=== PATIENT | male | born 1945 | race Caucasian/White ===

== ENCOUNTER 2024-04-11 13:00 | Inpatient (IN) | payer MEDICARE, SELFPAY ==
[2024-04-09 16:42] VITALS: BMI 22.7
[2024-04-09 17:10] VITALS: BP 121/56
--- NOTE | 2024-04-09 17:11 | ED.GENMED ---
ED Provider Triage
<Johnathan Last PA-C - Last Filed: 04/09/24 17:12>
-
Patient seen by provider in Triage?: Seen in Triage
Attestation: A medical screening examination has been initiated by a qualified medical provider. Based on the assessment performed at this time, it has been determined that an emergent medical condition may exist and the patient has been informed
that further medical evaluation and possible additional diagnostic testing may be needed.
HPI: 78-year-old male presents with daughter who he lives with with complaints of weakness and was told that he had low hemoglobin last week. He has been having intermittent red blood in his stools. He is not anticoagulated. They also notes
cough. He cannot take more than 10 steps without being short of breath. He was told last week his hemoglobin was 7.5. No prior history of anemia.
Vital signs are stable through triage. Initiated workup with labs type and screen COVID flu chest x-ray
GENERAL: Alert , in no apparent distress
EYE: No visual abnormalities.
NECK: Trachea midline
ENT: No visible abnormalities.
LUNGS: No acute respiratory distress
NEUROLOGICAL: Alert and oriented
SKIN: Skin intact. No visible changes.
MUSCULOSKELETAL: Moving extremities normally
PSYCH: Normal and appropriate interaction.
This is a medical evaluation conducted in person to initiate diagnostic evaluation and provide initial therapeutics. Please see further documentation by the treating clinician.
History of Present Illness
<Johnathan Lats PA-C - Last Filed: 04/09/24 17:12>
General
Chief Complaint: Abnormal Lab Value
Time Seen by Provider: 04/10/24 00:56
<Nick Maddox DO - Last Filed: 04/10/24 01:49>
History of Present Illness
History of Present Illness:
TIME OF INITIAL ENCOUNTER: 1 AM
HPI: The patient was brought here by family as he has been failing to thrive and increasingly appears anemic. He was found to be anemic last week as an outpatient. His doctor placed him on iron. Despite this, his symptoms continue. There was
some at least questionable concerns for bloody stools. He arrived with somewhat liquid brown stool in his diaper.
EXAM:
GENERAL: Is somewhat ill-appearing and pale
HEENT: Moist oral mucosa
CARDIOVASCULAR: Regular rate and rhythm
PULMONARY: No respiratory distress, breathing is nonlabored, equal and clear breath sounds
ABDOMEN: Soft and nontender with no peritoneal signs, mildly heme positive brown stool
NEUROLOGIC: Appears equally weak in all extremities, oriented to month and place, strength is equal in all extremities
EXTREMITIES: Moves all extremities equally, no tenderness, no edema
PYSCHIATRIC: Fair but somewhat unreliable historian with limited insight and judgment
NUMBER AND COMPLEXITY OF PROBLEMS ADDRESSED AT THE ENCOUNTER
� Chronic conditions affecting care: Diabetes
� Acute Exacerbation and/or Progression of Chronic Illness: This is an acute problem
� Differential Diagnosis includes: Symptomatic anemia, GI bleed, iron deficiency anemia, electrolyte abnormality
AMOUNT AND/OR COMPLEXITY OF DATA TO BE REVIEWED AND ANALYZED
� I performed an independent evaluation of and my interpretation is:
EKG:
CT:
X-rays:
Laboratory Studies: White blood cell count 5.9, hemoglobin 7.7, sodium 128, glucose 170
Other:
� Review of other/old records: No old records available for review in [facility]
� Clinical information was obtained by an independent historian: I spoke to family at bedside
� Prescriptions/Medications Considered but not given:
� Further testing considered but not performed:
RISK OF COMPLICATIONS AND/OR MORBIDITY OR MORTALITY OF PATIENT MANAGEMENT
� Social determinants of health affecting care: Lives at home with daughter and granddaughter
� Discussion with other providers: Hospitalist for admission
� Escalation of care including admission/observation vs risk of discharge considered: The patient reportedly had a hemoglobin of 10 last September and is now into the sevens. PMD tried iron supplementation however patient has been
doing poorly at home. There has been some concerns for him following. Family states that they cannot take care of him like this.
ANY OTHER UPDATES:
1:30 AM: Daughter signed consent for blood transfusion. The patient does have at least borderline positive stool for blood and his hemoglobin has dropped�will give 2 units of blood.
Phy Exam
<Nick Maddox DO - Last Filed: 04/10/24 01:49>
Physical Exam
Physical Exam:
See HPI
Course
<Johnathan Last PA-C - Last Filed: 04/09/24 17:12>
Orders/Labs/Results
Orders:
Orders
04/09/24 17:10
CR Chest - 2 Views Urgent
Comment:
Reason For Exam: sob
04/09/24 17:23
Type+Screen Urgent
COVID-19 Antigen Urgent
Source: Nasal Swab
Complete Blood Count/With Diff Urgent
Comprehensive Metabolic Panel Urgent
Iron Urgent
Comment: ADD ON
Total Iron Binding Urgent
Influenza A+B Rapid Molecular Urgent
SHEBA Source: Nasal Swab
Specimen Description:
04/09/24 17:54
ABO2 Urgent
BBK Wristband Number:
Associate notified that ABO2 has been ordered: [id number]
Date: 04/09/24
Time: 17:55
Can Filling Room Sweeper ID: [id number]
04/10/24 00:57
* Blood Bank Products Urgent
Blood Bank Products: *Packed RBC Leuko(PRBC's)
Quantity: 2
Transfuse Today: Yes
Reason: Anemia
04/10/24 01:08
Add On- LAB Urgent
Tests Added?: iron, tibc, ferritin
04/10/24 02:00
Flush (0.9% Sodium Chloride) [Flush (Nss)] See Dose Instructions IV PER PROTOCOL
04/10/24 17:23
Ferritin Urgent
Abnormal Lab Results
04/09/24
17:23
RBC 2.95 L 10^6/uL
(4.70-6.10)
Hgb 7.7 L g/dL
(13.0-18.0)
Hct 24.4 L %
(39.0-52.0)
MCH 26.1 L pg
(27.0-31.0)
MCHC 31.6 L g/dL
(33.0-37.0)
RDW 16.2 H %
(11.5-14.5)
Absolute Lymphs (auto) 1.0 L 10^3/uL
(1.2-3.4)
Absolute Monos (auto) 0.8 H 10^3/uL
(0.1-0.6)
Lymphocytes % 16.1 L %
(20.5-51.1)
Monocytes % 13.2 H %
(1.7-9.3)
Sodium 128 L mmol/L
(135-145)
Carbon Dioxide 21 L mmol/L
(22-30)
BUN 32 H mg/dl
(9-20)
Glucose 170 H mg/dl
(70-99)
Iron 43 L ug/dl
(49-181)
% Saturation 11 L %
(20-50)
Total Protein 5.3 L g/dl
(6.3-8.2)
Albumin 3.1 L g/dl
(3.5-5.0)
04/09/24 17:23
04/09/24 17:23
Vital Signs
Initial and Last Documented VS:
Initial Vital Signs
Temp Pulse Resp BP Pulse Ox
36.7 C 84 16 121/56 98
04/09/24 17:10 04/09/24 17:10 04/09/24 17:10 04/09/24 17:10 04/09/24 17:10
Last Documented Vital Signs
Temp Pulse Resp BP Pulse Ox
36.4 C 79 20 138/60 100
04/09/24 20:08 04/10/24 01:15 04/10/24 01:15 04/10/24 01:07 04/10/24 01:15
<Nick Maddox, DO - Last Filed: 04/10/24 01:49>
Orders/Labs/Results
Orders:
Orders
04/09/24 17:10
CR Chest - 2 Views Urgent
Comment:
Reason For Exam: sob
04/09/24 17:23
Type+Screen Urgent
COVID-19 Antigen Urgent
Source: Nasal Swab
Complete Blood Count/With Diff Urgent
Comprehensive Metabolic Panel Urgent
Iron Urgent
Comment: ADD ON
Total Iron Binding Urgent
Influenza A+B Rapid Molecular Urgent
SHEBA Source: Nasal Swab
Specimen Description:
04/09/24 17:54
ABO2 Urgent
BBK Wristband Number:
Associate notified that ABO2 has been ordered: [id number]
Date: 04/09/24
Time: 17:55
Can Filling Room Sweeper ID: [id number]
04/10/24 00:57
* Blood Bank Products Urgent
Blood Bank Products: *Packed RBC Leuko(PRBC's)
Quantity: 2
Transfuse Today: Yes
Reason: Anemia
04/10/24 01:08
Add On- LAB Urgent
Tests Added?: iron, tibc, ferritin
04/10/24 02:00
Flush (0.9% Sodium Chloride) [Flush (Nss)] See Dose Instructions IV PER PROTOCOL
04/10/24 17:23
Ferritin Urgent
Abnormal Lab Results
04/09/24
17:23
RBC 2.95 L 10^6/uL
(4.70-6.10)
Hgb 7.7 L g/dL
(13.0-18.0)
Hct 24.4 L %
(39.0-52.0)
MCH 26.1 L pg
(27.0-31.0)
MCHC 31.6 L g/dL
(33.0-37.0)
RDW 16.2 H %
(11.5-14.5)
Absolute Lymphs (auto) 1.0 L 10^3/uL
(1.2-3.4)
Absolute Monos (auto) 0.8 H 10^3/uL
(0.1-0.6)
Lymphocytes % 16.1 L %
(20.5-51.1)
Monocytes % 13.2 H %
(1.7-9.3)
Sodium 128 L mmol/L
(135-145)
Carbon Dioxide 21 L mmol/L
(22-30)
BUN 32 H mg/dl
(9-20)
Glucose 170 H mg/dl
(70-99)
Iron 43 L ug/dl
(49-181)
% Saturation 11 L %
(20-50)
Total Protein 5.3 L g/dl
(6.3-8.2)
Albumin 3.1 L g/dl
(3.5-5.0)
04/09/24 17:23
04/09/24 17:23
Vital Signs
Initial and Last Documented VS:
Initial Vital Signs
Temp Pulse Resp BP Pulse Ox
36.7 C 84 16 121/56 98
04/09/24 17:10 04/09/24 17:10 04/09/24 17:10 04/09/24 17:10 04/09/24 17:10
Last Documented Vital Signs
Temp Pulse Resp BP Pulse Ox
36.4 C 79 20 138/60 100
04/09/24 20:08 04/10/24 01:15 04/10/24 01:15 04/10/24 01:07 04/10/24 01:15
<Nick Maddox DO - Last Filed: 04/10/24 01:49>
*Critical Care Note
Total Time (30-74mins, 75-104mins- exclusive of procedures): Not Applicable
ED Attending Note
<Johnathan Last PA-C - Last Filed: 04/09/24 17:12>
-
Portions of this chart may have been created with voice recognition software.� Occasional wrong word or��sound alike� substitutions may have occurred due to the inherent limitations of voice recognition software.
Discharge Plan
Departure
Patient Disposition: Admit
Date of Disposition: 04/10/24
Time of Disposition: 01:11
Presentation/result/management discussed w/ accepting MD/DO: Hospitalist
Discharge Problem:
Anemia
Interventions
Interventions:
*Risk Screen - Suicide Last Done: 04/10/24 01:25
*General Assessment Last Done: 04/10/24 01:26
*Neglect/Abuse Screening Last Done: 04/10/24 01:25
Discharge Date and Time
Print Language: WELSH
[2024-04-09 17:42] LABS: % Basophils 0.2 % (0-2); % Eosinophils 0.3 % (0-6); % Immature Granulocytes 0.3 % (0-0.5); % Lymphocytes 16.1 % (20.5-51.1); % Monocytes 13.2 % (1.7-9.3); % Neutrophils 69.9 % (42.2-75.2); Absolute Monocytes 0.8 10^3/uL (0.1-0.6); Absolute Neutrophils 4.1 10^3/uL (1.4-6.5); Hematocrit 24.4 % (39.0-52.0); Hemoglobin 7.7 g/dL (13.0-18.0); Mean Corp Hgb Conc. 31.6 g/dL (33.0-37.0); Mean Corpuscular Hgb 26.1 pg (27.0-31.0); Mean Corpuscular Volume 82.7 fL (80.0-94.0); Nucleated Red Blood Cells % 0 % (-); Platelet Count 371 10^3/uL (130-400); Red Blood Cell Count 2.95 10^6/uL (4.70-6.10); Red Cell Dist. Width 16.2 % (11.5-14.5); White Blood Cell Count 5.9 10^3/uL (4.8-10.8)
[2024-04-09 17:59] LABS: ALT (SGPT) 33 U/L (0-50); AST (SGOT) 34 U/L (17-59); Albumin 3.1 g/dl (3.5-5.0); Alkaline Phosphatase 101 U/L (38-126); Blood Urea Nitrogen 32 mg/dl (9-20); Calcium 8.8 mg/dl (8.4-10.2); Carbon Dioxide 21 mmol/L (22-30); Chloride 100 mmol/L (98-107); Glucose 170 mg/dl (70-99); Potassium 4.1 mmol/L (3.5-5.1); Sodium 128 mmol/L (135-145); Total Bilirubin 0.5 mg/dl (0.2-1.3); Total Protein 5.3 g/dl (6.3-8.2); eGFR > 60.00
[2024-04-09 18:10] LABS: COVID-19 Antigen Negative (Negative)
[2024-04-09 20:08] VITALS: BP 113/50
[2024-04-09 23:54] VITALS: BP 125/54
[2024-04-10] VITALS (22 sets, daily range): BP systolic 97–144; BP diastolic 39–77; PULSE 77–84; BMI 24.6
[2024-04-10 01:31] LABS: Iron 43 ug/dl (49-181)
[2024-04-10 01:40] LABS: Percent Saturation 11 % (20-50); Total Iron Binding Capacity 383 ug/dl (261-462)
[2024-04-10 02:07] LABS: Ferritin 8.5 ng/ml (17.9-464.0)
--- NOTE | 2024-04-10 03:48 | HPS.HSE ---
Family Physician
-
Family Physician: Vamshi Floyd
Chief Complaint
-
Low hemoglobin
History of Present Illness
This is a 78-year-old with past medical history known for diabetes presenting to the emergency department with hemoglobin of 7.5 on outpatient labs.
Prior to interview patient seemed to have dementia. When I saw the patient was able to give me some history. He reports that he has been having fatigue for several weeks now. Reported that he has had gas bowel problems for which he takes Gas-X.
He has mild constipation which improves after passing gas and then he has a regular bowel movement. Denies seeing taylor blood in the stool. Denies black stools. Patient denies history of abdominal pain or reflux symptoms. He denies history of
peptic ulcer disease. He denies NSAID use.
Patient has never had a colonoscopy. He reported that family tells him his had weight loss but he does not feel that way. He did endorse some reduced appetite in the past was states his appetite is now improved. He denies any night sweats.
He denies any cough wheezing fevers or chills.
In the emergency department he was hemodynamically stable with a blood pressure of 120/50 pulse of 67 satting 100% on room air. His x-ray did showed a small right pleural effusion. His hemoglobin was 7.7 down from 10 about 1 year ago according to
family. He had brown stools with some heme positive. Sodium was 128 the rest of the electrolytes were stable. BUN was 30 with a creatinine of 1.0. He had low ferritin, low iron levels and low iron saturation.
Medical History
Past Medical History
Past Medical History: Reports NIDDM
Past Surgical History: Reports Appendectomy
Social History
Tobacco: Non-smoker
Alcohol: None
Drug: None
Personal:
Living: With Family
Employment: Retired
Family History
Family History: Not pertinent
Allergies / Home Medications
Allergies reflects when Allergies were last updated in [employer].
Home Medications with original date entered in [employer]
Allergy/Medication List:
Allergies
Allergy/AdvReac Type Severity Reaction Status Date / Time
No Known Allergies Allergy Verified 04/09/24 17:14
Home Medications
donepezil 04/10/24
metformin 1,000 mg tablet 1,000 mg PO DAILY 04/10/24
Review of Systems
-
Constitutional: Reports Fatigue
EENT: Reports No Symptoms
Respiratory: Reports No Symptoms
Cardiac: Reports No Symptoms
Abdomen/GI: Reports No Symptoms
: Reports No Symptoms
Musculoskeletal: Reports No Symptoms
Skin: Reports No Symptoms
Neurological: Reports No Symptoms
Endocrine: Reports No Symptoms
Hematologic/Lymphatic: Reports No Symptoms
Psych: Reports No Symptoms
Physical Exam
Vital Signs
Vital Signs
Temp Pulse Resp BP Pulse Ox
98.4 F 79 21 118/55 100
04/10/24 03:10 04/10/24 03:30 04/10/24 03:30 04/10/24 03:10 04/10/24 03:30
Physical Exam
General: Well Developed, No Apparent Distress, Comfortable and Conversant
HEENT: NormoCephalic, Anicteric and Moist mucous membranes
Respiratory: Clear
Cardiac: S1/S2 and Regular Rhythm
Breast: Deferred by me
GI: Soft, Non Tender, Non Distended and Normal Bowel Sounds
Rectal: Hem Positive
Genito-urinary: Deferred by me
Musculoskeletal: No Clubbing, No Cyanosis, Edema, Left Lower Extremity (1+) and Edema, Right Lower Extremity (1+)
Neuro: AO x 3 and Nonfocal/grossly intact
Hematologic/Lymphatic: No Lymphadenopathy
Psych: Calm
Laboratory Results
-
04/09/24 17:23
04/09/24 17:23
Laboratory Results
Total Bilirubin 0.5 mg/dl (0.2-1.3) 04/09/24 17:23
AST 34 U/L (17-59) 04/09/24 17:23
ALT 33 U/L (0-50) 04/09/24 17:23
Alkaline Phosphatase 101 U/L (38-126) 04/09/24 17:23
Data Reviewed
-
Diagnostic Radiology: Image Personally Visualized and interpreted and Report Reviewed by me
Lab Data: Labs Reviewed by me
Old Records: Reviewed
Impression/Plan
-
IMPRESSION:
78-year-old with history of [id number] diabetes, dementia who presents to the emergency department with symptomatic anemia and hemoglobin of 7.7. Heme positive stool. Currently had a hemoglobin of 10 about 1 year ago. No prior
colonoscopy. No history of peptic ulcer or GERD. No melena or hematochezia. Low iron, saturation and ferritin. His sodium was 128. On exam he does have 1+ bilateral lower extremity edema. No known history of CHF.
PLAN:
1. Symptomatic anemia - Suspect iron deficiency anemia over the last year.
- admit to med/surg for now
- transfusing 1 unit of iron
- iron 325 supplementation daily
- given ERIS, likely GI losses, not interested in inpatient colonoscopy
- trend h/h, if stable can be d/c'd on iron with outpatient follow up
-no thinners
2. Edema - no known chf, bp stable
- ecg
- check bnp, if abnormal check echo
- check tsh
3. DM II
- insulin sliding scale for now
- metformin bid
4. Hyponatremia - Looks euvolemic but may be dry
- getting blood
- check orthostatics
- check urine Na and osms
- fluids versus restriction pending results and repeat Na
DVT PPX - SCDs for now
Code status - full code
--- NOTE | 2024-04-10 05:35 | EDRN ---
Spoke w/ admitting team regarding ordered AM labs/second unit of blood ordered. Per Tavia Dawn and Dr. Cannon, pt. does not need second blood transfusion at this time. RN to obtain ordered morning labs 2 hours after blood transfusion
completion, which is at 06:33.
[2024-04-10 06:49] LABS: Hematocrit 26.4 % (39.0-52.0); Hemoglobin 8.4 g/dL (13.0-18.0); Mean Corp Hgb Conc. 31.8 g/dL (33.0-37.0); Mean Corpuscular Hgb 27.3 pg (27.0-31.0); Mean Corpuscular Volume 85.7 fL (80.0-94.0); Mean Platelet Volume 8.9 fL (7.4-10.4); Platelet Count 321 10^3/uL (130-400); Red Blood Cell Count 3.08 10^6/uL (4.70-6.10); Red Cell Dist. Width 16.5 % (11.5-14.5); White Blood Cell Count 6.6 10^3/uL (4.8-10.8)
[2024-04-10 07:02] LABS: Osmolality Urine 944 mOsm/kg (300-900)
[2024-04-10 07:06] LABS: Urine Sodium 134 mmol/L (30-90)
[2024-04-10 07:11] LABS: NT-proBNP 2080 pg/ml
[2024-04-10 07:15] LABS: Blood Urea Nitrogen 31 mg/dl (9-20); Calcium 8.2 mg/dl (8.4-10.2); Carbon Dioxide 21 mmol/L (22-30); Chloride 103 mmol/L (98-107); Estimated Creatinine Clearance 73 ml/min; Glucose 167 mg/dl (70-99); Magnesium 2.1 mg/dl (1.6-2.3); Potassium 4.2 mmol/L (3.5-5.1); Sodium 132 mmol/L (135-145); eGFR > 60.00
--- NOTE | 2024-04-10 09:13 | CON.GI ---
Addendum entered and electronically signed by Narciso Richardson MD 04/10/24 15:55:
Patient seen and examined, agree with nurse practitioner note. Patient is an 78-year-old male with past medical history as noted presents with rectal bleeding and leakage. He said the symptoms for the past several months, noted to be anemic with
iron deficient parameters. He has had significant weight loss around this time also. He has never had a colonoscopy, though otherwise has been medically doing well up until this time. Rectal exam by nurse practitioner showed palpable mass in the
rectum. Exam otherwise is benign, trace lower extremity edema. I had extensive discussion with the patient and his family, discussing that this highly suspicious for malignancy. He is unsure if he would want to pursue any treatment, and is
agreeable though was not sure and is agreeable for flexible sigmoidoscopy tomorrow which we will plan. Further recommendations pending flexible sigmoidoscopy results.
Addendum entered and electronically signed by NENO Roblero 04/10/24 14:40:
I updated daughter and son about mass with patient consent. They will review with patient for work up for consider comfort with no texting vs colonoscopy or flex to eval mass and CT next. Family contact to be added to chart per nursing staff.
Original Note:
Consultation
-
Date/Time Consultation Requested: 04/10/24629
Date/Time Consultation Performed: 04/10/24 0915
Requesting Provider: Kassandra vidales MD
Performing Provider: NENO Zheng, Hebert Richardson MD
Reason for Consultation: anemia
Medical History
Chief Complaint / HPI
Chief Complaint: change on bowel habits, shortness of breath
History of Present Illness:
Pt is an 78yo with hx NIDDM with onset of shortness of breath, weakness and several months of change on bowel habit with noted rectal bleeding and leakage. He also admits to recent onset LE edema. He was recently noted with low hbg and presents to
ER for evaluation. On admission he is noted with hbg 7.7 with normal MCV iron deficiency with Na 132, BUN 31, Albumin 3.1. ER rectal with mild heme + stool.
He currently states about 6 months ago need for use of attend for rectal leakage. Symptoms have progressed over time with some weight loss and decreased appetite. He also admits to seeing occasional blood. He denies odynophagia, dysphagia,
GERD, nausea, vomiting, abdominal pain, constipation, or black stools. + NSAID use several times per week. Denies hx EGD or colonoscopy in past.
Past Medical History
Past Medical History: NIDDM
Social History
Tobacco: Former Smoker
Alcohol: Former (heavy use many years ago)
Drug: None
Living: With Family
Employment: Retired
Family History
Family History: Other (denies family hx colon CA or polyps)
Allergies / Home Medications
Allergy/AdvReac Type Severity Reaction Status Date / Time
No Known Allergies Allergy Verified 04/09/24 17:14
�Medication �Instructions �Recorded
donepezil 10 mg tablet 10 mg PO HS 04/10/24
glipizide 2.5 mg tablet, extended 2.5 mg PO DAILY 04/10/24
release 24 hr
metformin 1,000 mg tablet 1,000 mg PO BID 04/10/24
simvastatin 40 mg tablet 40 mg PO QPM 04/10/24
Review of Systems
-
History Source: Patient and Family (pt declined for provider to call )
Constitutional: Reports Weight Loss
EENT: Reports No Symptoms
Respiratory: Reports No Symptoms
Abdomen/GI: Reports Diarrhea (with fecal leakage ) and Bloody Stools
: Reports No Symptoms
Musculoskeletal: Reports No Symptoms
Neurological: Reports Weakness
Endocrine: Reports No Symptoms
Hematologic/Lymphatic: Reports Bleeding
Vital Signs
Temp Pulse Resp BP Pulse Ox
98.4 F 68 18 114/55 98
04/10/24 04:33 04/10/24 07:00 04/10/24 07:00 04/10/24 07:00 04/10/24 07:00
Physical Exam
Exam
General: Other (pale appearing )
HEENT: Normocephalic and Anicteric
Respiratory: Clear
Cardiac: Regular Rhythm
GI: Soft and Distended (minimal )
Rectal: Other (palpable rectal mass at tip of finger with noted incontinence of stool and blood assist with nurse Wilbert -- pt agreeable to exam )
Musculoskeletal: No Clubbing and No Cyanosis
Skin: Warm and Dry
Neuro: Awake, Alert, AO x 3 and Other (occasional forgetfulness to questions)
Psych: Calm
Results
WBC 6.6 10^3/uL (4.8-10.8) 04/10/24 06:41
Hgb 8.4 g/dL (13.0-18.0) L 04/10/24 06:41
Hct 26.4 % (39.0-52.0) L 04/10/24 06:41
MCV 85.7 fL (80.0-94.0) 04/10/24 06:41
Plt Count 321 10^3/uL (130-400) 04/10/24 06:41
Absolute Neuts (auto) 4.1 10^3/uL (1.4-6.5) 04/09/24 17:23
Sodium 132 mmol/L (135-145) L 04/10/24 06:42
Potassium 4.2 mmol/L (3.5-5.1) 04/10/24 06:42
Chloride 103 mmol/L (98-107) 04/10/24 06:42
Carbon Dioxide 21 mmol/L (22-30) L 04/10/24 06:42
BUN 31 mg/dl (9-20) H 04/10/24 06:42
Creatinine 0.8 mg/dL (0.7-1.3) 04/10/24 06:42
Calcium 8.2 mg/dl (8.4-10.2) L 04/10/24 06:42
Total Bilirubin 0.5 mg/dl (0.2-1.3) 04/09/24 17:23
AST 34 U/L (17-59) 04/09/24 17:23
ALT 33 U/L (0-50) 04/09/24 17:23
Alkaline Phosphatase 101 U/L (38-126) 04/09/24 17:23
Diagnostic Image Results:
Prior GI Procedures:
EGD: pt denies
Colonoscopy: pt denies
Assessment / Plan
-
Pt is an 78yo with hx NIDDM with onset of shortness of breath, weakness and several months of change on bowel habit with noted rectal bleeding and leakage. He also admits to recent onset LE edema. He was recently noted with low hbg and presents to
ER for evaluation. On admission he is noted with hbg 7.7 with normal MCV iron deficiency with Na 132, BUN 31, Albumin 3.1. ER rectal with mild heme + stool. He currently states about 6 months ago need for use of attend for rectal leakage.
Symptoms have progressed over time with some weight loss and decreased appetite. He also admits to seeing occasional blood. + NSAID use several times per week. Denies hx EGD or colonoscopy in past. / noted papable rectal mass.
-new iron deficiency anemia
-change in bowel habits with fecal leakage
-retal mass on exam 04/10
-weakness with failure to thrive/decreased appetite
-LE edema
-occasional NSAID use
other med problems:
-NIDDM
PLAN:
etiology of symptoms of change in bowel pattern and new Iron deficiency anemia concern for occult GI process with palpable rectal mass on exam, less likely but in differential - PUD with NSAID use, ectasia vs other
agree with transfusion
will need to consider EGD/colon
pt states prefers OP testing
if pt declining IP testing consider CT prior to discharge
I discuss with patient he will continue to have bowel leakage until completes work up for palpable mass
trend hbg
change in IV iron
add PPI daily
pt remain on regular diet
I offered to call family and pt declines
I reviewed with nursing to contact GI when family arrives to further discuss as pt declining for me to call
-
-
Thank you for consultation and allowing me to participate in the patient's care. Please call the [facility] GI physician during the after hours with any questions or concerns.
[2024-04-10 09:47] LABS: Glucose - Point of Care 176 mg/dl (70-99)
--- NOTE | 2024-04-10 10:08 | W.PN.HOSP.TC ---
Addendum entered and electronically signed by Ranjit Ulloa MD 04/10/24 16:14:
Seen and examined by me independently in collaboration with the medical record librarian.
Lab data and imaging data reviewed.
Addendum as below :
Patient presents with severe symptomatic anemia with iron deficiency. He also has rectal incontinence and found to have rectal tumor by digital exam by GI. Never had a colonoscopy. All concerning for colon malignancy. Patient currently declining
endoscopic eval. Will continue to follow see if he changes his mind. Status posttransfusion. Follow H&H.
Patient with bilateral lower extremity but denies any heart disease. No JVD. Denies any shortness of breath. Bibasilar crackles heard. Check an echocardiogram. Currently not hypoxic.
Discussed GI
Total time spent on today's encounter was 52 minutes which included time spent in counseling the patient/family regarding diagnosis and treatment plan as listed above, goals of care, and symptom management. Case was discussed with nursing staff,
specialists, and care coordinators/case management. All labs and imaging personally reviewed by me. Remainder the time spent in detailed review of previous records, lab data, imaging, and other medical provider documentation.
Original Note:
Today's Communication/Plan
-
C/w Iron replacement. Pending echo. Fluid restriction. Monitor H&H
Assessment / Plan
Assessment / Plan
78 year old man
#Melena
#unintentional Weight loss
#New onset Anemia
- Rectal mass palpable on physical exam.
- GI rec IP EGD/colonoscopy, but patient declined; would prefer OP. Recommending CT scan abdomen w/ IV/Oral prior to discharge if he refuses EGD/Colonscopy.
Apparently patient declining discussion with family regarding mass and preferring out patient workup.
#Anemia, likely Iron Deficiency
- Hgb 7.7 on admission, s/p 1U PRBC with improvement to 8.4.
- Iron studies show low iron, low saturation, low ferritin
- PO & IV iron replacement
- Recheck H&H
#BL/LE Edema,
- possibly secondary to CHF vs. fluid overload from transfusion (though less likely given extent of edema & chronicity of other symptoms)
- elevated ProBNP, R pleural effusion, complains of chronic cough with occasional clear/yellow sputum
- will give 1 dose IV Lasix 20mg. Check ECHO.
#Small Left Pleural Effusion - saturations >88%. No shortness of breath.
#Hyponatremia, possible SIADH
- 128 on admission with high urine sodium and high urine osmolality. Improved to 132 this morning w/o fluids.
- Given concern for rectal mass, malignant cause of SIADH is a serious consideration
- Fluid restriction 40oz
#NIDDM - hold glipizide c/w metformin. LDISS
#Hypercholesterolemia - c/w simvastatin
#Dementia - c/w donepezil
Diet: 2000 Calorie Diabetic, 40oz fluid restriction
DVT PPx: SCDs
Code Status: Full Code
Anticipated Discharge: 24 - 48 hours
Subjective/Interval History
-
Feeling well this morning. No shortness of breath, dizziness, weakness. He is feeling stronger than when he came in. he denies any taylor bloody bowel movements.
Objective Data
-
Labs:
Laboratory Results
04/10/24 04/10/24
06:41 06:42
WBC 6.6
Hgb 8.4 L
Hct 26.4 L
Plt Count 321
Sodium 132 L
Potassium 4.2
Chloride 103
Carbon Dioxide 21 L
BUN 31 H
Creatinine 0.8
Glucose 167 H
Calcium 8.2 L
Vital Signs:
Vital Signs
Temp Pulse Resp BP Pulse Ox
98.4 F 74 24 106/50 100
04/10/24 04:33 04/10/24 10:00 04/10/24 10:00 04/10/24 10:00 04/10/24 10:00
I&O
04/09/24 04/10/24 04/11/24
06:59 06:59 06:59
Intake Total 250 / 250
Balance 250 / 250
Review of Systems
-
Unable to obtain full review of systems at this time due to: Dementia
History Source: Patient
Constitutional: Reports No Symptoms
EENT: Reports No Symptoms Reported
Respiratory: Reports No Symptoms
Cardiac: Reports No Symptoms
Abdomen/GI: Reports No Symptoms
Genitourinary: Reports No Symptoms
Musculoskeletal: Reports No Symptoms
Skin: Reports No Symptoms
Neuro: Reports No Symptoms
Physical Exam
-
General: Well Developed, Well Nourished, No Apparent Distress and Comfortable
HEENT: Normocephalic, Atraumatic, Moist Mucous Membranes, Anicteric, PERRLA, Nose Appears Normal and Ears Appear Normal
Respiratory: Clear to Auscultation; Negative Wheezes, Rales or Rhonchi
Cardiac: Regular Rhythm and S1/S2; Negative Murmur
GI: Soft, Nontender, Nondistended and Normal Bowel Sounds
Musculoskeletal: No Clubbing, No Cyanosis, Edema, Right Lower Extrem and Edema, Left Lower Extrem
Skin: Warm and Dry
Neuro: AO x 3
[2024-04-10] MEDS: PROTONIX IV 40 MG IV (10:29)
[2024-04-10] MEDS: GLUCOPHAGE 1000 MG PO ×2 (10:30→18:03)
[2024-04-10] MEDS: NSS (PRESERVATIVE FREE) 10 ML IV (10:30)
[2024-04-10] MEDS: NOVOLOG FLEXPEN-LOW RESISTANCE SC ×2 (11:05→15:06)
[2024-04-10] MEDS: LASIX 20 MG IV (11:46)
[2024-04-10 14:30] LABS: Glucose - Point of Care 213 mg/dl (70-99)
[2024-04-10] MEDS: FERRLECIT 110 MG IV (15:06)
[2024-04-10] MEDS: FLUSH (NSS) 1 FLUSH IV (15:07)
--- NOTE | 2024-04-10 15:07 | PTCARENOTE ---
Received pt from ER via stretcher, accompanied by ER staff. Pt AAO x3, forgetful. ALBRECHT slowly; unable to stand. Pt transferred to bed with assist x3. VSS. Pt has (+) sacral/bilat LE edema. On room air- pulseox 98%, no SOB noted. Abd large,
soft, to start 2000 neda diet with 1200 ml flreswtriction. Voided in urinal upon arrival to unit. Resting in bed at present, no c/o;family at bedside. Will continue to monitor.
[2024-04-10 17:58] LABS: Glucose - Point of Care 195 mg/dl (70-99)
[2024-04-10] MEDS: NOVOLOG FLEXPEN-LOW RESISTANCE 1 UNITS SC (18:03)
[2024-04-10] MEDS: MELATONIN 5 MG PO (19:51)
[2024-04-10 21:19] LABS: Glucose - Point of Care 206 mg/dl (70-99)
[2024-04-11] VITALS (8 sets, daily range): BP systolic 15–145; BP diastolic 52–70
[2024-04-11 05:57] LABS: Glucose - Point of Care 157 mg/dl (70-99)
[2024-04-11 07:34] LABS: Hematocrit 24.7 % (39.0-52.0); Hemoglobin 8.1 g/dL (13.0-18.0); Mean Corp Hgb Conc. 32.8 g/dL (33.0-37.0); Mean Corpuscular Hgb 27.3 pg (27.0-31.0); Mean Corpuscular Volume 83.2 fL (80.0-94.0); Mean Platelet Volume 9.4 fL (7.4-10.4); Platelet Count 316 10^3/uL (130-400); Red Blood Cell Count 2.97 10^6/uL (4.70-6.10); Red Cell Dist. Width 16.9 % (11.5-14.5); White Blood Cell Count 5.9 10^3/uL (4.8-10.8)
[2024-04-11 08:00] LABS: Blood Urea Nitrogen 33 mg/dl (9-20); Calcium 8.3 mg/dl (8.4-10.2); Carbon Dioxide 20 mmol/L (22-30); Chloride 103 mmol/L (98-107); Estimated Creatinine Clearance 53 ml/min; Glucose 137 mg/dl (70-99); Potassium 3.8 mmol/L (3.5-5.1); Sodium 132 mmol/L (135-145); eGFR > 60.00
--- NOTE | 2024-04-11 08:49 | W.PN.HOSP.TC ---
Addendum entered and electronically signed by Ranjit Ulloa MD 04/11/24 15:55:
Seen and examined by me independently in collaboration with the medical assistant internal medicine.
Lab data and imaging data reviewed.
Addendum as below :
Sigmoidoscopy shows obstructing rectal mass. The scope could not be passed beyond it. Consult colorectal surgery. Await CT abdomen pelvis and chest report.
Improved H&H with transfusion. Follow CBC.
Also clinical concern for subacute CHF decompensation with increasing lower extremity edema possibly combination of LV dysfunction and severe anemia. Consult cardiology for newfound LV dysfunction. Start on IV Lasix and follow weights and BMP.
Discussed with son at bedside.
Total time spent on today's encounter was 52 minutes which included time spent in counseling the patient/family regarding diagnosis and treatment plan as listed above, goals of care, and symptom management. Case was discussed with nursing staff,
specialists, and care coordinators/case management. All labs and imaging personally reviewed by me. Remainder the time spent in detailed review of previous records, lab data, imaging, and other medical provider documentation.
Pxiticsuhiyl-denidhwqvodd-iakhpri secondary to CHF not SIADH. FR and diuretics .
Original Note:
Today's Communication/Plan
-
Pending flex sig today. C/ow Lasix/ Monitor H&H.
Assessment / Plan
Assessment / Plan
78 year old man
#Melena
#unintentional Weight loss
#New onset Anemia
- Rectal mass palpable on physical exam.
- GI rec IP EGD/colonoscopy, but patient declined; would prefer OP. Recommending CT scan abdomen w/ IV/Oral prior to discharge if he refuses EGD/Colonscopy.
Agreed to flex sig. Will go today after prep
#Anemia, likely multifactorial (Acute Blood Loss/Iron Deficiency)
- Hgb 7.7 on admission, s/p 1U PRBC with improvement to 8.4.
- Iron studies show low iron, low saturation, low ferritin
- PO & IV iron replacement
- Hgb 8.1 today from 8.4.
- Going for flex sig today
#Acute Exacerbation of HFmrEF
- elevated ProBNP, R pleural effusion, complains of chronic cough with occasional clear/yellow sputum
- C/w Lasix 20mg IV.
- Echo EF 40-45%
#Small Left Pleural Effusion - saturations >88%. No shortness of breath.
#Hyponatremia, possible SIADH
- 128 on admission with high urine sodium and high urine osmolality. Improved to 132 this morning w/o fluids.
- Given concern for rectal mass, malignant cause of SIADH is a serious consideration
- Fluid restriction 40oz
#NIDDM - hold glipizide, c/w metformin. LDISS
#Hypercholesterolemia - c/w simvastatin
#Dementia - c/w donepezil
Diet: 2000 Calorie Diabetic, 40oz fluid restriction
DVT PPx: SCDs
Code Status: Full Code
Anticipated Discharge: 24 - 48 hours
Subjective/Interval History
-
Still having rectal bleeding. No abdominal pain, nausea, vomiting, fever, chills, shortness of breath or chest pain.
Objective Data
-
Labs:
Laboratory Results
04/11/24
07:02
WBC 5.9
Hgb 8.1 L
Hct 24.7 L
Plt Count 316
Sodium 132 L
Potassium 3.8
Chloride 103
Carbon Dioxide 20 L
BUN 33 H
Creatinine 1.0
Glucose 137 H
Calcium 8.3 L
Vital Signs:
Vital Signs
Temp Pulse Resp BP Pulse Ox
98.8 F 72 18 112/49 99
04/10/24 23:14 04/10/24 23:14 04/10/24 23:14 04/10/24 23:14 04/10/24 23:14
I&O
02/06/2904/11/24 04/12/24
06:59 06:59 06:59
Intake Total 250 / 250 1070 / 1070
Output Total 1325 / 1325
Balance 250 / 250 -255 / -255
Review of Systems
-
History Source: Patient
All other systems: Reviewed and negative
Constitutional: Reports No Symptoms
EENT: Reports No Symptoms Reported
Respiratory: Reports No Symptoms
Cardiac: Reports No Symptoms
Abdomen/GI: Reports Bloody Stools; Denies Abdominal Pain, Nausea, Vomiting, Diarrhea or Hematemesis
Breast: Reports N/A
Genitourinary: Reports No Symptoms
Musculoskeletal: Reports No Symptoms
Skin: Reports No Symptoms
Neuro: Reports No Symptoms
Physical Exam
-
General: Well Developed, Well Nourished, No Apparent Distress and Comfortable
HEENT: Normocephalic, Atraumatic, Moist Mucous Membranes, Anicteric, Winifred Conjunctivae, PERRLA, Nose Appears Normal and Ears Appear Normal
Respiratory: Clear to Auscultation; Negative Wheezes, Rales or Rhonchi
Cardiac: Regular Rhythm, S1/S2 and Murmur
Breast: N/A
GI: Soft, Nontender, Nondistended and Normal Bowel Sounds
Musculoskeletal: No Clubbing, No Cyanosis, Edema, Right Lower Extrem and Edema, Left Lower Extrem
Skin: Warm and Dry
Neuro: AO x 3
[2024-04-11 09:06] LABS: Glucose - Point of Care 154 mg/dl (70-99)
[2024-04-11] MEDS: GLUCOPHAGE 1000 MG PO ×2 (09:06→17:17)
[2024-04-11] MEDS: PROTONIX IV 40 MG IV (09:06)
[2024-04-11] MEDS: NOVOLOG FLEXPEN-LOW RESISTANCE 1 UNITS SC (09:06)
[2024-04-11] MEDS: NSS (PRESERVATIVE FREE) 10 ML IV (09:06)
[2024-04-11 12:21] LABS: Glucose - Point of Care 112 mg/dl (70-99)
[2024-04-11] MEDS: NOVOLOG FLEXPEN-LOW RESISTANCE SC ×2 (12:50→16:58)
[2024-04-11] MEDS: OMNIPAQUE 50 ML PO (13:21)
[2024-04-11] MEDS: FERRLECIT 110 MG IV (13:35)
--- NOTE | 2024-04-11 14:27 | PTCARENOTE ---
pt back from GI lab s/p Flex sigmoid. pt is AAO*3, Vss. pt oriented to the room. call bergman within the reach.
--- NOTE | 2024-04-11 15:37 | CM ---
Pt seen bedside w/ son, Peter. Initial assessment completed. Admitted for low hgb.
Pt reports that he lives w/ family in a 2STH- 2 steps to enter. Pt reports he uses cane primarily to ambulate and has grab bars in the bathroom for support. Pt stated his daughter assists w/ personal care, dressing and meals.
Pt denies SNF/VN/PT hx.
Address, point of contact and insurance verified. Pt is showing up as self-pay, however, pt confirmed he has Medicare
Pt requested to have his son, Peter, added to contact list. appellate law clerk to update
PCP: Dr. Floyd
Pharmacy: [facility]
No skilled PT needed
Pt LOC changed to IP today
Plan: Home; no needs likely
[2024-04-11 16:51] LABS: Glucose - Point of Care 106 mg/dl (70-99)
[2024-04-11] MEDS: LIPITOR 20 MG PO (17:17)
[2024-04-11 21:31] LABS: Glucose - Point of Care 184 mg/dl (70-99)
[2024-04-11] MEDS: ARICEPT 10 MG PO (22:19)
[2024-04-11] MEDS: MELATONIN 10 MG PO (22:19)
[2024-04-12] MEDS: ROBITUSSIN 100 MG PO (01:13)
[2024-04-12 06:00] VITALS: BMI 22.8
--- NOTE | 2024-04-12 06:13 | W.PN.GI.CBS2 ---
Today's Communication / Plan
-
Please see assessment and plan for details.
Assessment / Plan
-
1. Rectal mass: Consistent with adenocarcinoma, though final pathology is pending. I reviewed CT scan with him, no signs of distant metastasis. Will await final pathology, though will defer conversations about possible treatment to oncology and
surgery.
We will sign off for now, please call back with any further questions.
Subjective
Subjective
Date of Service: April 12, 2024
Patient feeling okay, tolerated diet without difficulty. No abdominal pain, fever or chills. CT scan noted, rectal mass noted though no obvious metastasis.
Objective
Data Reviewed
Laboratory Data:
Laboratory Results
Magnesium 2.1 mg/dl (1.6-2.3) 04/10/24 06:42
Total Bilirubin 0.5 mg/dl (0.2-1.3) 04/09/24 17:23
AST 34 U/L (17-59) 04/09/24 17:23
ALT 33 U/L (0-50) 04/09/24 17:23
Alkaline Phosphatase 101 U/L (38-126) 04/09/24 17:23
Vital Signs and I&O:
Vital Signs
Temp Pulse Resp BP Pulse Ox
98.7 F 81 18 145/68 98
04/11/24 23:40 04/11/24 23:40 04/11/24 23:40 04/11/24 23:40 04/11/24 23:40
I&O
04/10/24 04/11/24 04/12/24
06:59 06:59 06:59
Intake Total 250 / 250 1070 / 1070 240 / 240
Output Total 1325 / 1325 250 / 250
Balance 250 / 250 -255 / -255 -10 / -10
Physical Exam
Physical Exam
General: NAD
Abdomen: normal bowel sounds, soft, no tenderness, no masses or bruits, no ascites
[2024-04-12 07:24] LABS: Hematocrit 25.9 % (39.0-52.0); Hemoglobin 8.4 g/dL (13.0-18.0); Mean Corp Hgb Conc. 32.4 g/dL (33.0-37.0); Mean Corpuscular Hgb 27.4 pg (27.0-31.0); Mean Corpuscular Volume 84.4 fL (80.0-94.0); Mean Platelet Volume 9.1 fL (7.4-10.4); Platelet Count 320 10^3/uL (130-400); Red Blood Cell Count 3.07 10^6/uL (4.70-6.10); Red Cell Dist. Width 17.5 % (11.5-14.5)
[2024-04-12 07:40] LABS: Glucose - Point of Care 192 mg/dl (70-99)
[2024-04-12 07:45] VITALS: BP 123/58
[2024-04-12 07:50] LABS: Blood Urea Nitrogen 36 mg/dl (9-20); Calcium 8.7 mg/dl (8.4-10.2); Carbon Dioxide 24 mmol/L (22-30); Chloride 103 mmol/L (98-107); Estimated Creatinine Clearance 59 ml/min; Glucose 159 mg/dl (70-99); Potassium 4.2 mmol/L (3.5-5.1); Sodium 129 mmol/L (135-145); eGFR > 60.00
[2024-04-12] MEDS: PROTONIX IV 40 MG IV (09:06)
[2024-04-12] MEDS: NOVOLOG FLEXPEN-LOW RESISTANCE 1 UNITS SC (09:06)
[2024-04-12] MEDS: NSS (PRESERVATIVE FREE) 10 ML IV (09:07)
--- NOTE | 2024-04-12 09:41 | CON.CRS ---
Consultation
-
Date/Time Consultation Requested: 04/11/2024,
Date/Time Consultation Performed: 04/12/2024, 08:00
Requesting Provider: Sai Larson MD
Performing Provider: Johnathan Figueroa MD
Reason for Consultation: rectal cancer
Medical History
-
Chief Complaint: weakness/bloody stools
History of Present Illness:
78-year-old male presents to [facility] on 04/10/2024 complaining of weakness and bloody stools. He has not been able to take more than 10 steps without being short of breath in the recent past. He had blood work as an outpatient that showed a
hemoglobin of 7.5 which was new for him. The patient denies any bloating or cramping and has been eating okay at home. He has though lost about 15 pounds in the past 3 months. The bleeding is intermittent throughout the past few months. He has
no issues with urination. His bowel movements have been normal and regular for him. He had an appendectomy at 4 years old but otherwise has had no other bowel surgeries in the past. He denies a family history of rectal or colon cancer. He has
never had a colonoscopy.
Gastroenterology was consulted and the patient and a palpable mass was noted on rectal exam. He underwent a flexible sigmoidoscopy by Dr. Richardson yesterday which showed a fungating partially obstructing large mass in the distal rectum. The mass
was circumferential unable to be passed with an endoscope. There was active oozing present. He then subsequently underwent a CT of the chest abdomen and pelvis for metastatic workup. The 5 cm soft tissue density mass in the rectum was again seen.
There was no definitive evidence of metastatic disease otherwise. On admission his hemoglobin was 7.7 and is 8.4 today. His vitals have remained normal. He was transfused 1 unit the day of admission. Given the above findings, we have been
consulted for further surgical opinion.
Past Medical History
Past Medical History: NIDDM
Past Surgical History: Appendectomy
Social History
Tobacco: Former Smoker
Alcohol: Former
Drug: None
Living: With Family
Family History
Family History: Reviewed & Not Pertinent
Allergies / Home Medications
Allergy/AdvReac Type Severity Reaction Status Date / Time
No Known Allergies Allergy Verified 04/10/24 14:37
�Medication �Instructions �Recorded �Confirmed �Type
donepezil 10 mg tablet 10 mg PO HS Neurological Condition 04/10/24 04/10/24 History
glipizide 2.5 mg tablet, extended 2.5 mg PO DAILY Diabetes 04/10/24 04/10/24 History
release 24 hr
metformin 1,000 mg tablet 1,000 mg PO BID Diabetes 04/10/24 04/10/24 History
simvastatin 40 mg tablet 40 mg PO QPM High Cholesterol 04/10/24 04/10/24 History
Review of Systems
-
History Source: Patient
Constitutional: Weight Loss, Fatigue and Other (weakness)
Abdomen/GI: Bloody Stools
A 10 point review of systems was completed, and was negative except as per HPI.
Physical Exam
Vital Signs
Temp 97.9 F 04/12/24 07:45
Pulse 76 04/12/24 07:45
Resp Rate 20 04/12/24 07:45
Blood pressure 123/58 04/12/24 07:45
SaO2 96 04/12/24 07:45
04/11/24 04/12/24 04/13/24
06:59 06:59 06:59
Actual Weight 69.003 kg
Body Mass Index (BMI) 24.6
Lab Results / Allergies
04/12/24 06:55
04/12/24 06:55
WBC 7.0 10^3/uL (4.8-10.8) 04/12/24 06:55
Hgb 8.4 g/dL (13.0-18.0) L 04/12/24 06:55
Hct 25.9 % (39.0-52.0) L 04/12/24 06:55
Plt Count 320 10^3/uL (130-400) 04/12/24 06:55
Abs Immat Gran (auto) 0.0 10^3/uL (0-0.05) 04/09/24 17:23
Neutrophils % 69.9 % (42.2-75.2) 04/09/24 17:23
Allergy/AdvReac Type Severity Reaction Status Date / Time
No Known Allergies Allergy Verified 04/10/24 14:37
Physical Exam
General: No Apparent Distress and Comfortable
GI: Soft, Non Tender and Non Distended
Rectal: Other (5-6cm into rectum a circumferential mass was noted with anterior portion more prominent, blood on fingertip)
Skin: Warm and Dry
Neuro: AO x 3
Hematologic/Lymphatic: No Lymphadenopathy
Psych: Calm
Data Reviewed
-
CT Scan: Image Personally Visualized and interpreted, Report Reviewed by me and Discussed with Patient
Medical Tests (Nuc Med, Echo etc): Report Reviewed by me and Discussed with Patient
Labs: Labs Reviewed by me, Discussed with Physician and Discussed with Patient
Old Records: Reviewed
Assessment / Plan
-
Assessment: 78-year-old male presented to the ER with intermittent bleeding, weakness, and weight loss, found with anemia status post 1 unit packed red blood cells and rectal mass on sigmoidoscopy
Plan:
-Discussed studies at length with the patient. Given he is able to eat and continue to pass stool, there is no need for urgent colostomy diversion. However we did discuss should things change and he obstruct, he would require surgery.
-MRI pelvis with rectal cancer protocol ordered given partial obstruction
-Stool softener MiraLAX daily
-CEA ordered
-Raissa Ulrich, our rectal cancer nurse navigator, has been notified of his case
-Will need eventual chemo and radiation. The patient is interested in pursuing full treatment at this time.
-Will update his son, Severino Perez
--- NOTE | 2024-04-12 09:52 | W.PN.HOSP.TC ---
Addendum entered and electronically signed by Ranjit Ulloa MD 04/12/24 12:33:
Seen and examined by me independently in collaboration with the medical service technician.
Lab data and imaging data reviewed.
Addendum as below :
Denies any abdominal pain. Tolerating diet.
Denies any shortness of breath or chest pain.
Chest clear.
Abdomen benign. Bilateral lower extremity edema as before noted.
CT of the abdomen and pelvis noted.
Partially obstructing rectal tumor with no obvious metastatic disease on the CT images. Colorectal surgery consulted who is requesting an MRI of the pelvis. Patient seems to be agreeable for surgery.
Echo showed EF in the mid range and he is clinically seems to have heart failure clinically. Continue with Lasix.Await cardiology input.
Hyponatremia in setting of hypervolemia-cw FR and Lasix and follow.Check TSH/Cortisol.
DW Cards DIRECTOR SEMICONDUCTOR
Total time spent on today's encounter was 52 minutes which included time spent in counseling the patient/family regarding diagnosis and treatment plan as listed above, goals of care, and symptom management. Case was discussed with nursing staff,
specialists, and care coordinators/case management. All labs and imaging personally reviewed by me. Remainder the time spent in detailed review of previous records, lab data, imaging, and other medical provider documentation.
Original Note:
Today's Communication/Plan
-
Colorectal/Cardiology to see. Additional imaging ordered per Colorectal. C/w IV iron.
Assessment / Plan
Assessment / Plan
78 year old man
#Melena
#unintentional Weight loss
#New onset Anemia
#Rectal Mass, likely adenocarcinoma.
- Rectal mass palpable on physical exam.
- GI rec IP EGD/colonoscopy, but patient declined; would prefer OP. Recommending CT scan abdomen w/ IV/Oral prior to discharge if he refuses EGD/Colonscopy.
- Flex sig demonstrating near complete occlusion due to rectal mass, had difficulty passing scope. Biopsies taken, pending.
High suspicion for adenocarcinoma. Follow up CT demonstrating mass with no clear evidence of local mets.
MRI pelvis w/ & w/o ordered
Colorectal surgery consulted. Cardiology consulted.
#Pulmonary Ground Glass Nodule
- Incidental finding on CT scan measuring 4mm.
#Anemia, likely multifactorial (Acute Blood Loss/Iron Deficiency)
- Hgb 7.7 on admission, s/p 1U PRBC with improvement to 8.4.
- Iron studies show low iron, low saturation, low ferritin
- PO & IV iron replacement
- Hgb 8.4 today.
- C/w IV Iron
#Acute Exacerbation of HFmrEF
- elevated ProBNP, R pleural effusion, complains of chronic cough with occasional clear/yellow sputum
- C/w Lasix 20mg IV.
- Echo EF 40-45%
#Small Left Pleural Effusion - saturations >88%. No shortness of breath.
#Hyponatremia, possible SIADH
- 128 on admission with high urine sodium and high urine osmolality. Improved to 132 this morning w/o fluids.
- Given concern for rectal mass, malignant cause of SIADH is a serious consideration
- Fluid restriction 40oz
#NIDDM - hold glipizide, c/w metformin. LDISS
#Hypercholesterolemia - c/w simvastatin
#Dementia - c/w donepezil
Diet: 2000 Calorie Diabetic, 40oz fluid restriction
DVT PPx: SCDs
Code Status: Full Code
Anticipated Discharge: > 48 hours
Subjective/Interval History
-
He had a few bloody bowel movements last night. Feeling slightly weak today. No new fevers, chills, shortness of breath, palpitations, chest pain. No abdominal pain.
Objective Data
-
Labs:
Laboratory Results
04/12/24
06:55
WBC 7.0
Hgb 8.4 L
Hct 25.9 L
Plt Count 320
Sodium 129 L
Potassium 4.2
Chloride 103
Carbon Dioxide 24
BUN 36 H
Creatinine 0.9
Glucose 159 H
Calcium 8.7
Vital Signs:
Vital Signs
Temp Pulse Resp BP Pulse Ox
97.9 F 76 20 123/58 96
04/12/24 07:45 04/12/24 07:45 04/12/24 07:45 04/12/24 07:45 04/12/24 07:45
I&O
04/11/24 04/12/24 04/13/24
06:59 06:59 06:59
Intake Total 1070 / 1070 240 / 240
Output Total 1325 / 1325 725 / 725
Balance -255 / -255 -485 / -485
Review of Systems
-
History Source: Patient
Constitutional: Denies Fever or Chills
Respiratory: Denies Cough or Trouble Breathing
Cardiac: Denies Chest Pain, Diaphoresis, Palpitations or Syncope
Abdomen/GI: Reports Bloody Stools; Denies Abdominal Pain, Nausea, Vomiting, Diarrhea or Constipated
Breast: Reports N/A
Genitourinary: Denies Dysuria or Flank Pain
Musculoskeletal: Denies Joint Pain, Joint Swelling or Muscle Pain
Skin: Denies Itching or Rash
Neuro: Denies Dizzy or Headache
Physical Exam
-
General: Well Developed, Well Nourished, No Apparent Distress and Comfortable
HEENT: Normocephalic, Atraumatic, Moist Mucous Membranes, Anicteric, Pavo Conjunctivae, PERRLA, Nose Appears Normal and Ears Appear Normal
Respiratory: Clear to Auscultation; Negative Wheezes, Rales or Rhonchi
Cardiac: Regular Rhythm and S1/S2; Negative Murmur or Rub
GI: Soft, Nontender, Nondistended and Normal Bowel Sounds
Rectal: Deferred by Provider
Musculoskeletal: No Clubbing, No Cyanosis and No Edema
Skin: Warm, Dry and IV Access / Catheter Site
Neuro: AO x 3
[2024-04-12] MEDS: MIRALAX 17 GRAMS PO (09:54)
[2024-04-12 10:56] LABS: CEA 2.31 ng/ml
--- NOTE | 2024-04-12 11:10 | CON.CAR ---
Addendum entered and electronically signed by Narciso Almanzar MD 04/12/24 14:15:
I saw and examined the patient.
The PHONE ENGINEER or PA's note was reviewed and I agree with the note.
Comment: General: Well developed, well nourished in NAD.
Neck: Supple, no JVD, HJR, carotids +2 B/L, no bruits bilaterally.
Heart: Non displaced PMI, RRR, no murmurs, No S3, S4, no rubs.
Lungs: Scattered rhonchi at the bases
Abdomen: Normal bowel sounds, soft, non-tender, non-distended.
Extremities: No clubbing, cyanosis or edema bilaterally.
Neuro: Grossly nonfocal, awake, alert and oriented x3.
Vamshi has a history of hypercholesterolemia and diabetes. He came to the ER for 1 month of lower GI bleeding and found to have a colon mass in the distal rectum. Also evidence of CHF based on elevated proBNP and pleural effusions noted on CAT
scan. Echocardiogram with ejection fraction of 40-45%. Will treat with IV Lasix. Will add Toprol. Consider adding EASTON inhibitor at some point. Also consider Farxiga versus Jardiance.
Original Note:
Consultation
Consultation Request
Date/Time Consultation Requested: 04/12/24
Date/Time Consultation Performed: 04/12/24
Requesting Provider: Dr. Ulloa
Performing Provider: Dr. Almanzar
Reason for Consultation: Acute HF, reduced EF on echo, preoperative cardiovascular risk stratificati
Medical History
-
History of Present Illness:
Patient came to [facility] on Tuesday after 1 month of lower GI bleeding because he had outpatient blood work that showed he was anemic, patient was admitted and cardiology is now consulted for acute heart failure and preoperative cardiovascular risk
stratification. Patient was not interested in participating with his [facility], so I called his daughter. Patient lives between his daughter's home and his son's home. Patient follows with a PCP and was seeing him for melanotic stools and occasional
brighter red blood in his stools that had been going on for about a month. He had blood work done as an outpatient that showed anemia and he was referred to the ER. In ER on Tuesday his initial Hgb was 7.7. Patient was given 1 unit PRBCs and
Hgb stable at 8.4 today. Patient was also seen in consultation by GI and had a flexible sigmoidoscopy performed on 04/11/2024 that showed a fungating partially obstructing large mass in the distal rectum that was circumferential and unable to be
passed with an endoscope, there was oozing present. Pathology is pending but this is suspected to be an adenocarcinoma and so colorectal surgery service was consulted. Patient is awaiting an MRI to better evaluate the area, but surgery is being
considered. Patient has been relatively inactive for the last month at least with SOB and ROSA, but he never has chest pain. He is able to climb up and down the stairs in his home at least once a day without chest pain. There is no previous stress
testing. Patient has a history of DM 2, but overall control unknown. There is no known history of HTN. He has a history of hyperlipidemia and is chronically on simvastatin 40 mg daily as an outpatient. Patient has no known previous diagnosis of
CHF, but proBNP was elevated at 2079 and appears he is in acute HF. Echo showed reduced EF of 40% which again is a new diagnosis for him.
PMH:
DM 2
Hyperlipidemia
Past Medical History
Past Medical History: Other (in HPI)
Past Surgical History: Appendectomy (as a child)
Social History
Tobacco: Former Smoker
Alcohol: Former
Drug: None
Living: With Family (lives with family and alternates between son's and daughter's home)
Family History
Family History: Other (no known FH of CAD)
Allergies / Home Medications
Allergy/AdvReac Type Severity Reaction Status Date / Time
No Known Allergies Allergy Verified 04/10/24 14:37
�Medication �Instructions �Recorded �Confirmed �Type
donepezil 10 mg tablet 10 mg PO HS Neurological Condition 04/10/24 04/10/24 History
glipizide 2.5 mg tablet, extended 2.5 mg PO DAILY Diabetes 04/10/24 04/10/24 History
release 24 hr
metformin 1,000 mg tablet 1,000 mg PO BID Diabetes 04/10/24 04/10/24 History
simvastatin 40 mg tablet 40 mg PO QPM High Cholesterol 04/10/24 04/10/24 History
Review of Systems
-
History Source: Patient and Family (son and daughter by phone)
All other systems: Negative unless noted
Physical Exam
Vital Signs
Temp Pulse Resp BP Pulse Ox
97.9 F 76 20 123/58 96
04/12/24 07:45 04/12/24 07:45 04/12/24 07:45 04/12/24 07:45 04/12/24 09:00
GEN: NAD. AAOx3, but does not want to participate in HPI, seems bothered
HEENT: EOMI, MMM
LUNGS: RA. CTA B/L, no wheezes or rales
CV: SR on tele. Reg, S1/S2, 1/6 syst LSB
ABD: soft, BS+, NT, ND
EXT: +1 B/L LE edema. No clubbing, cyanosis, or lesions B/L
NEURO: Gross non-focal
SKIN: No rash
Lab Results
04/12/24 06:55
04/12/24 06:55
Nrp-N-Wulornzuhbs Pept 2080 pg/ml 04/10/24 06:41
Impression / Plan
-
PCP: Dr. Vamshi Floyd
Cardiology: None
Impression:
Admitted with blood loss anemia and melanotic stools 04/09/24
Rectal mass suspicious for adenocarcinoma by flexible sigmoidoscopy 04/11/24
Acute HFrEF
B/L pleural effusions
Mild to mod MR
DM 2
Hyperlipidemia
Echo 04/10/2024: EF 40 to 45%, enlarged RV size with normal RV systolic function, mild to moderate MR, moderate TR with PAP 51 mmHg, normal pericardium without effusion
Plan:
-Patient came to [facility] on Tuesday after 1 month of lower GI bleeding because he had outpatient blood work that showed he was anemic, patient was admitted and cardiology is now consulted for acute heart failure and preoperative cardiovascular risk
stratification. Patient was not interested in participating with his [facility], so I called his daughter. Patient lives between his daughter's home and his son's home. Patient follows with a PCP and was seeing him for melanotic stools and occasional
brighter red blood in his stools that had been going on for about a month. He had blood work done as an outpatient that showed anemia and he was referred to the ER. In ER on Tuesday his initial Hgb was 7.7. Patient was given 1 unit PRBCs and
Hgb stable at 8.4 today. Patient was also seen in consultation by GI and had a flexible sigmoidoscopy performed on 04/11/2024 that showed a fungating partially obstructing large mass in the distal rectum that was circumferential and unable to be
passed with an endoscope, there was oozing present. Pathology is pending but this is suspected to be an adenocarcinoma and so colorectal surgery service was consulted. Patient is awaiting an MRI to better evaluate the area, but surgery is being
considered. Patient has been relatively inactive for the last month at least with SOB and ROSA, but he never has chest pain. He is able to climb up and down the stairs in his home at least once a day without chest pain. There is no previous stress
testing. Patient has a history of DM 2, but overall control unknown. There is no known history of HTN. He has a history of hyperlipidemia and is chronically on simvastatin 40 mg daily as an outpatient. Patient has no known previous diagnosis of
CHF, but proBNP was elevated at 2079 and appears he is in acute HF. Echo showed reduced EF of 40% which again is a new diagnosis for him.
-ECG reviewed by me looks like SR with PACs. No acute ST changes.
-Will add patient to telemetry given acute HF
-Recommend Lasix 40 mg IV daily. Patient was not taking a diuretic prior to admission.
-No obvious WMA on echo and chronicity of CM is unknown. No chest pain. No obvious ischemic changes on ECG.
-Will add Toprol-XL 25 mg daily starting now
-Pending BP and Cre responses to diuresis can consider adding low-dose EASTON/ARB
-Will wait to add SGLT2 with possible upcoming colorectal surgery.
-Circumferential, fungating mass on flex sig that is concerning for adenocarcinoma. MRI pending for today. Surgery being considered.
-Hgb as low as 7.7 on admission, improved and stable at 8.4 following 1 unit PRBC this admission.
-He can walk up and down a flight of stairs without chest pain, but has ROSA. No unstable symptoms, likely high, but not prohibitive risk for surgery.
-Changed diet to 2 gram sodium restriction and 64 oz fluid restriction
-Called and talked to patient's son and daughter for 18 min today. Updated them as best as I could on all aspects of admission and asked questions to help with HPI.
[2024-04-12 12:58] LABS: Glucose - Point of Care 248 mg/dl (70-99)
[2024-04-12] MEDS: NOVOLOG FLEXPEN-LOW RESISTANCE 2 UNITS SC ×2 (13:01→18:34)
[2024-04-12] MEDS: ROBITUSSIN DM 5 ML PO (13:37)
[2024-04-12] MEDS: LASIX 40 MG IV (14:27)
[2024-04-12] MEDS: TOPROL XL 25 MG PO (14:28)
[2024-04-12] MEDS: FERRLECIT 110 MG IV (14:28)
[2024-04-12 15:30] VITALS: BP 128/55
[2024-04-12 17:04] LABS: Glucose - Point of Care 213 mg/dl (70-99)
[2024-04-12] MEDS: LIPITOR 20 MG PO (18:36)
[2024-04-12] MEDS: ARICEPT 10 MG PO (21:10)
[2024-04-12] MEDS: MELATONIN 10 MG PO (21:10)
[2024-04-12 21:13] LABS: Glucose - Point of Care 250 mg/dl (70-99)
[2024-04-12 23:29] VITALS: BP 141/61
[2024-04-13] VITALS (7 sets, daily range): BP systolic 111–158; BP diastolic 54–87; PULSE 61–82; BMI 22.8
--- NOTE | 2024-04-13 05:24 | PTCARENOTE ---
PT to and from MRI. Pt with 3 episodes of inc of gelatinous bloody stools. Tari care provided, barrier ointment applied. Sacral foam applied to sacrum. Vital signs stable WIll continue to monitor.
[2024-04-13] MEDS: TYLENOL 650 MG PO (06:25)
[2024-04-13 07:00] LABS: Hematocrit 24.8 % (39.0-52.0); Hemoglobin 8.1 g/dL (13.0-18.0); Mean Corp Hgb Conc. 32.7 g/dL (33.0-37.0); Mean Corpuscular Hgb 26.9 pg (27.0-31.0); Mean Corpuscular Volume 82.4 fL (80.0-94.0); Mean Platelet Volume 9.2 fL (7.4-10.4); Platelet Count 302 10^3/uL (130-400); Red Blood Cell Count 3.01 10^6/uL (4.70-6.10); Red Cell Dist. Width 17.9 % (11.5-14.5); White Blood Cell Count 6.1 10^3/uL (4.8-10.8)
[2024-04-13 07:22] LABS: Glucose - Point of Care 305 mg/dl (70-99)
[2024-04-13 07:36] LABS: Blood Urea Nitrogen 27 mg/dl (9-20); Calcium 8.2 mg/dl (8.4-10.2); Carbon Dioxide 27 mmol/L (22-30); Chloride 97 mmol/L (98-107); Estimated Creatinine Clearance 59 ml/min; Glucose 259 mg/dl (70-99); Potassium 3.9 mmol/L (3.5-5.1); Sodium 127 mmol/L (135-145); eGFR > 60.00
[2024-04-13] MEDS: NOVOLOG FLEXPEN-LOW RESISTANCE 4 UNITS SC (08:02)
[2024-04-13 08:05] LABS: Cortisol, Random 14.2 ug/dl
[2024-04-13] MEDS: LASIX 40 MG IV (08:10)
[2024-04-13] MEDS: NSS (PRESERVATIVE FREE) 10 ML IV (08:10)
[2024-04-13] MEDS: MIRALAX PO (08:10)
[2024-04-13] MEDS: FLUSH (NSS) 2 FLUSH IV (08:10)
[2024-04-13] MEDS: PROTONIX IV 40 MG IV (08:11)
[2024-04-13] MEDS: TOPROL XL 25 MG PO (08:11)
--- NOTE | 2024-04-13 08:44 | W.PN.HOSP.TC ---
Addendum entered and electronically signed by Ranjit Ulloa MD 04/13/24 15:19:
Seen and examined by me independently in collaboration with the medical anthropology director.
Lab data and imaging data reviewed.
Addendum as below :
Patient tolerating diet currently.
Improving weight and lower extremity edema. Remains on room air. Denies shortness of breath.
MRI of the pelvis done and pending.
Colorectal surgery following
Consulted medical oncology.
Continue with IV diuresis per cardiology.
Original Note:
Today's Communication/Plan
-
C/w Lasix, oncology/colorectal following. nephro consult for hyponatremia. Set up for out patient management of colorectal cancer and probable neoadjuvant therapy
Assessment / Plan
Assessment / Plan
78 year old man
#Melena/Unintentional Weight loss/Anemia
#Rectal Mass, likely adenocarcinoma
- Rectal mass palpable on physical exam.
- GI rec IP EGD/colonoscopy, but patient declined; would prefer OP. Recommending CT scan abdomen w/ IV/Oral prior to discharge if he refuses EGD/Colonscopy.
- Flex sig demonstrating near complete occlusion due to rectal mass, had difficulty passing scope. Biopsies taken, pending.
High suspicion for adenocarcinoma. Follow up CT demonstrating mass with no clear evidence of local mets.
MRI pelvis w/ & w/o ordered
Colorectal surgery consulted. Cardiology consulted for surgical clearance if warranted.
Oncology consulted - rec neoadjuvant chemoradiation to downstage prior to surgery, will organize as outpatient.
#Pulmonary Ground Glass Nodule
- Incidental finding on CT scan measuring 4mm. Subcentimeter nodule OK; follow up as OP.
#Anemia, likely multifactorial (Acute Blood Loss/Iron Deficiency)
- Hgb 7.7 on admission, s/p 1U PRBC with improvement to 8.4.
- Iron studies show low iron, low saturation, low ferritin
- s/p PO & IV iron replacement
- Hgb stable today, transfuse if <7
#Acute Exacerbation of HFmrEF
- elevated ProBNP, R pleural effusion, complains of chronic cough with occasional clear/yellow sputum
- C/w Lasix 20mg IV.
- Echo EF 40-45%
#Small Left Pleural Effusion - saturations >88%. No shortness of breath.
#Hyponatremia, hypervolemic possibly secondary to SIADH vs. Cardiorenal
- 128 on admission with high urine sodium and high urine osmolality. Improved to 132 this morning w/o fluids.
- Given concern for rectal mass, malignant cause of SIADH is a serious consideration
- Fluid restriction 40oz
- Consult nephro for possible Samsca given persistent hyponatremia in the setting of probable cardio-renal pathology/ hypervolemic hyponatremia.
#NIDDM - hold glipizide, c/w metformin. LDISS.
CM to ellis out Jardiance for possible GDMT as outpatient.
#Hypercholesterolemia - c/w simvastatin
#Dementia - c/w donepezil
Diet: 2000 Calorie Diabetic, 40oz fluid restriction
DVT PPx: SCDs
Code Status: Full Code
Anticipated Discharge: > 48 hours
Subjective/Interval History
-
Still feeling weak this morning. Has had bowel movements which are bloody, but painless.
No new fevers, chills, abdominal pain, aches, chest pain, palpitations.
Objective Data
-
Labs:
Laboratory Results
04/13/24
06:43
WBC 6.1
Hgb 8.1 L
Hct 24.8 L
Plt Count 302
Sodium 127 L
Potassium 3.9
Chloride 97 L
Carbon Dioxide 27
BUN 27 H
Creatinine 0.9
Glucose 259 H
Calcium 8.2 L
Vital Signs:
Vital Signs
Temp Pulse Resp BP Pulse Ox
97.7 F 66 18 124/56 98
04/13/24 07:00 04/13/24 07:00 04/13/24 07:00 04/13/24 07:00 04/13/24 07:00
I&O
04/12/24 04/13/24 04/14/24
06:59 06:59 06:59
Intake Total 240 / 240 110 / 110
Output Total 725 / 725 500 / 500
Balance -485 / -485 -390 / -390
Review of Systems
-
History Source: Patient
Constitutional: Denies Fever, Night Sweats or Chills
EENT: Denies Sore Throat
Respiratory: Denies Cough, Hemoptysis, Trouble Breathing, Wheezing or Pleurisy
Cardiac: Denies Chest Pain, Diaphoresis, Palpitations or Syncope
Abdomen/GI: Reports Bloody Stools; Denies Abdominal Pain, Nausea, Vomiting or Diarrhea
Genitourinary: Denies Dysuria or Frequency
Musculoskeletal: Denies Joint Pain, Joint Swelling or Muscle Pain
Neuro: Denies Dizzy or Headache
Physical Exam
-
General: Well Developed, Well Nourished, No Apparent Distress and Comfortable
HEENT: Normocephalic, Atraumatic, Moist Mucous Membranes, [place] Conjunctivae and PERRLA
Respiratory: Clear to Auscultation; Negative Wheezes, Rales or Rhonchi
Cardiac: Regular Rhythm and S1/S2; Negative Murmur
GI: Soft, Nontender, Nondistended and Normal Bowel Sounds
Musculoskeletal: No Clubbing, No Cyanosis, Edema, Right Lower Extrem and Edema, Left Lower Extrem
Skin: Warm, Dry and IV Access / Catheter Site
Neuro: AO x 3
--- NOTE | 2024-04-13 10:00 | W.CON.NEPH ---
Consultation
-
Date/Time Consultation Requested: 04/13/2024 9:45 AM
Date/Time Consultation Performed: 04/13/2024 10:00 AM
Requesting Provider: Dr. Ulloa
Performing Provider: Dr. Mcdermott
Reason for Consultation: Hyponatremia
Medical History
-
Chief Complaint: Hyponatremia
History of Present Illness:
The patient is an 78-year-old male with a past medical history of dementia maintained on benazepril. He has a history of diabetes for which she is maintained on glipizide and metformin. He is maintained on statin therapy for dyslipidemia.The
patient came to [facility] on Tuesday after 1 month of lower GI bleeding because he had outpatient blood work that showed he was anemic, patient was admitted Patient follows with a PCP and was seeing him for melanotic stools and occasional brighter red
blood in his stools that had been going on for about a month. He had blood work done as an outpatient that showed anemia and he was referred to the ER. In [facility] ER on Tuesday his initial Hgb was 7.7. Patient was given 1 unit PRBCs . Patient was
also seen in consultation by GI and had a flexible sigmoidoscopy performed on 04/11/2024 that showed a fungating partially obstructing large mass in the distal rectum that was circumferential and unable to be passed with an endoscope, there was oozing
present. Pathology is pending but this is suspected to be an adenocarcinoma and so colorectal surgery service was consulted. Patient is awaiting an MRI to better evaluate the area, but surgery is being considered. Patient has been relatively
inactive for the last month at least with SOB and RSOA, but he never has chest pain. He is able to climb up and down the stairs in his home at least once a day without chest pain. Patient has no known previous diagnosis of CHF, but proBNP was
elevated at 2079 and appears he is in acute HF. Echo showed reduced EF of 40% which again is a new diagnosis for him. Further workup for possible GI bleeding included a CAT scan which revealed a 5 cm soft tissue density mass in the rectum. The
patient was placed on 40 mg of IV Lasix for discomfort and stated congestive heart failure. Nephrology was consulted for persistent hyponatremia with serum sodium of 127.
Past Medical History
Diabetes
Dyslipidemia
Dementia
Social History
Tobacco: Former Smoker
Alcohol: Former
Family History
Family History: Not Pertinent
Allergies / Home Medications
Allergy/AdvReac Type Severity Reaction Status Date / Time
No Known Allergies Allergy Verified 04/10/24 14:37
�Medication �Instructions �Recorded �Confirmed �Type
donepezil 10 mg tablet 10 mg PO HS Neurological Condition 04/10/24 04/10/24 History
glipizide 2.5 mg tablet, extended 2.5 mg PO DAILY Diabetes 04/10/24 04/10/24 History
release 24 hr
metformin 1,000 mg tablet 1,000 mg PO BID Diabetes 04/10/24 04/10/24 History
simvastatin 40 mg tablet 40 mg PO QPM High Cholesterol 04/10/24 04/10/24 History
Review of Systems
-
History Source: Patient
All other systems: Negative unless noted
Constitutional: Fatigue
Respiratory: Trouble Breathing
Physical Exam
Vital Signs
Vital Signs
Temp Pulse Resp BP Pulse Ox
97.7 F 66 18 124/56 98
04/13/24 07:00 04/13/24 07:00 04/13/24 07:00 04/13/24 07:00 04/13/24 07:00
Lab Results
04/13/24 06:43
04/13/24 06:43
WBC 6.1 10^3/uL (4.8-10.8) 04/13/24 06:43
RBC 3.01 10^6/uL (4.70-6.10) L 04/13/24 06:43
Hgb 8.1 g/dL (13.0-18.0) L 04/13/24 06:43
Hct 24.8 % (39.0-52.0) L 04/13/24 06:43
Plt Count 302 10^3/uL (130-400) 04/13/24 06:43
Sodium 127 mmol/L (135-145) L 04/13/24 06:43
Potassium 3.9 mmol/L (3.5-5.1) 04/13/24 06:43
Chloride 97 mmol/L (98-107) L 04/13/24 06:43
Carbon Dioxide 27 mmol/L (22-30) 04/13/24 06:43
BUN 27 mg/dl (9-20) H 04/13/24 06:43
Creatinine 0.9 mg/dL (0.7-1.3) 04/13/24 06:43
eGFR > 60.00 04/13/24 06:43
Glucose 259 mg/dl (70-99) H 04/13/24 06:43
Calcium 8.2 mg/dl (8.4-10.2) L 04/13/24 06:43
Rsw-B-Cfrtxatbeuw Pept 2080 pg/ml 04/10/24 06:41
Albumin 3.1 g/dl (3.5-5.0) L 04/09/24 17:23
Physical Exam
General: AOx2, Nontoxic , NAD
HEENT: PERRL, EOMI, Anicteric, Conjunctivae pale, Ear/Nose Intact, Hearing Normal, Oropharynx Clear/Moist, Dentition Intact, Facial Symmetry, Neck Supple, Neck: Trachea Midline, No JVD and No Thyromegaly, no Bruits
Respiratory: Coarse bilaterally with decreased breath sounds towards the bases with normal lung excursion
Cardiac: S1/S2 and Regular Rate/Rhythm
Breast: Deferred by me
Abdomen: Soft, Nontender, Nondistended, Normal Bowel Sounds and No Hepatosplenomegaly
Rectal: Deferred by Provider
Genito-urinary: No Costovertebral Tenderness
Extremities: No Clubbing, No Cyanosis and No Edema
Skin: No Rash or open lesions
Neuro: Nonfocal/Grossly Intact, CN II-XII (Intact) and Strength (Musculoskeletal exam 5 out of 5 both upper and lower extremities)
Hematologic/Lymphatic: No Cervical Lymphadenopathy, No Submandibular Lymphadenopathy and No Supraclavicular Lymphadenopathy
Psych: Mood/afflect pleasant
Vascular: plus 2 pedal and radial pulses
Data Reviewed
-
Radiology: Image Personally Visualized and interpreted (Chest x-ray on admission personally reviewed: Interstitial edema bilateral)
CT Scan: Report Reviewed by me (Abdomen and pelvis: No hydronephrosis noted 5 cm soft tissue density mass in the rectum)
Medical Tests (Nuc Med, Echo etc): Other (EKG report reveals sinus rhythm with PACs at 77bpm)
Labs: Labs Reviewed by me (BMP CBC)
Assessment/Plan
-
Impression:
Hyponatremia: (hypervolemic)
Rectal mass new diagnosis/GI bleed
Anemia
New diagnosis of congestive heart failure with exacerbation
Diabetes
Hyperlipidemia
Dementia
Plan:
Hyponatremia:
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
-Check urine osmolality, adjust fluid restriction down from 64 to 48 ounces
-Maintain 40 mg IV Lasix
-Accurate I's and O's and daily weights
-If fluid restriction and IV Lasix for now I will consider low dose Samsca however this will not aid long-term in the management of his hyponatremia so I would like to try what we can use as an outpatient first
[2024-04-13 11:16] LABS: Osmolality Urine 417 mOsm/kg (300-900)
--- NOTE | 2024-04-13 11:24 | W.PN.CRS1 ---
Today's Communication / Plan
-
Await MRI read
hematology oncology cs
Radiation oncology cs
Repeat H&H at noon
Assessment/Plan
-
Assessment: 78-year-old male presented to the ER with intermittent bleeding, weakness, and weight loss, found with anemia status post 1 unit packed red blood cells and rectal mass on sigmoidoscopy
Plan:
-Discussed studies at length with the patient. Given he is able to eat and continue to pass stool, there is no need for urgent colostomy diversion. However we did discuss should things change and he obstruct, he would require surgery.
-MRI pelvis with rectal cancer protocol performed yesterday - read pending
-Stool softener MiraLAX daily
-CEA = 2.31
-Raissa Ulrich, our rectal cancer nurse navigator, has been notified of his case
-Will need eventual chemo and radiation. The patient is interested in pursuing full treatment at this time. Will consult med onc and rad onc.
-Dr. Figueroa had an extensive discussion with his son and daughter yesterday regarding his care
-Pathology from colonoscopy pending
-Given drop in hemoglobin from 8.4 to 8.1, will repeat an H&H at noon
Subjective Data
Subjective Data
Date of Service: April 13, 2024
Patient has had 4 burgundy stools overnight. He denies nausea. He denies vomiting. He is not in any pain. He has been tolerating a diet.
Objective Data
-
Vital Signs
Temp Pulse Resp BP Pulse Ox
97.7 F 66 18 124/56 98
04/13/24 07:00 04/13/24 07:00 04/13/24 07:00 04/13/24 07:00 04/13/24 07:00
Intake & Output
04/12/24 04/13/24 04/14/24
06:59 06:59 06:59
Intake Total 240 / 240 110 / 110
Output Total 725 / 725 500 / 500
Balance -485 / -485 -390 / -390
Intake:
Oral fluids 240 / 240
IV piggybacks 110 / 110
Output:
Urine, Voided 725 / 725 500 / 500
Other:
How many times incontinent 1
MODERATE amount urine
How many times incontinent 1 2
SATURATED amount urine
Lab Results
04/13/24 06:43
04/13/24 06:43
Physical Exam
-
General: No Acute Distress and AOx3
Abdomen: Soft, Non Distended and Non Tender
Skin: Warm and Dry
--- NOTE | 2024-04-13 11:37 | W.PN.CARDCBS ---
Addendum entered and electronically signed by Dangelo Henao MD 04/13/24 15:21:
I saw and examined the patient.
The Entry Tech's note was reviewed and I agree with the note.
Comment: Briefly, 78-year-old man presenting with GI bleed and anemia found to have rectal CA
Patient was also noted to have lower extremity edema on physical exam with elevated proBNP
Subsequent transthoracic echocardiogram revealed mildly reduced LVEF 40 to 45% which is a new diagnosis
With IV diuresis his volume status has improved�plan to switch to p.o. Lasix 40 mg daily tomorrow
With new cardiomyopathy he was started on metoprolol 25 mg daily and losartan 25 mg daily
Would defer any further workup of cardiomyopathy to the outpatient setting
Stable cardiac status, we will sign off
Outpatient follow-up has been arranged
Cardiac meds on discharge:
Lasix p.o. 40 mg daily
Metoprolol succinate 25 mg p.o. daily
Losartan 25 mg p.o. daily
Original Note:
Today's Communication / Plan
-
Continue gentle IV diuresis with Lasix
Replete potassium
Add low-dose losartan 25 mg
Fluid restriction of 48 ounces due to hyponatremia
Continue to monitor hemoglobin and sodium levels
Impression / Plan
-
PCP: Dr. Vamshi Floyd
Cardiology: None, initial consult Dr. Almanzar
Impression:
Admitted with blood loss anemia and melanotic stools 04/09/24
Rectal mass suspicious for adenocarcinoma by flexible sigmoidoscopy 04/11/24
Acute HFrEF
B/L pleural effusions
Mild to mod MR
DM 2
Hyperlipidemia
Echo 04/10/2024: EF 40 to 45%, enlarged RV size with normal RV systolic function, mild to moderate MR, moderate TR with PAP 51 mmHg, normal pericardium without effusion
Plan:
-Presented 04/09/2024 with intermittent bleeding, weakness, and weight loss, found with anemia status post 1 unit packed red blood cells and rectal mass on sigmoidoscopy
-Circumferential, fungating mass on flex sig that is concerning for adenocarcinoma, biopsy pending. Per colorectal surgery will needed eventual surgery but urgently at this time. Pelvic MRI demonstrated patient is a clinical T3 N0 M0, no sphincter
involvement and no suspicious extremities or rectal lymph nodes on MRI. Heme/onc and radiation oncology consulted.
-ECG SR with PACs. No acute ST changes and no events noted on tele
-Cardiomyopathy with EF 40-45% on echo. Unknown etiology. He can walk up and down a flight of stairs without chest pain, but has ROSA. No unstable symptoms, likely high, but not prohibitive risk for surgery. Will need eventual outpt ischemic eval
with lexiscan stress test.
-GDMT - new to Toprol this admission. Add low dose Losartan 25 mg. Would hold on SGLT2 inhibitor given possible rectal surgery and risk of GI/ infection.
-Continue gentle diuresis with Lasix 40 mg IV daily. Patient was not taking a diuretic prior to admission.
-Potassium 3.9. Will replete with ongoing diuresis
-Hyponatremia, sodium now 127. Nephrology has been consulted. [place] to be likely due to elevated ADH in the setting of congestive heart failure exacerbation, and possible SIADH related to underlying colon malignancy. Check urine osmolality, reduce
fluid to 48 ounces. If no improvement consider Samsca
-Hgb as low as 7.7 on admission, improved to 8.4 following 1 unit PRBC this admission. Currently 8.1. Repeat pending this afternoon. Continue to monitor and trend
-Changed diet to 2 gram sodium restriction and 48 oz fluid restriction due to ongoing hyponatremia.
HPI 04/12/2024:
-Patient came to [facility] on Tuesday after 1 month of lower GI bleeding because he had outpatient blood work that showed he was anemic, patient was admitted and cardiology is now consulted for acute heart failure and preoperative cardiovascular risk
stratification. Patient was not interested in participating with his HPI, so I called his daughter. Patient lives between his daughter's home and his son's home. Patient follows with a PCP and was seeing him for melanotic stools and occasional
brighter red blood in his stools that had been going on for about a month. He had blood work done as an outpatient that showed anemia and he was referred to the ER. In [facility] ER on Tuesday his initial Hgb was 7.7. Patient was given 1 unit PRBCs and
Hgb stable at 8.4 today. Patient was also seen in consultation by GI and had a flexible sigmoidoscopy performed on 04/11/2024 that showed a fungating partially obstructing large mass in the distal rectum that was circumferential and unable to be
passed with an endoscope, there was oozing present. Pathology is pending but this is suspected to be an adenocarcinoma and so colorectal surgery service was consulted. Patient is awaiting an MRI to better evaluate the area, but surgery is being
considered. Patient has been relatively inactive for the last month at least with SOB and ROSA, but he never has chest pain. He is able to climb up and down the stairs in his home at least once a day without chest pain. There is no previous stress
testing. Patient has a history of DM 2, but overall control unknown. There is no known history of HTN. He has a history of hyperlipidemia and is chronically on simvastatin 40 mg daily as an outpatient. Patient has no known previous diagnosis of
CHF, but proBNP was elevated at 2079 and appears he is in acute HF. Echo showed reduced EF of 40% which again is a new diagnosis for him.
Progress Note - National Business Director
Subjective
Date of Service: April 13, 2024
Patient seen and examined. Patient lying comfortably in chair. Offers no cardiac complaints
Objective
Labs:
04/13/24 06:43
Labs
Hgb 8.1 g/dL (13.0-18.0) L 04/13/24 06:43
Hct 24.8 % (39.0-52.0) L 04/13/24 06:43
Plt Count 302 10^3/uL (130-400) 04/13/24 06:43
Sodium 127 mmol/L (135-145) L 04/13/24 06:43
Potassium 3.9 mmol/L (3.5-5.1) 04/13/24 06:43
BUN 27 mg/dl (9-20) H 04/13/24 06:43
Creatinine 0.9 mg/dL (0.7-1.3) 04/13/24 06:43
Glucose 259 mg/dl (70-99) H 04/13/24 06:43
Vital Signs and I&O:
Vital Signs
Temp Pulse Resp BP Pulse Ox
97.7 F 66 18 124/56 98
04/13/24 07:00 04/13/24 07:00 04/13/24 07:00 04/13/24 07:00 04/13/24 07:00
Vital Signs
Temp Pulse Resp BP Pulse Ox
97.7 F 66 18 124/56 98
04/13/24 07:00 04/13/24 07:00 04/13/24 07:00 04/13/24 07:00 04/13/24 07:00
Intake & Output
04/11/24 04/12/24 04/13/24 04/14/24
06:59 06:59 06:59 06:59
Intake Total 1070 / 1070 240 / 240 110 / 110
Output Total 1325 / 1325 725 / 725 500 / 500
Balance -255 / -255 -485 / -485 -390 / -390
Physical Exam
Physical Exam
GEN: No distress, awake, Ox3, sitting in chair
HEENT: supple, anicteric, mmm
LUNGS: CTA, no wheezes/rales
CV: Reg, S1/S2, 1/6 syst murmur at apex
ABD: soft, BS+, NT/ND
EXT: No edema, clubbing or cyanosis
NEURO: Gross non-focal
SKIN: No rash, warm, dry
--- NOTE | 2024-04-13 12:05 | CON.ONC ---
Documented by User: Kvng Hope DO, Resident 04/13/24 12:26
Impression
Impression
Flex sigmoidoscopy performed at [place] demonstrated a fungating partially obstructing large mass in the distal rectum. Biopsies were performed, results currently pending
Underwent CT chest abdomen pelvis which was negative for any obvious metastatic disease
Pelvic MRI recently completed for staging purposes
Pelvic MRI demonstrated patient is a clinical T3 N0 M0, no sphincter involvement and no suspicious extremities or rectal lymph nodes on MRI
Consistent with locally advanced rectal cancer
Labs demonstrate iron deficiency anemia, likely secondary to GI bleeding
Plan
Plan
#Locally advanced rectal carcinoma
Flex sig demonstrated large rectal mass partially occluding bowel
CT abdomen pelvis demonstrated no obvious metastatic disease
Pelvic MRI demonstrates patient is a clinical T3 N0 M0, findings consistent with locally advanced rectal carcinoma
Typical plan for locally advanced rectal carcinoma is neoadjuvant chemoradiation to downstage prior to surgery
Will arrange follow-up outpatient medical oncology follow-up
Will also arrange follow-up outpatient radiation oncology follow-up
Colorectal is following, recommendations appreciated. Recommend follow-up in their office once patient stable for discharge to discuss further surgical management
#Anemia
Ferritin 8.5, percent saturation 11
Labs are consistent with iron deficiency anemia likely secondary to GI bleeding
Recommend daily CBC to monitor hemoglobin
Recommend continuing iron infusion
Consideration for outpatient iron infusion in hematology office
Patient History
History of Present Illness
78-year-old male presents to emergency department for progressive fatigue and hemoglobin of 7.5 on outpatient labs. Patient reports he had never had a colonoscopy and endorses approximately 15 pound weight loss over the last 3 months. Patient
admitted to some intermittent rectal bleeding over the past couple months and underwent a sigmoidoscopy during his hospital stay. Sigmoidoscopy demonstrates a large mass in the distal rectum, biopsies were performed and CT chest abdomen pelvis did
not reveal any obvious metastatic disease. Pelvic MRI ordered for rectal cancer staging. As for now patient is stating he is not obstructed and is eating well with no issues.
Past-Medical/Surgical History
[id number] diabetes mellitus, appendectomy
Patient Medication
�Medication �Instructions �Recorded �Confirmed �Last Taken �Type
donepezil 10 mg tablet 10 mg PO HS Neurological Condition 04/10/24 04/10/24 04/08/24 22:00 History
glipizide 2.5 mg tablet, extended 2.5 mg PO DAILY Diabetes 04/10/24 04/10/24 04/09/24 07:30 History
release 24 hr
metformin 1,000 mg tablet 1,000 mg PO BID Diabetes 04/10/24 04/10/24 04/08/24 17:00 History
simvastatin 40 mg tablet 40 mg PO QPM High Cholesterol 04/10/24 04/10/24 Unknown History
Active Medications
Generic Name Dose Route Start Last Admin
Trade Name Freq PRN Reason Stop Dose Admin
Acetaminophen 650 mg 04/10/24 05:09 04/13/24 06:25
Acetaminophen 325 Mg Tablet PO 05/08/24 05:08 650 mg
Q4HPRN PRN Administration
mild pain/MOLINA/temp> 100.4F
Atorvastatin Calcium 20 mg 04/11/24 18:00 04/12/24 18:36
Atorvastatin (Lipitor) 20 Mg Tablet PO 05/09/24 17:59 20 mg
QPM DOMINIQUE Administration
Bisacodyl 10 mg 04/10/24 05:09
Bisacodyl 10 Mg Rectal Suppository RECTAL 05/08/24 05:08
[id number] PRN
constipation
Dextrose 12.5 grams 04/10/24 06:00
Dextrose 50% (0.5 Grams/Ml) 50 Ml Syringe IV 05/08/24 05:59
[id number] PRN
hypoglycemia
Protocol
Donepezil HCl 10 mg 04/11/24 22:00 04/12/24 21:10
Donepezil Hcl 10 Mg Tablet PO 05/09/24 21:59 10 mg
HS DOMINIQUE Administration
Furosemide 40 mg 04/12/24 14:00 04/13/24 08:10
Furosemide 40 Mg (10 Mg/Ml) 4 Ml Vial IV 05/10/24 13:59 40 mg
DAILY DOMINIQUE Administration
Glucagon 1 mg 04/10/24 06:00
Glucagon 1 Mg Vial IM 05/08/24 05:59
PRN PRN
hypoglycemia - no IV access
Protocol
Guaifenesin/Dextromethorphan 5 ml 04/12/24 13:18 04/12/24 13:37
Guaifenesin/Dextromethorphan 200 Mg/10 Ml Cup PO 05/10/24 13:17 5 ml
Q6HPRN PRN Administration
cough
Insulin Aspart 0 units 04/10/24 07:30 04/13/24 08:02
Insulin Aspart Low Resistance 300 Units/3 Ml Pen.Injctr SC 05/08/24 07:29 4 units
AC DOMINIQUE Administration
Protocol
Losartan Potassium 25 mg 04/13/24 12:00
Losartan 25 Mg Tablet PO 05/11/24 11:59
DAILY DOMINIQUE
Melatonin 10 mg 04/11/24 22:00 04/12/24 21:10
Melatonin 5 Mg Tablet PO 05/09/24 21:59 10 mg
HS DOMINIQUE Administration
Metformin HCl 1,000 mg 04/10/24 08:00 04/11/24 17:17
Metformin 1000 Mg Regular Release Tablet PO 05/08/24 07:59 1,000 mg
BID@0800,1700 DOMINIQUE Administration
Metoprolol Succinate 25 mg 04/12/24 14:00 04/13/24 08:11
Metoprolol 25 Mg Extended Release Tablet PO 05/10/24 13:59 25 mg
DAILY DOMINIQUE Administration
Ondansetron HCl 4 mg 04/10/24 05:09
Ondansetron 4 Mg/2 Ml Vial IV 05/08/24 05:08
Q6HPRN PRN
nausea and vomiting
Pantoprazole Sodium 40 mg 04/10/24 10:00 04/13/24 08:11
Pantoprazole Sodium 40 Mg/10 Ml Vial IV 05/08/24 09:59 40 mg
DAILY DOMINIQUE Administration
Polyethylene Glycol 17 grams 04/10/24 05:09
Polyethylene Glycol Powder 17 Grams Packet PO 05/08/24 05:08
DAILYPRN PRN
constipation
Polyethylene Glycol 17 grams 04/12/24 10:00 04/13/24 08:10
Polyethylene Glycol Powder 17 Grams Packet PO 05/10/24 09:59 Not Given
DAILY DOMINIQUE
Potassium Chloride 20 meq 04/13/24 12:03
Potassium Chloride 20 Meq Extended Release Tablet PO 04/13/24 12:04
NOW ONE
Senna/Docusate Sodium 1 tablet 04/10/24 05:09
Docusate W/Senna (Tari-Colace) Tablet PO 05/08/24 05:08
BIDPRN PRN
constipation
Sodium Chloride 0 flush 04/10/24 02:00 04/13/24 08:10
Sodium Chloride 0.9% (Flush) Syringe IV 05/08/24 01:59 2 flush
PER PROTOCOL DOMINIQUE Administration
Sodium Chloride 10 ml 04/10/24 10:00 04/13/24 08:10
Sodium Chloride 0.9% (Preservative Free) 10 Ml Vial IV 05/08/24 09:59 10 ml
DAILY DOMINIQUE Administration
Review of Systems
-
History Source: Patient
Constitutional: Reports Weight Loss (Proximate 15 pounds over 3 months) and Fatigue
Respiratory: Reports No Symptoms
Cardiac: Reports No Symptoms
GI: Reports Constipated and Bloody Stools
Physical Exam
-
General: Appears Chronically Ill
Psych: Calm and Intact Judgement/Insight
Labs
Lab Results
WBC 6.1 10^3/uL (4.8-10.8) 04/13/24 06:43
RBC 3.01 10^6/uL (4.70-6.10) L 04/13/24 06:43
Hgb 8.1 g/dL (13.0-18.0) L 04/13/24 06:43
Hct 24.8 % (39.0-52.0) L 04/13/24 06:43
MCV 82.4 fL (80.0-94.0) 04/13/24 06:43
MCH 26.9 pg (27.0-31.0) L 04/13/24 06:43
MCHC 32.7 g/dL (33.0-37.0) L 04/13/24 06:43
RDW 17.9 % (11.5-14.5) H 04/13/24 06:43
Plt Count 302 10^3/uL (130-400) 04/13/24 06:43
MPV 9.2 fL (7.4-10.4) 04/13/24 06:43
Abs Immat Gran (auto) 0.0 10^3/uL (0-0.05) 04/09/24 17:
Absolute Neuts (auto) 4.1 10^3/uL (1.4-6.5) 04/09/24 17:23
Absolute Lymphs (auto) 1.0 10^3/uL (1.2-3.4) L 04/09/24 17:23
Absolute Monos (auto) 0.8 10^3/uL (0.1-0.6) H 04/09/24 17:23
Absolute Eos (auto) 0.0 10^3/uL (0-0.7) 04/09/24 17:
Absolute Basos (auto) 0.0 10^3/uL (0-0.2) 04/09/24 17:
Immature Gran % 0.3 % (0-0.5) 04/09/24 17:23
Neutrophils % 69.9 % (42.2-75.2) 04/09/24 17:
Lymphocytes % 16.1 % (20.5-51.1) L 04/09/24 17:23
Monocytes % 13.2 % (1.7-9.3) H 04/09/24 17:23
Eosinophils % 0.3 % (0-6) 04/09/24 17:23
Basophils % 0.2 % (0-2) 04/09/24 17:23
Creatinine 0.9 mg/dL (0.7-1.3) 04/13/24 06:43
Vital Signs
Vital Signs
Temp Pulse Resp BP Pulse Ox
97.7 F 66 18 124/56 98
04/13/24 07:00 04/13/24 07:00 04/13/24 07:00 04/13/24 07:00 04/13/24 07:00

Documented by User: Narciso Monsalve MD 04/13/24 12:43
Plan
Plan
#Locally advanced rectal carcinoma
Flex sig demonstrated large rectal mass partially occluding bowel
CT abdomen pelvis demonstrated no obvious metastatic disease
Pelvic MRI demonstrates patient is a clinical T3 N0 M0, findings consistent with locally advanced rectal carcinoma
Typical plan for locally advanced rectal carcinoma is neoadjuvant chemoradiation to downstage prior to surgery
Will arrange follow-up outpatient medical oncology follow-up
Will also arrange follow-up outpatient radiation oncology follow-up
Colorectal is following, recommendations appreciated. Recommend follow-up in their office once patient stable for discharge to discuss further surgical management
#Anemia
Ferritin 8.5, percent saturation 11
Labs are consistent with iron deficiency anemia likely secondary to GI bleeding
Recommend daily CBC to monitor hemoglobin
Recommend continuing iron infusion
Consideration for outpatient iron infusion in hematology office
Oncology Addendum:
Patient seen and evaluated and agree w/ resident note and plan as outlined
-locally advanced rectal cancer - w/ partially obstructing mass in the distal rectum
-CT w/ no definitive evidence of metastatic disease
-MRI pelvis - demonstrating T3 lesion - 4.8cm from anal verge - N0 - no apparent suspicious lymph nodes
-discussed neoadjuvant approach w/ patient - tx w/ chemotherapy and XRT - prior to surgery
-will arrange outpt f/u for further discussion and treatment planning
-XRT has been consulted
-iron deficiency - anemia - Hb holding 8.6g/dl today
-can assist w/ additional iron repletion as outpt, as well
Will continue to folllow with you.
[2024-04-13 12:12] LABS: Hematocrit 26.4 % (39.0-52.0); Hemoglobin 8.6 g/dL (13.0-18.0)
[2024-04-13 12:20] LABS: Glucose - Point of Care 298 mg/dl (70-99)
[2024-04-13] MEDS: NOVOLOG FLEXPEN-LOW RESISTANCE 3 UNITS SC (13:01)
[2024-04-13] MEDS: COZAAR 25 MG PO (13:02)
[2024-04-13] MEDS: KCL 20 MEQ PO (13:02)
--- NOTE | 2024-04-13 13:56 | CM ---
Chart reviewed. Care ongoing at this time.
Plan: Home; no needs
[2024-04-13 14:23] LABS: Glycohemoglobin (HgbA1c) 7.3 % (4.0-5.6)
[2024-04-13 17:44] LABS: Glucose - Point of Care 165 mg/dl (70-99)
[2024-04-13] MEDS: NOVOLOG FLEXPEN-LOW RESISTANCE 1 UNITS SC (18:38)
[2024-04-13] MEDS: LIPITOR 20 MG PO (18:38)
[2024-04-13 21:15] LABS: Glucose - Point of Care 215 mg/dl (70-99)
[2024-04-13] MEDS: ARICEPT 10 MG PO (21:25)
[2024-04-13] MEDS: MELATONIN 10 MG PO (21:25)
[2024-04-14] VITALS (7 sets, daily range): BP systolic 114–138; BP diastolic 45–70; BMI 21.7
[2024-04-14 07:26] LABS: Glucose - Point of Care 193 mg/dl (70-99)
[2024-04-14 07:55] LABS: Hematocrit 26.5 % (39.0-52.0); Hemoglobin 8.6 g/dL (13.0-18.0); Mean Corp Hgb Conc. 32.5 g/dL (33.0-37.0); Mean Corpuscular Hgb 27.6 pg (27.0-31.0); Mean Corpuscular Volume 84.9 fL (80.0-94.0); Mean Platelet Volume 9.1 fL (7.4-10.4); Platelet Count 310 10^3/uL (130-400); Red Blood Cell Count 3.12 10^6/uL (4.70-6.10); Red Cell Dist. Width 18.4 % (11.5-14.5); White Blood Cell Count 5.3 10^3/uL (4.8-10.8)
[2024-04-14 08:25] LABS: Blood Urea Nitrogen 27 mg/dl (9-20); Calcium 8.4 mg/dl (8.4-10.2); Carbon Dioxide 30 mmol/L (22-30); Chloride 95 mmol/L (98-107); Estimated Creatinine Clearance 56 ml/min; Glucose 159 mg/dl (70-99); Potassium 3.8 mmol/L (3.5-5.1); Sodium 128 mmol/L (135-145); eGFR > 60.00
[2024-04-14] MEDS: NOVOLOG FLEXPEN-LOW RESISTANCE 1 UNITS SC (08:28)
[2024-04-14] MEDS: NSS (PRESERVATIVE FREE) 10 ML IV (08:30)
[2024-04-14] MEDS: LASIX 40 MG PO (08:30)
[2024-04-14] MEDS: PROTONIX IV 40 MG IV (08:30)
[2024-04-14] MEDS: TOPROL XL 25 MG PO (08:31)
[2024-04-14] MEDS: MIRALAX PO (08:32)
[2024-04-14] MEDS: COZAAR 25 MG PO (08:50)
--- NOTE | 2024-04-14 09:59 | W.PN.NEPH.PH ---
Today's Communication / Plan
-
maintain lasix and FR
Follow-up BMP
Assessment/Plan
-
Impression:
Hyponatremia: (hypervolemic)
Rectal mass new diagnosis/GI bleed
Anemia
New diagnosis of congestive heart failure with exacerbation
Diabetes
Hyperlipidemia
Dementia
Plan:
Hyponatremia:
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
-Check urine osmolality, adjust fluid restriction 48 ounces, sodium up to 128
-Maintain 40 mg po Lasix daily weights down, losartan added by cardiology for cardiomyopathy
-Accurate I's and O's and daily weights
-If fluid restriction and Lasix for now are not effect I will consider low dose Samsca however this will not aid long-term in the management of his hyponatremia so I would like to try what we can use as an outpatient first
-
-
Date of Service: April 14, 2024
CC / HPI / ROS
-
Chief Complaint:
Hyponatremia
History of Present Illness:
Serum sodium up to 128 on fluid restriction and oral Lasix
Hemodynamically stay
Review of Systems:
Nonoliguric
Weights down
Labs
-
Labs:
WBC 5.3 10^3/uL (4.8-10.8) 04/14/24 07:32
RBC 3.12 10^6/uL (4.70-6.10) L 04/14/24 07:32
Hgb 8.6 g/dL (13.0-18.0) L 04/14/24 07:32
Hct 26.5 % (39.0-52.0) L 04/14/24 07:32
Plt Count 310 10^3/uL (130-400) 04/14/24 07:32
Sodium 128 mmol/L (135-145) L 04/14/24 07:32
Potassium 3.8 mmol/L (3.5-5.1) 04/14/24 07:32
Chloride 95 mmol/L (98-107) L 04/14/24 07:32
Carbon Dioxide 30 mmol/L (22-30) 04/14/24 07:32
BUN 27 mg/dl (9-20) H 04/14/24 07:32
Creatinine 0.9 mg/dL (0.7-1.3) 04/14/24 07:32
eGFR > 60.00 04/14/24 07:32
Glucose 159 mg/dl (70-99) H 04/14/24 07:32
Calcium 8.4 mg/dl (8.4-10.2) 04/14/24 07:32
Kdi-R-Bjuyvauuroc Pept 2080 pg/ml 04/10/24 06:41
Albumin 3.1 g/dl (3.5-5.0) L 04/09/24 17:23
Physical Exam
-
Vital Signs:
Vital Signs
Temp Pulse Resp BP Pulse Ox
97.9 F 70 16 137/70 97
04/14/24 07:40 04/14/24 08:30 04/14/24 07:40 04/14/24 08:30 04/14/24 07:40
Cardiovascular:: Regular rate and rhythm
Respiratory:: Bilateral: Coarse
Lung Excursion:: Normal
Abdomen:: Nontender and Soft
Bowel Sounds:: Normal
Extremity Edema:: None: Bilateral:
Carter Catheter: No
[2024-04-14 12:49] LABS: Glucose - Point of Care 278 mg/dl (70-99)
[2024-04-14] MEDS: NOVOLOG FLEXPEN-LOW RESISTANCE 3 UNITS SC (13:13)
--- NOTE | 2024-04-14 14:08 | W.PN.HOSP.TC ---
Today's Communication/Plan
-
Continue with current treatments
Follow-up colorectal surgery/oncology recommendations
Assessment / Plan
Assessment / Plan
78 year old man
#Melena/Unintentional Weight loss/Anemia
#Rectal Mass bx positive for adenocarcinoma
- Flex sig demonstrating near complete occlusion due to rectal mass, had difficulty passing scope. Biopsies positive.
Follow up CT demonstrating mass with no clear evidence of local mets.
MRI pelvis w/ & w/o -
Stage: T 3c N 0
CRM: Threatened
Sphincter involvement: No
Suspicious extra mesorectal lymph nodes: No
Colorectal surgery and Onc following -await a plan
#Pulmonary Ground Glass Nodule
- Incidental finding on CT scan measuring 4mm. Subcentimeter nodule OK; follow up as OP.
#Anemia, likely multifactorial (Acute Blood Loss/Iron Deficiency)
- Hgb 7.7 on admission, s/p 1U PRBC with improvement to 8.4.
- Iron studies show low iron, low saturation, low ferritin
- s/p PO & IV iron replacement
- Hgb stable today, transfuse if <7
#Acute Exacerbation of HFmrEF
- elevated ProBNP, R pleural effusion, complains of chronic cough with occasional clear/yellow sputum
- Improved , Lasix switched to PO .Cards signed off
- Echo EF 40-45%
#Small Left Pleural Effusion - saturations >88%. No shortness of breath.
#Hyponatremia, hypervolemic possibly secondary to SIADH vs. Cardiorenal
- 128 on admission with high urine sodium and high urine osmolality. Improved
- Given concern for rectal mass, malignant cause of SIADH is a serious consideration
- Fluid restriction 40oz
- appt nephro input
#NIDDM - hold glipizide, c/w metformin. LDISS.
CM to ellis out Jard[facility] for possible GDMT as outpatient.
#Hypercholesterolemia - c/w simvastatin
#Dementia - c/w donepezil
Diet: 2000 Calorie Diabetic, 40oz fluid restriction
DVT PPx: SCDs
Code Status: Full Code
DW daughter and son at bedside and went over the positive biopsy and the MRI report . Further plan based on oncology and colorectal surgery input.
PT eval noted-they are recommending rehab.
Anticipated Discharge: > 48 hours
Subjective/Interval History
-
Date of Service: April 14, 2024
Tolerating diet without symptoms.
Voices no specific complaints. States improvement in the lower extremity edema. Denies shortness of breath.
Objective Data
-
Labs:
Laboratory Results
04/14/24
07:32
WBC 5.3
Hgb 8.6 L
Hct 26.5 L
Plt Count 310
Sodium 128 L
Potassium 3.8
Chloride 95 L
Carbon Dioxide 30
BUN 27 H
Creatinine 0.9
Glucose 159 H
Calcium 8.4
Vital Signs:
Vital Signs
Temp Pulse Resp BP Pulse Ox
97.7 F 63 18 114/45 98
04/14/24 11:00 04/14/24 11:00 04/14/24 11:00 04/14/24 11:00 04/14/24 11:00
I&O
04/13/24 04/14/24 04/15/24
06:59 06:59 06:59
Intake Total 110 / 110 360 / 360
Output Total 500 / 500 3150 / 3150
Balance -390 / -390 -2790 / -2790
Review of Systems
-
Constitutional: Denies Fever
EENT: Denies Sore Throat
Cardiac: Denies Chest Pain
Neuro: Denies Dizzy
Physical Exam
-
General: No Apparent Distress
HEENT: Moist Mucous Membranes
Respiratory: Clear to Auscultation
Cardiac: Regular Rhythm and S1/S2
GI: Soft
Musculoskeletal: Negative No Edema (improved BL LE edema)
Neuro: AO x 3
Psych: Calm
Data Reviewed
-
Labs: Labs Reviewed by me
[2024-04-14 16:42] LABS: Glucose - Point of Care 350 mg/dl (70-99)
[2024-04-14] MEDS: NOVOLOG FLEXPEN-LOW RESISTANCE 5 UNITS SC (16:54)
[2024-04-14] MEDS: LIPITOR 20 MG PO (16:59)
[2024-04-14] MEDS: ARICEPT 10 MG PO (21:54)
[2024-04-14] MEDS: MELATONIN 10 MG PO (21:54)
[2024-04-15] VITALS (8 sets, daily range): BP systolic 116–137; BP diastolic 53–63; PULSE 63; O2SAT 99
[2024-04-15] MEDS: OCEAN, SALINE MIST 2 SPRAYS NASAL ×2 (00:16→22:36)
[2024-04-15 00:57] LABS: Hematocrit 26.3 % (39.0-52.0); Hemoglobin 8.7 g/dL (13.0-18.0)
[2024-04-15 02:31] LABS: Glucose - Point of Care 200 mg/dl (70-99)
[2024-04-15] MEDS: BENADRYL 50 MG PO (02:38)
[2024-04-15 07:10] LABS: Glucose - Point of Care 180 mg/dl (70-99)
[2024-04-15 07:27] LABS: Hematocrit 28.2 % (39.0-52.0); Hemoglobin 9.2 g/dL (13.0-18.0); Mean Corp Hgb Conc. 32.6 g/dL (33.0-37.0); Mean Corpuscular Hgb 27.6 pg (27.0-31.0); Mean Corpuscular Volume 84.7 fL (80.0-94.0); Mean Platelet Volume 9.2 fL (7.4-10.4); Platelet Count 334 10^3/uL (130-400); Red Blood Cell Count 3.33 10^6/uL (4.70-6.10); Red Cell Dist. Width 18.6 % (11.5-14.5); White Blood Cell Count 6.7 10^3/uL (4.8-10.8)
[2024-04-15 08:14] LABS: Blood Urea Nitrogen 25 mg/dl (9-20); Calcium 8.3 mg/dl (8.4-10.2); Carbon Dioxide 29 mmol/L (22-30); Chloride 94 mmol/L (98-107); Estimated Creatinine Clearance 56 ml/min; Glucose 161 mg/dl (70-99); Potassium 3.9 mmol/L (3.5-5.1); Sodium 125 mmol/L (135-145); eGFR > 60.00
[2024-04-15] MEDS: LASIX 40 MG PO (09:14)
[2024-04-15] MEDS: COZAAR 25 MG PO (09:14)
[2024-04-15] MEDS: MIRALAX 17 GRAMS PO (09:15)
[2024-04-15] MEDS: NSS (PRESERVATIVE FREE) 10 ML IV (09:15)
[2024-04-15] MEDS: PROTONIX IV 40 MG IV (09:15)
[2024-04-15] MEDS: TOPROL XL 25 MG PO (09:15)
[2024-04-15] MEDS: NOVOLOG FLEXPEN-LOW RESISTANCE 1 UNITS SC (09:16)
--- NOTE | 2024-04-15 10:59 | W.PN.NEPH.PH ---
Today's Communication / Plan
-
samsca 15mg po once
Maintain oral Lasix and fluid restriction
Assessment/Plan
-
Impression:
Hyponatremia: (hypervolemic)
Rectal mass new diagnosis/GI bleed
Anemia
New diagnosis of congestive heart failure with exacerbation
Diabetes
Hyperlipidemia
Dementia
Plan:
Hyponatremia:
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
-Checked urine osmolality, adjust fluid restriction 48 ounces, sodium down to 125, samsca 15mg po times one
-Maintain 40 mg po Lasix daily weights down, losartan added by cardiology for cardiomyopathy
-Accurate I's and O's and daily weights
-
-
Date of Service: April 15, 2024
CC / HPI / ROS
-
Chief Complaint:
Hyponatremia
History of Present Illness:
Serum sodium dwon to 125 on fluid restriction and oral Lasix
Hemodynamically stay
Review of Systems:
Nonoliguric
Weights down
Labs
-
Labs:
WBC 6.7 10^3/uL (4.8-10.8) 04/15/24 06:33
RBC 3.33 10^6/uL (4.70-6.10) L 04/15/24 06:33
Hgb 9.2 g/dL (13.0-18.0) L 04/15/24 06:33
Hct 28.2 % (39.0-52.0) L 04/15/24 06:33
Plt Count 334 10^3/uL (130-400) 04/15/24 06:33
Sodium 125 mmol/L (135-145) L 04/15/24 06:33
Potassium 3.9 mmol/L (3.5-5.1) 04/15/24 06:33
Chloride 94 mmol/L (98-107) L 04/15/24 06:33
Carbon Dioxide 29 mmol/L (22-30) 04/15/24 06:33
BUN 25 mg/dl (9-20) H 04/15/24 06:33
Creatinine 0.9 mg/dL (0.7-1.3) 04/15/24 06:33
eGFR > 60.00 04/15/24 06:33
Glucose 161 mg/dl (70-99) H 04/15/24 06:33
Calcium 8.3 mg/dl (8.4-10.2) L 04/15/24 06:33
Yzq-W-Lewhkzgdpqe Pept 2080 pg/ml 04/10/24 06:41
Albumin 3.1 g/dl (3.5-5.0) L 04/09/24 17:23
Physical Exam
-
Vital Signs:
Vital Signs
Temp Pulse Resp BP Pulse Ox
97.9 F 64 14 132/59 95
04/15/24 07:45 04/15/24 09:14 04/15/24 07:45 04/15/24 09:14 04/15/24 07:45
Cardiovascular:: Regular rate and rhythm
Respiratory:: Bilateral: Coarse
Lung Excursion:: Normal
Abdomen:: Nontender and Soft
Bowel Sounds:: Normal
Extremity Edema:: None: Bilateral:
Carter Catheter: No
--- NOTE | 2024-04-15 12:22 | W.PN.HOSP.TC ---
Today's Communication/Plan
-
Optimize Na
OP follow up with Onc and CRS
DC planning
Assessment / Plan
Assessment / Plan
78 year old man
#Melena/Unintentional Weight loss/Anemia
#Rectal Mass bx positive for adenocarcinoma
- Flex sig demonstrating near complete occlusion due to rectal mass, had difficulty passing scope. Biopsies positive.
Follow up CT demonstrating mass with no clear evidence of local mets.
MRI pelvis w/ & w/o -
Stage: T 3c N 0
CRM: Threatened
Sphincter involvement: No
Suspicious extra mesorectal lymph nodes: No
Colorectal surgery and Onc following
#Pulmonary Ground Glass Nodule
- Incidental finding on CT scan measuring 4mm. Subcentimeter nodule OK; follow up as OP.
#Anemia, likely multifactorial (Acute Blood Loss/Iron Deficiency)
- Hgb 7.7 on admission, s/p 1U PRBC with improvement to 8.4.
- Iron studies show low iron, low saturation, low ferritin
- s/p PO & IV iron replacement
- Hgb stable today, transfuse if <7
#Acute Exacerbation of HFmrEF
- elevated ProBNP, R pleural effusion, complains of chronic cough with occasional clear/yellow sputum
- Improved , Lasix switched to PO .Cards signed off
- Echo EF 40-45%
#Small Left Pleural Effusion - saturations >88%. No shortness of breath.
#Hyponatremia, hypervolemic possibly secondary to SIADH vs. Cardiorenal
- 128 on admission with high urine sodium and high urine osmolality. Improved
- Given concern for rectal mass, malignant cause of SIADH is a serious consideration
- Fluid restriction 40oz
- appt nephro input
#NIDDM - hold glipizide, c/w metformin. LDISS.
CM to ellis out Jardiance for possible GDMT as outpatient.
#Hypercholesterolemia - c/w simvastatin
#Dementia - c/w donepezil
Diet: 2000 Calorie Diabetic, 40oz fluid restriction
DVT PPx: SCDs
Code Status: Full Code
Discussed with colorectal surgery. Apparently patient was refusing colostomy. They are recommending preop chemoradiation as appropriate and plan on surgery as an outpatient.
PT eval noted-they are recommending rehab.
Once Na is optimzed will plan on DC.
Likely dc in am to rehab if stable.
Anticipated Discharge: Within 24 hours
Subjective/Interval History
-
Date of Service: April 15, 2024
Then sleeps well last night due to interruption. This morning was sleepy.
He states he is tolerating oral diet without any nausea vomiting or abdominal pain.
Objective Data
-
Labs:
Laboratory Results
04/15/24 04/15/24
00:26 06:33
WBC 6.7
Hgb 8.7 L 9.2 L
Hct 26.3 L 28.2 L
Plt Count 334
Sodium 125 L
Potassium 3.9
Chloride 94 L
Carbon Dioxide 29
BUN 25 H
Creatinine 0.9
Glucose 161 H
Calcium 8.3 L
Vital Signs:
Vital Signs
Temp Pulse Resp BP Pulse Ox
97.6 F 70 16 132/63 97
04/15/24 11:25 04/15/24 11:25 04/15/24 11:25 04/15/24 11:25 04/15/24 11:25
I&O
04/14/24 04/15/24 04/16/24
06:59 06:59 06:59
Intake Total 360 / 360 240 / 240
Output Total 3150 / 3150 275 / 275
Balance -2790 / -2790 -35 / -35
Review of Systems
-
Constitutional: Denies Fever
Respiratory: Denies Trouble Breathing
Cardiac: Denies Chest Pain
Neuro: Denies Dizzy
Physical Exam
-
General: Comfortable
Respiratory: Clear to Auscultation and Non Labored Respirations; Negative Accessory Resp Muscle Use
Cardiac: Regular Rhythm and S1/S2; Negative Tachycardic
GI: Soft and Nontender
Musculoskeletal: Negative No Edema (Improved BL LE edema)
Neuro: AO x 3
Data Reviewed
-
Labs: Labs Reviewed by me
[2024-04-15 12:26] LABS: Glucose - Point of Care 292 mg/dl (70-99)
[2024-04-15] MEDS: SAMSCA 15 MG PO (12:30)
[2024-04-15] MEDS: NOVOLOG FLEXPEN-LOW RESISTANCE 3 UNITS SC (15:09)
[2024-04-15 16:46] LABS: Glucose - Point of Care 331 mg/dl (70-99)
[2024-04-15] MEDS: LIPITOR 20 MG PO (16:57)
[2024-04-15] MEDS: NOVOLOG FLEXPEN-LOW RESISTANCE 4 UNITS SC (17:02)
[2024-04-15] MEDS: ARICEPT 10 MG PO (21:13)
[2024-04-15] MEDS: MELATONIN 10 MG PO (21:13)
[2024-04-15 21:23] LABS: Glucose - Point of Care 373 mg/dl (70-99)
[2024-04-15] MEDS: NOVOLOG FLEXPEN 7 UNITS SC (22:34)
[2024-04-15] MEDS: BENADRYL 25 MG PO (22:35)
--- NOTE | 2024-04-15 23:12 | W.PN.ONC ---
Today's Communication / Plan
-
awaiting placement for rehab
Impression
Impression
Flex sigmoidoscopy performed at [place] demonstrated a fungating partially obstructing large mass in the distal rectum. Biopsies were performed, results currently pending
Underwent CT chest abdomen pelvis which was negative for any obvious metastatic disease
Pelvic MRI recently completed for staging purposes
Pelvic MRI demonstrated patient is a clinical T3 N0 M0, no sphincter involvement and no suspicious extremities or rectal lymph nodes on MRI
Consistent with locally advanced rectal cancer
Labs demonstrate iron deficiency anemia, likely secondary to GI bleeding
Plan
Plan
#Locally advanced rectal carcinoma
Flex sig demonstrated large rectal mass partially occluding bowel
CT abdomen pelvis demonstrated no obvious metastatic disease
Pelvic MRI demonstrates patient is a clinical T3 N0 M0, findings consistent with locally advanced rectal carcinoma
Typical plan for locally advanced rectal carcinoma is neoadjuvant chemoradiation to downstage prior to surgery
Will arrange follow-up outpatient medical oncology follow-up
Will also arrange follow-up outpatient radiation oncology follow-up
Colorectal is following, recommendations appreciated. Recommend follow-up in their office once patient stable for discharge to discuss further surgical management
#Anemia
Ferritin 8.5, percent saturation 11
Labs are consistent with iron deficiency anemia likely secondary to GI bleeding
Recommend daily CBC to monitor hemoglobin
Recommend continuing iron infusion
Consideration for outpatient iron infusion in hematology office
Oncology Addendum:
Patient seen and evaluated and agree w/ resident note and plan as outlined
-locally advanced rectal cancer - w/ partially obstructing mass in the distal rectum
-CT w/ no definitive evidence of metastatic disease
-MRI pelvis - demonstrating T3 lesion - 4.8cm from anal verge - N0 - no apparent suspicious lymph nodes
-discussed neoadjuvant approach w/ patient - tx w/ chemotherapy and XRT - prior to surgery
-will arrange outpt f/u for further discussion and treatment planning
-XRT has been consulted
-iron deficiency - anemia - Hb holding 8.6g/dl today
-can assist w/ additional iron repletion as outpt, as well
Will continue to folllow with you.
Subjective/Objective
Subjective/Objective
no complaints
Vital Signs:
Vital Signs
Temp Pulse Resp BP Pulse Ox
97.7 F 66 18 132/60 98
04/15/24 19:40 04/15/24 19:40 04/15/24 19:40 04/15/24 19:40 04/15/24 19:40
Lab Results:
Laboratory Data
WBC 6.7 10^3/uL (4.8-10.8) 04/15/24 06:33
Hgb 9.2 g/dL (13.0-18.0) L 04/15/24 06:33
Plt Count 334 10^3/uL (130-400) 04/15/24 06:33
eGFR > 60.00 04/15/24 06:33
[2024-04-16] VITALS (7 sets, daily range): BP systolic 104–150; BP diastolic 43–72; PULSE 62; O2SAT 99; BMI 18.9
[2024-04-16 00:44] LABS: Glucose - Point of Care 94 mg/dl (70-99)
[2024-04-16 04:12] LABS: Glucose - Point of Care 124 mg/dl (70-99)
[2024-04-16 08:16] LABS: Glucose - Point of Care 148 mg/dl (70-99)
--- NOTE | 2024-04-16 08:30 | W.PN.HOSP.TC ---
Addendum entered and electronically signed by Tatiana Lamas MD 04/16/24 20:07:
I saw and evaluated the patient independently. I reviewed the resident�s note and agree with findings and plan as documented by Dr. South.
GENERAL: well developed, well nourished, male in no apparent distress
HEENT: NC/AT NO O2 requirements
HEART: regular rate and rhythm, +S1, +S2
LUNGS : clear to auscultation bilaterally
ABDOM: soft, nontender, nondistended, + bowel sounds
EXT: no cyanosis, clubbing, or edema
NEUROLOGIC: appears to have dementia
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
metastasis--MRI conducted on 04/13/2024 showed : Stage T3c N0, CRM threatened, no sphincter involvement, no suspicious extra mesorectal lymph nodes
Pulmonary Ground Glass nodule--Incidental finding on CT scan measuring 4 mm vs met--Follow-up as outpatient
Anemia, likely multifactorial (acute blood loss/iron deficiency)--s/p 1 unit pRBC--HGB 7.7 to 9.7--s/p PO and IV iron replacement
Acute exacerbation of HFmrEF--Improved--EF 40-45%--lasix to oral--apprec cards
Left pleural effusion--Chest x-ray conducted on 04/09/2024 showed a small right pleural effusion--Saturations are greater than 88% with no shortness of breath
Hyponatremia, hypervolemic possibly secondary to SIADH vs. Cardiorenal --malignant cause of SIADH is a serious consideration--Fluid restriction 40oz--apprec renal/cards--s/p samsca
NIDDM: Stable--holding glipizide, c/w metformin. LDISS--CM to ellis out Jardiance for possible GDMT as outpatient.
Hypercholesterolemia: Stable--Continue simvastatin
Dementia--I do not believe the patient understands his diagnosis or treatment plan--thinks he has a 'gas problem and when that comes out, then I can have a BM'--cont donepezil
DVT Proph-- SCDs
Code Status-- Full Code
Original Note:
Today's Communication/Plan
-
Patient appears confused and it is uncertain whether he understands the diagnosis he has and its impact on his health. I reached out to his daughter and son but unfortunately both were unavailable to speak at the present time. I will reach out to
them tomorrow to touch base in regards to the patient's current status and future discharge planning which would include follow-ups with colorectal surgery and oncology in the outpatient setting.
Assessment / Plan
Assessment / Plan
HPI: The patient is an 78-year-old male with a past medical history known for diabetes presenting to the emergency department with a hemoglobin of 7.5 detected on outpatient labs. The provider in the emergency department who conducted the patient's
interview was under the impression of the patient appeared to have dementia. Patient reported that he had been having fatigue for several weeks prior to his presentation. He also reported that he had had gas and bowel problems for which he takes
Gas-X. He has mild constipation which improves after he passes gas and then follows having the bowel movement. The patient denied seeing any blood in his stool or having any dark stools. The patient denied any history of abdominal pain or reflux
symptoms. He also denied a history of peptic ulcer disease and does not use any NSAIDs. The patient never had a colonoscopy. The patient mentioned that his family told him that he was losing weight but he was not under the same impression. The
patient did endorse some reduced appetite and stated that his appetite has improved recently. He denied any night sweats. He denied any coughing, fevers, or chills. In the emergency department he was hemodynamically stable with a blood pressure
of 120/50, a pulse of 67, and his pulse oxygenation was 100% on room air. His sodium was 128 and the rest of his electrolytes were stable. BUN was 30 and he had a creatinine of 1. He also had a low ferritin at 8.5, low iron levels at 43, and low
iron saturation at 11%. Lab work in the emergency department showed hemoglobin at 7.7. The patient was given 1 unit of PRBCs in the emergency department. Patient was admitted to [facility] for anemia likely due to a combination of blood
loss and iron deficiency.
Assessment/plan:
-Melena/unintentional weight loss/anemia = Adenocarcinoma of the rectum
Rectal mass biopsy positive for adenocarcinoma
Flex sig demonstrated near complete occlusion due to rectal mass and there was difficulty passing the scope. Biopsies were positive.
Follow-up CT demonstrated mass with no clear evidence of local metastasis
MRI conducted on 04/13/2024 showed : Stage T3c N0, CRM threatened, no sphincter involvement, no suspicious extra mesorectal lymph nodes
Colorectal surgery recommends outpatient chemoradiation and that the patient should follow-up with Dr. Figueroa in the outpatient setting.
Oncology recommended neoadjuvant approach with patient with treatment including chemotherapy and XRT prior to surgery. XRT has been consulted. They will arrange an outpatient follow-up for further discussion and treatment planning.
-Pulmonary Ground Glass nodule:
Incidental finding on CT scan measuring 4 mm
Follow-up as outpatient
-Anemia, likely multifactorial (acute blood loss/iron deficiency):
Hemoglobin was 7.7 on admission -was given 1 unit PRBCs in the emergency department
Hemoglobin currently 9.7 and stable
Iron studies showed low iron, low iron saturation, and low ferritin
P.o. and IV iron replacement given
Transfuse again if hemoglobin dips below 7
-Acute exacerbation of HFmrEF: Improved
Echo ejection fraction showed 40 to 45%
Labs showed elevated proBNP, right pleural effusion, and he complains of chronic cough with occasional clear/yellow sputum
Lasix switched to oral
Cardiology signed
-Left pleural effusion:
Chest x-ray conducted on 04/09/2024 showed a small right pleural effusion
Saturations are greater than 88% with no shortness of breath
Will continue to monitor
-Hyponatremia, hypervolemic possibly secondary to SIADH vs. Cardiorenal
128 on admission with high urine sodium and high urine osmolality. Improved
Given concern for rectal mass, malignant cause of SIADH is a serious consideration
Fluid restriction 40oz
Appreciate nephrology input�they believed that the hyponatremia was likely due to elevated ADH in the setting of congestive heart failure exacerbation and possible SIADH related to underlying colon malignancy. They check urine osmolality and
adjusted fluid restriction to 48 ounces. Sodium was 131 s/p Samsca 15 mg oral dose once. They recommended maintaining 40 mg of oral Lasix daily to reduce weight.
Follow I's and O's-
-NIDDM: Stable
holding glipizide, c/w metformin. LDISS.
CM to ellis out Jardiance for possible GDMT as outpatient.
-Hypercholesterolemia: Stable
Continue simvastatin
-Dementia:
Continue donepezil
Diet: 2000 Calorie Diabetic, 40oz fluid restriction
DVT PPx: SCDs
Code Status: Full Code
Anticipated Discharge: 24 - 48 hours
Subjective/Interval History
-
Met with patient at the bedside. The patient is pleasant and cooperative in conversation but unfortunately appears to be confused. During discussion we mentioned that the patient had adenocarcinoma which was the attributing cause to his bowel
issues and blood loss. He appeared to understand the diagnosis initially and the course of treatment but later on in discussion circled around back to stating that his bowel issues generally are caused by him being unable to pass gas and once he
passes gas he is able to have his normal bowel movement. The nurse stated that the patient had loose bloody stools today instead of constipation. It is uncertain whether he understands that his adenocarcinoma is the cause of his current symptoms.
I called his daughter Miroslava who unfortunately was too busy to speak at the present time and she requested that we update his other son Tye on the patient's status. Unfortunately, the son Tye was unable to answer the phone so I will call him
tomorrow.
Objective Data
-
Labs:
Labs
04/16/24 08:36
04/16/24 07:39
Vital Signs:
Vital Signs
Temp Pulse Resp BP Pulse Ox
97.9 F 69 18 128/60 97
04/16/24 03:42 04/16/24 03:42 04/16/24 03:42 04/16/24 03:42 04/16/24 03:42
I&O
04/15/24 04/16/24 04/17/24
06:59 06:59 06:59
Intake Total 240 / 240 120 / 120
Output Total 275 / 275
Balance -35 / -35 120 / 120
Review of Systems
-
History Source: Patient
Constitutional: Reports Fatigue, Sleep Disturbance and Weakness
EENT: Reports No Symptoms Reported
Respiratory: Reports No Symptoms
Cardiac: Reports No Symptoms
Abdomen/GI: Reports No Symptoms
Breast: Reports No Symptoms
Genitourinary: Reports No Symptoms
Musculoskeletal: Reports No Symptoms
Skin: Reports No Symptoms
Neuro: Reports No Symptoms
Endocrine: Reports No Symptoms
Hematologic / Lymphatic: Reports No Symptoms
Physical Exam
-
General: Well Developed, Well Nourished and No Apparent Distress
HEENT: Normocephalic, Atraumatic and Other (Dry mouth)
Respiratory: Clear to Auscultation
Cardiac: Regular Rhythm and S1/S2
Breast: Deferred by me
GI: Soft and Nontender
Rectal: Deferred by Provider
Genito-urinary: Deferred by me
Musculoskeletal: No Clubbing and No Cyanosis
Skin: Warm and Dry
Neuro: Awake and Oriented
Psych: Confused
[2024-04-16 08:32] LABS: Blood Urea Nitrogen 22 mg/dl (9-20); Calcium 8.6 mg/dl (8.4-10.2); Carbon Dioxide 31 mmol/L (22-30); Chloride 95 mmol/L (98-107); Estimated Creatinine Clearance 51 ml/min; Glucose 143 mg/dl (70-99); Potassium 3.9 mmol/L (3.5-5.1); Sodium 131 mmol/L (135-145); eGFR > 60.00
[2024-04-16 08:55] LABS: Hematocrit 30.8 % (39.0-52.0); Hemoglobin 9.7 g/dL (13.0-18.0); Mean Corp Hgb Conc. 31.5 g/dL (33.0-37.0); Mean Corpuscular Volume 85.8 fL (80.0-94.0); Mean Platelet Volume 8.9 fL (7.4-10.4); Platelet Count 320 10^3/uL (130-400); Red Blood Cell Count 3.59 10^6/uL (4.70-6.10); Red Cell Dist. Width 19.3 % (11.5-14.5); White Blood Cell Count 4.9 10^3/uL (4.8-10.8)
[2024-04-16] MEDS: NOVOLOG FLEXPEN-LOW RESISTANCE SC (09:05)
--- NOTE | 2024-04-16 09:54 | W.PN.CRS1 ---
Today's Communication / Plan
-
dc planning
Assessment/Plan
-
Assessment: 78-year-old male presented to the ER with intermittent bleeding, weakness, and weight loss, found with anemia status post 1 unit packed red blood cells and rectal mass on sigmoidoscopy
Plan:
-Discussed studies at length with the patient. Given he is able to eat and continue to pass stool, there is no need for urgent colostomy diversion. However we did discuss should things change and he obstruct, he would require surgery.
-Appreciate heme onc/rad onc
-Stool softener MiraLAX daily
-CEA = 2.31
-Raissa Ulrich, our rectal cancer nurse navigator, has been notified of his case
-Pathology = Invasive moderately well differentiated rectal adenocarcinoma
-Follow up with Dr. Figueroa as an outpatient
Subjective Data
Subjective Data
Date of Service: April 16, 2024
Patient states he has no pain. He is having bowel movements. He does not feel bloated.
Objective Data
-
Vital Signs
Temp Pulse Resp BP Pulse Ox
98.5 F 71 20 139/70 99
04/16/24 07:00 04/16/24 07:00 04/16/24 07:00 04/16/24 07:00 04/16/24 07:00
Intake & Output
04/15/24 04/16/24 04/17/24
06:59 06:59 06:59
Intake Total 240 / 240 120 / 120
Output Total 275 / 275
Balance -35 / -35 120 / 120
Intake:
Oral fluids 240 / 240 120 / 120
Output:
Urine, Voided 275 / 275
Other:
Number of approximated MODERATE 5
amounts of urine
How many times incontinent 5
SATURATED amount urine
Lab Results
04/16/24 08:36
04/16/24 07:39
Physical Exam
-
General: No Acute Distress and AOx3
Abdomen: Soft, Non Distended and Non Tender
Skin: Warm and Dry
--- NOTE | 2024-04-16 10:02 | W.PN.ONC2 ---
Today's Communication / Plan
-
.
Impression
Impression
-locally advanced rectal cancer - w/ partially obstructing mass in the distal rectum
-CT w/ no definitive evidence of metastatic disease
-MRI pelvis - demonstrating T3 lesion - 4.8cm from anal verge - N0 - no apparent suspicious lymph nodes
-discussed neoadjuvant approach w/ patient - tx w/ chemotherapy and XRT - prior to surgery
-will arrange outpt f/u for further discussion and treatment planning
-XRT has been consulted
-iron deficiency - anemia - Hb holding 8.6g/dl today
-can assist w/ additional iron repletion as outpt, as well
Plan
Plan
neoadjuvant approach w/ patient - tx w/ chemotherapy and XRT - prior to surgery
will arrange outpt f/u for further discussion and treatment planning
Subjective/Objective
Subjective
no new complaints
Vital Signs:
Vital Signs
Temp Pulse Resp BP Pulse Ox
98.5 F 71 20 139/70 99
04/16/24 07:00 04/16/24 07:00 04/16/24 07:00 04/16/24 07:00 04/16/24 07:00
Lab Results:
Laboratory Data
WBC 4.9 10^3/uL (4.8-10.8) 04/16/24 08:36
Hgb 9.7 g/dL (13.0-18.0) L 04/16/24 08:36
Plt Count 320 10^3/uL (130-400) 04/16/24 08:36
eGFR > 60.00 04/16/24 07:39
Physical Exam
HEENT: Moist Mucous Membranes; No Jaundice
Cardiology: Normal Sinus Rhythm
Pulmonary: Clear
GI: Soft
Extremities: Pulses Present; No Edema
[2024-04-16] MEDS: COZAAR 25 MG PO (10:07)
[2024-04-16] MEDS: MIRALAX 17 GRAMS PO (10:07)
[2024-04-16] MEDS: TOPROL XL 25 MG PO (10:11)
[2024-04-16] MEDS: PROTONIX 40 MG PO (10:11)
[2024-04-16] MEDS: LASIX 40 MG PO (10:11)
--- NOTE | 2024-04-16 11:38 | W.PN.NEPH.PH ---
Today's Communication / Plan
-
Continue Lasix
Assessment/Plan
-
Impression:
Hyponatremia: (hypervolemic)
Rectal mass new diagnosis/GI bleed
Anemia
New diagnosis of congestive heart failure with exacerbation
Diabetes
Hyperlipidemia
Dementia
Plan:
Hyponatremia:
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
-Checked urine osmolality, adjust fluid restriction 48 ounces, s sodium 131 status post samsca 15mg po times one
-Maintain 40 mg po Lasix daily weights down, losartan added by cardiology for cardiomyopathy
-Accurate I's and O's and daily weights
-
-
Date of Service: April 16, 2024
CC / HPI / ROS
-
Chief Complaint:
Hyponatremia
History of Present Illness:
Serum sodium 131 on fluid restriction and oral Lasix
Review of Systems:
Nonoliguric
Weights down
Labs
-
Labs:
WBC 4.9 10^3/uL (4.8-10.8) 04/16/24 08:36
RBC 3.59 10^6/uL (4.70-6.10) L 04/16/24 08:36
Hgb 9.7 g/dL (13.0-18.0) L 04/16/24 08:36
Hct 30.8 % (39.0-52.0) L 04/16/24 08:36
Plt Count 320 10^3/uL (130-400) 04/16/24 08:36
Sodium 131 mmol/L (135-145) L 04/16/24 07:39
Potassium 3.9 mmol/L (3.5-5.1) 04/16/24 07:39
Chloride 95 mmol/L (98-107) L 04/16/24 07:39
Carbon Dioxide 31 mmol/L (22-30) H 04/16/24 07:39
BUN 22 mg/dl (9-20) H 04/16/24 07:39
Creatinine 1.0 mg/dL (0.7-1.3) 04/16/24 07:39
eGFR > 60.00 04/16/24 07:39
Glucose 143 mg/dl (70-99) H 04/16/24 07:39
Calcium 8.6 mg/dl (8.4-10.2) 04/16/24 07:39
Niz-I-Vxcomqtzfbz Pept 2080 pg/ml 04/10/24 06:41
Albumin 3.1 g/dl (3.5-5.0) L 04/09/24 17:23
Physical Exam
-
Vital Signs:
Vital Signs
Temp Pulse Resp BP Pulse Ox
98.5 F 68 20 132/56 99
04/16/24 07:00 04/16/24 10:07 04/16/24 07:00 04/16/24 10:07 04/16/24 07:00
Cardiovascular:: Regular rate and rhythm
Respiratory:: Bilateral: CTA and Bilateral: Coarse
Lung Excursion:: Normal
Abdomen:: Nontender and Soft
Bowel Sounds:: Normal
Extremity Edema:: None: Bilateral:
Carter Catheter: No
[2024-04-16 12:18] LABS: Glucose - Point of Care 157 mg/dl (70-99)
[2024-04-16] MEDS: NOVOLOG FLEXPEN-LOW RESISTANCE 1 UNITS SC (13:55)
--- NOTE | 2024-04-16 17:09 | CM ---
CM spoke with patient at bedside, PT/OT recommending SNF. Patient son Tye and daughter Miroslava spoke with CM via phone. Patient asked CM to talk to son Tye [phone]. Patient daughter stated that she has no knowledge of updated assessments and
requested physician call to provide update. CM updated physician. Family only intrested in [facility] if SNF level needed. CM will continue to follow for discharge planning needs.
Plan; SNF [facility] pending bed availability.
[2024-04-16 17:15] LABS: Glucose - Point of Care 337 mg/dl (70-99)
[2024-04-16] MEDS: NOVOLOG FLEXPEN-LOW RESISTANCE 4 UNITS SC (17:16)
[2024-04-16] MEDS: LIPITOR 20 MG PO (18:04)
[2024-04-16] MEDS: ARICEPT 10 MG PO (21:02)
[2024-04-16] MEDS: MELATONIN 10 MG PO (21:02)
[2024-04-16] MEDS: BENADRYL 25 MG PO (21:02)
[2024-04-16 21:25] LABS: Glucose - Point of Care 317 mg/dl (70-99)
--- NOTE | 2024-04-17 07:32 | W.PN.HOSP.TC ---
Addendum entered and electronically signed by Tatiana Lamas MD 04/17/24 20:45:
I saw and evaluated the patient independently. I reviewed the resident�s note and agree with findings and plan as documented by Dr. South.
GENERAL: well developed, well nourished, male in no apparent distress
HEENT: NC/AT NO O2 requirements
HEART: regular rate and rhythm, +S1, +S2
LUNGS : clear to auscultation bilaterally
ABDOM: soft, nontender, nondistended, + bowel sounds
EXT: no cyanosis, clubbing, or edema
NEUROLOGIC: appears to have dementia
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
metastasis--MRI conducted on 04/13/2024 showed : Stage T3c N0, CRM threatened, no sphincter involvement, no suspicious extra mesorectal lymph nodes
Pulmonary Ground Glass nodule--Incidental finding on CT scan measuring 4 mm vs met--Follow-up as outpatient
Anemia, likely multifactorial (acute blood loss/iron deficiency)--s/p 1 unit pRBC--HGB 7.7 to 9.7--s/p PO and IV iron replacement
Acute exacerbation of HFmrEF--Improved--EF 40-45%--lasix to oral--apprec cards
Left pleural effusion--Chest x-ray conducted on 04/09/2024 showed a small right pleural effusion--Saturations are greater than 88% with no shortness of breath
Hyponatremia, hypervolemic possibly secondary to SIADH vs. Cardiorenal --malignant cause of SIADH is a serious consideration--Fluid restriction 40oz--apprec renal/cards--s/p samsca
NIDDM: Stable--holding glipizide, c/w metformin. LDISS--CM to ellis out Jardiance for possible GDMT as outpatient.
Hypercholesterolemia: Stable--Continue simvastatin
Dementia--I do not believe the patient understands his diagnosis or treatment plan--thinks he has a 'gas problem and when that comes out, then I can have a BM'--cont donepezil
DVT Proph-- SCDs
Code Status-- Full Code
Original Note:
Today's Communication/Plan
-
Spoke to patient about contacting family in regards to updating them about patient's status. Patient requested that we speak with his son Severino. I phoned his son and updated him on the patient's current status. The son will share these updates
with the family and have a family meeting to discuss plans moving forward. They are aware that the patient will need to go to a senior care facility in order to benefit from skilled rehab. Once the patient regains enough strength he will be
appropriate for further treatment/follow-up by oncology and colorectal surgery. Oncology and colorectal surgery are coordinating to follow-up with the patient in the outpatient setting. Possible future discharge to [facility] if amenable.
Assessment / Plan
Assessment / Plan
Assessment/plan:
-Melena/unintentional weight loss/anemia = Adenocarcinoma of the rectum
Rectal mass biopsy positive for adenocarcinoma
Flex sig demonstrated near complete occlusion due to rectal mass and there was difficulty passing the scope. Biopsies were positive.
Follow-up CT demonstrated mass with no clear evidence of local metastasis
MRI conducted on 04/13/2024 showed : Stage T3c N0, CRM threatened, no sphincter involvement, no suspicious extra mesorectal lymph nodes
Colorectal surgery recommends outpatient chemoradiation and that the patient should follow-up with Dr. Figueroa in the outpatient setting.
Oncology recommended neoadjuvant approach with patient with treatment including chemotherapy and XRT prior to surgery. XRT has been consulted. They will arrange an outpatient follow-up for further discussion and treatment planning.
-Pulmonary Ground Glass nodule:
Incidental finding on CT scan measuring 4 mm
Follow-up as outpatient
-Anemia, likely multifactorial (acute blood loss/iron deficiency):
Hemoglobin was 7.7 on admission -was given 1 unit PRBCs in the emergency department
Hemoglobin currently 9.7 and stable
Iron studies showed low iron, low iron saturation, and low ferritin
P.o. and IV iron replacement given
Transfuse again if hemoglobin dips below 7
-Acute exacerbation of HFmrEF: Improved
Echo ejection fraction showed 40 to 45%
Labs showed elevated proBNP, right pleural effusion, and he complains of chronic cough with occasional clear/yellow sputum
Lasix switched to oral
Cardiology signed
-Left pleural effusion:
Chest x-ray conducted on 04/09/2024 showed a small right pleural effusion
Saturations are greater than 88% with no shortness of breath
Will continue to monitor
-Hyponatremia, hypervolemic possibly secondary to SIADH vs. Cardiorenal
128 on admission with high urine sodium and high urine osmolality. Improved
Given concern for rectal mass, malignant cause of SIADH is a serious consideration
Fluid restriction 40oz
Appreciate nephrology input�they believed that the hyponatremia was likely due to elevated ADH in the setting of congestive heart failure exacerbation and possible SIADH related to underlying colon malignancy. They check urine osmolality and
adjusted fluid restriction to 48 ounces. Sodium was 131 s/p Samsca 15 mg oral dose once. They recommended maintaining 40 mg of oral Lasix daily to reduce weight.
Follow I's and O's-
-NIDDM: Stable
holding glipizide, c/w metformin. LDISS.
CM to ellis out Jardiance for possible GDMT as outpatient.
-Hypercholesterolemia: Stable
Continue simvastatin
-Dementia:
Continue donepezil
Diet: 2000 Calorie Diabetic, 40oz fluid restriction
DVT PPx: SCDs
Code Status: Full Code
Anticipated Discharge: 24 - 48 hours
Subjective/Interval History
-
Met with patient at the bedside. His status remains unchanged since yesterday and he continues to be forgetful. He states that he is aware of his cancer diagnosis but during discussion frequently circles back to an idea that his bowel issues were
caused by bladder voiding issues. Patient reiterated that he would like staff to speak with his son Severino on the phone and update his family about his current condition.
Objective Data
-
Labs:
Labs
04/17/24 07:23
04/17/24 07:23
Vital Signs:
Vital Signs
Temp Pulse Resp BP Pulse Ox
99.3 F 100 18 150/72 98
04/16/24 23:00 04/16/24 23:00 04/16/24 23:00 04/16/24 23:00 04/16/24 23:00
I&O
04/16/24 04/17/24 04/18/24
06:59 06:59 06:59
Intake Total 120 / 120 480 / 480
Balance 120 / 120 480 / 480
Review of Systems
-
Unable to obtain full review of systems at this time due to: Dementia
History Source: Patient
Respiratory: Reports No Symptoms
Cardiac: Reports No Symptoms
Abdomen/GI: Reports Constipated
Musculoskeletal: Reports No Symptoms
Skin: Reports No Symptoms
Neuro: Reports No Symptoms
Endocrine: Reports No Symptoms
Physical Exam
-
General: Well Developed, No Apparent Distress and Comfortable
HEENT: Normocephalic, Atraumatic and Moist Mucous Membranes
Respiratory: Clear to Auscultation
Cardiac: Regular Rhythm and S1/S2
Breast: Deferred by me
GI: Soft, Nontender, Nondistended and Normal Bowel Sounds
Rectal: Deferred by Provider
Genito-urinary: Deferred by me
Musculoskeletal: No Clubbing, No Cyanosis and No Edema
Neuro: Awake, Alert, Oriented and AO x 3
[2024-04-17 07:55] VITALS: BP 114/73
[2024-04-17 08:00] LABS: Hematocrit 30.5 % (39.0-52.0); Hemoglobin 9.8 g/dL (13.0-18.0); Mean Corp Hgb Conc. 32.1 g/dL (33.0-37.0); Mean Corpuscular Hgb 27.7 pg (27.0-31.0); Mean Corpuscular Volume 86.2 fL (80.0-94.0); Mean Platelet Volume 9.4 fL (7.4-10.4); Platelet Count 308 10^3/uL (130-400); Red Blood Cell Count 3.54 10^6/uL (4.70-6.10); Red Cell Dist. Width 19.3 % (11.5-14.5); White Blood Cell Count 9.5 10^3/uL (4.8-10.8)
[2024-04-17 08:05] LABS: Glucose - Point of Care 208 mg/dl (70-99)
[2024-04-17 08:36] LABS: ALT (SGPT) 29 U/L (0-50); AST (SGOT) 29 U/L (17-59); Albumin 2.8 g/dl (3.5-5.0); Alkaline Phosphatase 110 U/L (38-126); Blood Urea Nitrogen 25 mg/dl (9-20); Calcium 8.5 mg/dl (8.4-10.2); Carbon Dioxide 29 mmol/L (22-30); Chloride 92 mmol/L (98-107); Estimated Creatinine Clearance 44 ml/min; Glucose 201 mg/dl (70-99); Potassium 3.8 mmol/L (3.5-5.1); Sodium 127 mmol/L (135-145); Total Bilirubin 0.7 mg/dl (0.2-1.3); Total Protein 5.2 g/dl (6.3-8.2); eGFR > 60.00
[2024-04-17 08:42] LABS: Magnesium 1.7 mg/dl (1.6-2.3)
--- NOTE | 2024-04-17 09:00 | W.PN.ONC2 ---
Today's Communication / Plan
-
.
Impression
Impression
locally advanced rectal cancer - w/ partially obstructing mass in the distal rectum. MRI pelvis - demonstrating T3 lesion - 4.8cm from anal verge - N0 - no apparent suspicious lymph nodes. CT w/ no definitive evidence of metastatic disease
iron deficiency - anemia
Hyponatremia
Plan
Plan
neoadjuvant approach w/ patient - tx w/ chemotherapy and XRT - prior to surgery
will arrange outpt f/u for further discussion and treatment planning
Dispo SNF to optimize PS
Subjective/Objective
Subjective
no new complaints
OOB with walker during physical therapy
Vital Signs:
Vital Signs
Temp Pulse Resp BP Pulse Ox
98.4 F 67 16 114/73 97
04/17/24 07:55 04/17/24 07:55 04/17/24 07:55 04/17/24 07:55 04/17/24 07:55
Lab Results:
Laboratory Data
WBC 9.5 10^3/uL (4.8-10.8) 04/17/24 07:23
Hgb 9.8 g/dL (13.0-18.0) L 04/17/24 07:23
Plt Count 308 10^3/uL (130-400) 04/17/24 07:23
eGFR > 60.00 04/17/24 07:23
Physical Exam
HEENT: Moist Mucous Membranes; No Jaundice
Cardiology: Normal Sinus Rhythm
Pulmonary: Clear
GI: Soft
Extremities: Pulses Present; No Edema
[2024-04-17] MEDS: MIRALAX 17 GRAMS PO (10:17)
[2024-04-17] MEDS: COZAAR 25 MG PO (10:18)
[2024-04-17] MEDS: PROTONIX 40 MG PO (10:18)
[2024-04-17] MEDS: TOPROL XL 25 MG PO (10:18)
[2024-04-17] MEDS: LASIX 40 MG PO (10:18)
[2024-04-17] MEDS: NOVOLOG FLEXPEN-LOW RESISTANCE 2 UNITS SC (10:28)
[2024-04-17] MEDS: OCEAN, SALINE MIST 2 SPRAYS NASAL (10:35)
[2024-04-17 11:55] VITALS: BP 98/44
--- NOTE | 2024-04-17 12:17 | CM ---
Addendum entered by Pam Ayala 04/17/24 16:25:
Patient physician spoke with Tomy and update provided today. CM spoke with Peter and he is in agreement with placement at [facility] tomorrow pending confirmation with patient family. CM will continue to follow for discharge planning needs.
Plan; transfer to [facility] pending confirmation
Original Note:
Tentatively offered SNF bed at [facility] and CM awaiting physician discussion with family.
[2024-04-17 12:57] LABS: Glucose - Point of Care 254 mg/dl (70-99)
[2024-04-17] MEDS: NOVOLOG FLEXPEN-LOW RESISTANCE 3 UNITS SC (13:27)
--- NOTE | 2024-04-17 13:46 | W.PN.NEPH.PH ---
Today's Communication / Plan
-
Continue fluid restriction
Assessment/Plan
-
Impression:
Hyponatremia: (hypervolemic)
Rectal mass new diagnosis/GI bleed
Anemia
New diagnosis of congestive heart failure with exacerbation
Diabetes
Hyperlipidemia
Dementia
Plan:
Hyponatremia:
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
-Checked urine osmolality, adjust fluid restriction 48 ounces,
-Maintain 40 mg po Lasix daily weights down, losartan added by cardiology for cardiomyopathy
-Accurate I's and O's and daily weights.
Serum sodium improved to 131 with Samsca. Went back down to 127 today corrects to 129 for a glucose.
-
-
Date of Service: April 17, 2024
CC / HPI / ROS
-
Chief Complaint:
Hyponatremia
History of Present Illness:
Serum sodium 131 on fluid restriction and oral Lasix
Review of Systems:
Nonoliguric
Weights down
Labs
-
Labs:
WBC 9.5 10^3/uL (4.8-10.8) 04/17/24 07:23
RBC 3.54 10^6/uL (4.70-6.10) L 04/17/24 07:23
Hgb 9.8 g/dL (13.0-18.0) L 04/17/24 07:23
Hct 30.5 % (39.0-52.0) L 04/17/24 07:23
Plt Count 308 10^3/uL (130-400) 04/17/24 07:23
Sodium 127 mmol/L (135-145) L 04/17/24 07:23
Potassium 3.8 mmol/L (3.5-5.1) 04/17/24 07:23
Chloride 92 mmol/L (98-107) L 04/17/24 07:23
Carbon Dioxide 29 mmol/L (22-30) 04/17/24 07:23
BUN 25 mg/dl (9-20) H 04/17/24 07:23
Creatinine 1.0 mg/dL (0.7-1.3) 04/17/24 07:23
eGFR > 60.00 04/17/24 07:23
Glucose 201 mg/dl (70-99) H 04/17/24 07:23
Calcium 8.5 mg/dl (8.4-10.2) 04/17/24 07:23
Hjr-W-Eubrxzvhrxz Pept 2080 pg/ml 04/10/24 06:41
Albumin 2.8 g/dl (3.5-5.0) L 04/17/24 07:23
Physical Exam
-
Vital Signs:
Vital Signs
Temp Pulse Resp BP Pulse Ox
98.7 F 61 16 98/44 98
04/17/24 11:55 04/17/24 11:55 04/17/24 11:55 04/17/24 11:55 04/17/24 11:55
Cardiovascular:: Regular rate and rhythm
Respiratory:: Bilateral: CTA
Lung Excursion:: Normal
Abdomen:: Nontender and Soft
Bowel Sounds:: Normal
Extremity Edema:: None: Bilateral:
Carter Catheter: No
[2024-04-17 15:55] VITALS: BP 122/57
[2024-04-17 16:44] LABS: Glucose - Point of Care 188 mg/dl (70-99)
[2024-04-17] MEDS: LIPITOR 20 MG PO (17:00)
[2024-04-17] MEDS: NOVOLOG FLEXPEN-LOW RESISTANCE 1 UNITS SC (17:00)
[2024-04-17] MEDS: BENADRYL 25 MG PO (21:00)
[2024-04-17] MEDS: ARICEPT 10 MG PO (21:00)
[2024-04-17] MEDS: MELATONIN 10 MG PO (21:00)
[2024-04-17 22:00] LABS: Glucose - Point of Care 318 mg/dl (70-99)
[2024-04-17 23:51] VITALS: BP 128/56
[2024-04-18 06:00] VITALS: BMI 18.6
--- NOTE | 2024-04-18 07:15 | W.PN.HOSP.TC ---
Addendum entered and electronically signed by Tatiana Lamas MD 04/18/24 17:06:
I saw and evaluated the patient independently. I reviewed the resident�s note and agree with findings and plan as documented by Dr. South.
GENERAL: well developed, well nourished, male in no apparent distress
HEENT: NC/AT NO O2 requirements
HEART: regular rate and rhythm, +S1, +S2
LUNGS : clear to auscultation bilaterally
ABDOM: soft, nontender, nondistended, + bowel sounds
EXT: no cyanosis, clubbing, or edema
NEUROLOGIC: appears to have dementia
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
metastasis--MRI conducted on 04/13/2024 showed : Stage T3c N0, CRM threatened, no sphincter involvement, no suspicious extra mesorectal lymph nodes
Pulmonary Ground Glass nodule--Incidental finding on CT scan measuring 4 mm vs met--Follow-up as outpatient
Anemia, likely multifactorial (acute blood loss/iron deficiency)--s/p 1 unit pRBC--HGB 7.7 to 9.7--s/p PO and IV iron replacement
Acute exacerbation of HFmrEF--Improved--EF 40-45%--lasix to oral--apprec cards
Left pleural effusion--Chest x-ray conducted on 04/09/2024 showed a small right pleural effusion--Saturations are greater than 88% with no shortness of breath
Hyponatremia-- possibly secondary to SIADH vs. Cardiorenal --malignant cause of SIADH is a serious consideration--Fluid restriction 40 oz--apprec renal/cards--s/p samsca--sodium 123 today
NIDDM: Stable--holding glipizide, c/w metformin. LDISS--CM to ellis out Jardiance for possible GDMT as outpatient.
Hypercholesterolemia: Stable--Continue simvastatin
Dementia--I do not believe the patient understands his diagnosis or treatment plan--thinks he has a 'gas problem and when that comes out, then I can have a BM'--cont donepezil
DVT Proph-- SCDs
Code Status-- Full Code
Original Note:
Today's Communication/Plan
-
Patient's sodium was found to be 123 during today's lab results. Patient was not appropriate for discharge and discharge planning has been held until sodium levels improve and the patient is medically stable. We will continue to follow BMP and we
will move forward with discharge planning once patient is medically stable. Continue fluid restriction and Lasix.
Assessment / Plan
Assessment / Plan
Assessment/plan:
-Melena/unintentional weight loss/anemia = Adenocarcinoma of the rectum
Rectal mass biopsy positive for adenocarcinoma
Flex sig demonstrated near complete occlusion due to rectal mass and there was difficulty passing the scope. Biopsies were positive.
Follow-up CT demonstrated mass with no clear evidence of local metastasis
MRI conducted on 04/13/2024 showed : Stage T3c N0, CRM threatened, no sphincter involvement, no suspicious extra mesorectal lymph nodes
Colorectal surgery recommends outpatient chemoradiation and that the patient should follow-up with Dr. Figueroa in the outpatient setting.
Oncology recommended neoadjuvant approach with patient with treatment including chemotherapy and XRT prior to surgery. XRT has been consulted. They will arrange an outpatient follow-up for further discussion and treatment planning.
-Pulmonary Ground Glass nodule:
Incidental finding on CT scan measuring 4 mm
Follow-up as outpatient
-Anemia, likely multifactorial (acute blood loss/iron deficiency):
Hemoglobin was 7.7 on admission -was given 1 unit PRBCs in the emergency department
Hemoglobin currently 9.7 and stable
Iron studies showed low iron, low iron saturation, and low ferritin
P.o. and IV iron replacement given
Transfuse again if hemoglobin dips below 7
-Acute exacerbation of HFmrEF: Improved
Echo ejection fraction showed 40 to 45%
Labs showed elevated proBNP, right pleural effusion, and he complains of chronic cough with occasional clear/yellow sputum
Lasix switched to oral
Cardiology signed
-Left pleural effusion:
Chest x-ray conducted on 04/09/2024 showed a small right pleural effusion
Saturations are greater than 88% with no shortness of breath
Will continue to monitor
-Hyponatremia, hypervolemic possibly secondary to SIADH vs. Cardiorenal
128 on admission with high urine sodium and high urine osmolality. Improved
Given concern for rectal mass, malignant cause of SIADH is a serious consideration
Fluid restriction 40oz
Appreciate nephrology input�they believed that the hyponatremia was likely due to elevated ADH in the setting of congestive heart failure exacerbation and possible SIADH related to underlying colon malignancy. They check urine osmolality and
adjusted fluid restriction to 48 ounces. Sodium was 131 s/p Samsca 15 mg oral dose once. They recommended maintaining 40 mg of oral Lasix daily to reduce weight.
Follow I's and O's-
Sodium level is 123 on 04/18/2024. Another dose of Samsca given. Continue to follow BMP
-NIDDM: Stable
holding glipizide, c/w metformin. LDISS.
CM to ellis out Jardiance for possible GDMT as outpatient.
-Hypercholesterolemia: Stable
Continue simvastatin
-Dementia:
Continue donepezil
Diet: 2000 Calorie Diabetic, 40oz fluid restriction
DVT PPx: SCDs
Code Status: Full Code
Anticipated Discharge: 24 - 48 hours
Subjective/Interval History
-
Met with patient at the bedside. He offers no complaints at the present time except that he hopes to have a more adequate breakfast this morning. Patient asked that I speak to his son Tye. Spoke to son Tye for approximately 25 minutes and
updated him in regards to his father's current status. Son is aware that the patient needs to undergo rehabilitation following discharge.
Objective Data
-
Labs:
Labs
04/18/24 10:08
04/18/24 10:08
Vital Signs:
Vital Signs
Temp Pulse Resp BP Pulse Ox
98.9 F 68 16 128/56 97
04/17/24 23:51 04/17/24 23:51 04/17/24 23:51 04/17/24 23:51 04/17/24 23:51
I&O
04/17/24 04/18/24 04/19/24
06:59 06:59 06:59
Intake Total 480 / 480 900 / 900
Balance 480 / 480 900 / 900
Review of Systems
-
History Source: Patient
Constitutional: Reports No Symptoms
EENT: Reports No Symptoms Reported
Respiratory: Reports No Symptoms
Cardiac: Reports No Symptoms
Abdomen/GI: Reports No Symptoms
Breast: Reports No Symptoms
Genitourinary: Reports No Symptoms
Musculoskeletal: Reports No Symptoms
Skin: Reports No Symptoms
Neuro: Reports Weakness
Endocrine: Reports No Symptoms
Hematologic / Lymphatic: Reports No Symptoms
Physical Exam
-
General: No Apparent Distress
HEENT: Normocephalic, Atraumatic and Moist Mucous Membranes
Respiratory: Clear to Auscultation
Cardiac: S1/S2
Breast: Deferred by me
GI: Soft, Nontender, Nondistended and Normal Bowel Sounds
Musculoskeletal: No Clubbing, No Cyanosis and No Edema
Skin: Warm and Dry
Neuro: Awake and Oriented
Psych: Calm
[2024-04-18 07:38] VITALS: BP 113/51
--- NOTE | 2024-04-18 07:58 | CM ---
Addendum entered by Pam Ayala 04/18/24 09:48:
Correction [phone]/ fax [phone]
Addendum entered by Pam Ayala 04/18/24 08:59:
Transportation forms tubed to [facility]. CM awaiting time for ambulance for this am. [phone]. CM spoke with son Tye and reviewed IMM and son indicated that he would want this and patient should sign. CM will review with patient. CM
will continue to follow for discharge planning needs.
Original Note:
Family in agreement with placement. CM spoke with Liaison at [facility] and they are working to confirm bed today. They are to contact family and CM with update and call and report numbers. CM will continue to follow for discharge planning needs.
Plan; transfer to [facility]
[2024-04-18 08:04] LABS: Glucose - Point of Care 231 mg/dl (70-99)
[2024-04-18] MEDS: MIRALAX 17 GRAMS PO (08:14)
[2024-04-18] MEDS: PROTONIX 40 MG PO (08:14)
[2024-04-18] MEDS: COZAAR 25 MG PO (08:15)
[2024-04-18] MEDS: LASIX 40 MG PO (08:15)
[2024-04-18] MEDS: NOVOLOG FLEXPEN-LOW RESISTANCE 2 UNITS SC (08:15)
[2024-04-18] MEDS: TOPROL XL 25 MG PO (08:15)
--- NOTE | 2024-04-18 10:28 | PTCARENOTE ---
Addendum entered by Radha Marshall RN 04/18/24 12:26:
Patient with Na level 123 today. MD notified. Discharge on hold. Samsca ordered. Nephrology consult placed.
Original Note:
Report called to KAVITHA Laguerre at [facility]. Ambulance scheduled molded goods spot picker time 12pm. Peripheral IV removed. Patient aware of transfer and molded goods spot picker time.
[2024-04-18 10:39] LABS: Hematocrit 29.1 % (39.0-52.0); Hemoglobin 9.3 g/dL (13.0-18.0); Mean Corpuscular Hgb 27.4 pg (27.0-31.0); Mean Corpuscular Volume 85.8 fL (80.0-94.0); Mean Platelet Volume 9.6 fL (7.4-10.4); Platelet Count 270 10^3/uL (130-400); Red Blood Cell Count 3.39 10^6/uL (4.70-6.10); Red Cell Dist. Width 19.9 % (11.5-14.5); White Blood Cell Count 5.2 10^3/uL (4.8-10.8)
--- NOTE | 2024-04-18 11:02 | W.PN.NEPH.PH ---
Today's Communication / Plan
-
Observe follow BMP
Samsca as needed
Maintain fluid restrict at 48 oz and Lasix 40 mg p.o.
Assessment/Plan
-
Impression:
Hyponatremia: (hypervolemic)
Rectal mass new diagnosis/GI bleed
Anemia
New diagnosis of congestive heart failure with exacerbation
Diabetes
Hyperlipidemia
Dementia
Plan:
Hyponatremia:
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
-Checked urine osmolality, adjust fluid restriction 48 ounces,
-Maintain 40 mg po Lasix daily weights down, losartan added by cardiology for cardiomyopathy
-Accurate I's and O's and daily weights.
-Serum sodium improved to 131 with Samsca. Went back down to 127 on 04/17/2024
-Labs from this a.m. past
-
-
Date of Service: April 18, 2024
CC / HPI / ROS
-
Chief Complaint:
Hyponatremia
History of Present Illness:
Serum sodium 127 on fluid restriction and oral Lasix
Hemodynamically stay
Review of Systems:
Nonoliguric
Weights down
Labs
-
Labs:
WBC 5.2 10^3/uL (4.8-10.8) 04/18/24 10:08
RBC 3.39 10^6/uL (4.70-6.10) L 04/18/24 10:08
Hgb 9.3 g/dL (13.0-18.0) L 04/18/24 10:08
Hct 29.1 % (39.0-52.0) L 04/18/24 10:08
Plt Count 270 10^3/uL (130-400) 04/18/24 10:08
eGFR > 60.00 04/17/24 07:23
Ldo-Y-Nctmhfgcuug Pept 2080 pg/ml 04/10/24 06:41
Physical Exam
-
Vital Signs:
Vital Signs
Temp Pulse Resp BP Pulse Ox
97.9 F 62 18 113/51 100
04/18/24 07:38 04/18/24 07:38 04/18/24 07:38 04/18/24 07:38 04/18/24 07:38
Cardiovascular:: Regular rate and rhythm
Respiratory:: Bilateral: CTA
Lung Excursion:: Normal
Abdomen:: Nontender and Soft
Bowel Sounds:: Normal
Extremity Edema:: None: Bilateral:
Carter Catheter: No
[2024-04-18 11:13] LABS: ALT (SGPT) 31 U/L (0-50); AST (SGOT) 35 U/L (17-59); Albumin 2.6 g/dl (3.5-5.0); Alkaline Phosphatase 100 U/L (38-126); Blood Urea Nitrogen 25 mg/dl (9-20); Carbon Dioxide 27 mmol/L (22-30); Chloride 89 mmol/L (98-107); Estimated Creatinine Clearance 43 ml/min; Glucose 336 mg/dl (70-99); Magnesium 1.7 mg/dl (1.6-2.3); Potassium 3.9 mmol/L (3.5-5.1); Sodium 123 mmol/L (135-145); Total Bilirubin 0.4 mg/dl (0.2-1.3); Total Protein 4.9 g/dl (6.3-8.2); eGFR > 60.00
[2024-04-18 12:11] LABS: Glucose - Point of Care 339 mg/dl (70-99)
[2024-04-18] MEDS: NOVOLOG FLEXPEN-LOW RESISTANCE 4 UNITS SC (12:20)
[2024-04-18] MEDS: SAMSCA 7.5 MG PO (12:57)
[2024-04-18 15:01] VITALS: BP 120/55
[2024-04-18 16:38] VITALS: BP 110/42; BP 96/39; PULSE 60; O2SAT 98
[2024-04-18 16:39] LABS: Glucose - Point of Care 502 mg/dl (70-99)
--- NOTE | 2024-04-18 16:41 | PTCARENOTE ---
Addendum entered by Radha Marshall RN 04/18/24 17:58:
Venous glucose 417. notified. Sliding scale coverage increased. 11 units of regular insulin given as per new order. Lantus also ordered for this evening and glipizide for the am.
Original Note:
Patient's accu check 502. Patient asymptomatic. Stat venous glucose placed.
[2024-04-18] MEDS: LIPITOR 20 MG PO (17:16)
[2024-04-18 17:18] LABS: Glucose 417 mg/dl (70-99)
[2024-04-18] MEDS: NOVOLOG FLEXPEN-LOW RESISTANCE SC ×2 (17:20→17:32)
[2024-04-18] MEDS: NOVOLOG FLEXPEN-MODERATE RESISTANCE 11 UNITS SC (17:49)
[2024-04-18 21:10] LABS: Glucose - Point of Care 228 mg/dl (70-99)
[2024-04-18] MEDS: BENADRYL 25 MG PO (22:12)
[2024-04-18] MEDS: MELATONIN 10 MG PO (22:12)
[2024-04-18] MEDS: ARICEPT 10 MG PO (22:12)
[2024-04-18] MEDS: LANTUS 0.05 UNITS SC (22:13)
[2024-04-18 23:22] VITALS: BP 104/45
[2024-04-19 03:47] LABS: Glucose - Point of Care 241 mg/dl (70-99)
[2024-04-19 06:00] VITALS: BMI 18.6
--- NOTE | 2024-04-19 07:25 | W.PN.HOSP.TC ---
Addendum entered and electronically signed by Tatiana Lamas MD 04/19/24 16:46:
I saw and evaluated the patient independently. I reviewed the resident�s note and agree with findings and plan as documented by Dr. South.
GENERAL: well developed, well nourished, male in no apparent distress
HEENT: NC/AT NO O2 requirements
HEART: regular rate and rhythm, +S1, +S2
LUNGS : clear to auscultation bilaterally
ABDOM: soft, nontender, nondistended, + bowel sounds
EXT: no cyanosis, clubbing, or edema
NEUROLOGIC: appears to have dementia
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
sphincter involvement, no suspicious extra mesorectal lymph nodes
Pulmonary Ground Glass nodule--Incidental finding on CT scan measuring 4 mm vs met--Follow-up as outpatient
Anemia, likely multifactorial (acute blood loss/iron deficiency)--s/p 1 unit pRBC--HGB 7.7 to 9.7--s/p PO and IV iron replacement
Acute exacerbation of HFmrEF--Improved--EF 40-45%--lasix to oral--apprec cards
Left pleural effusion--Chest x-ray conducted on 04/09/2024 showed a small right pleural effusion--Saturations are greater than 88% with no shortness of breath
Hyponatremia--still problematic-- possibly secondary to SIADH vs. Cardiorenal --malignant cause of SIADH is a serious consideration--Fluid restriction 40 oz--apprec renal/cards--s/p samsca--lasix BID, samsca 7.5 today
NIDDM: Stable--holding glipizide, c/w metformin. LDISS--CM to [facility] out [facility] for possible GDMT as outpatient.
Hypercholesterolemia: Stable--Continue simvastatin
Dementia--I do not believe the patient understands his diagnosis or treatment plan--thinks he has a 'gas problem and when that comes out, then I can have a BM'--cont donepezil
DVT Proph-- SCDs
Code Status-- Full Code
Original Note:
Today's Communication/Plan
-
Patient's sodium level remains at 125 which is a marginal improvement compared to yesterday following Samsca administration. Patient remains fluid restricted. Continuing to observe and follow BMP. Appreciate nephrology consult and input.
Assessment / Plan
Assessment / Plan
Assessment/plan:
-Melena/unintentional weight loss/anemia = Adenocarcinoma of the rectum
Rectal mass biopsy positive for adenocarcinoma
Flex sig demonstrated near complete occlusion due to rectal mass and there was difficulty passing the scope. Biopsies were positive.
Follow-up CT demonstrated mass with no clear evidence of local metastasis
MRI conducted on 04/13/2024 showed : Stage T3c N0, CRM threatened, no sphincter involvement, no suspicious extra mesorectal lymph nodes
Colorectal surgery recommends outpatient chemoradiation and that the patient should follow-up with Dr. Figueroa in the outpatient setting.
Oncology recommended neoadjuvant approach with patient with treatment including chemotherapy and XRT prior to surgery. XRT has been consulted. They will arrange an outpatient follow-up for further discussion and treatment planning.
-Pulmonary Ground Glass nodule:
Incidental finding on CT scan measuring 4 mm
Follow-up as outpatient
-Anemia, likely multifactorial (acute blood loss/iron deficiency):
Hemoglobin was 7.7 on admission -was given 1 unit PRBCs in the emergency department
Hemoglobin currently 9.7 and stable
Iron studies showed low iron, low iron saturation, and low ferritin
P.o. and IV iron replacement given
Transfuse again if hemoglobin dips below 7
-Acute exacerbation of HFmrEF: Improved
Echo ejection fraction showed 40 to 45%
Labs showed elevated proBNP, right pleural effusion, and he complains of chronic cough with occasional clear/yellow sputum
Lasix switched to oral
Cardiology signed
-Left pleural effusion:
Chest x-ray conducted on 04/09/2024 showed a small right pleural effusion
Saturations are greater than 88% with no shortness of breath
Will continue to monitor
-Hyponatremia, hypervolemic possibly secondary to SIADH vs. Cardiorenal
128 on admission with high urine sodium and high urine osmolality. Improved
Given concern for rectal mass, malignant cause of SIADH is a serious consideration
Fluid restriction 40oz
Appreciate nephrology input�they believed that the hyponatremia was likely due to elevated ADH in the setting of congestive heart failure exacerbation and possible SIADH related to underlying colon malignancy. They check urine osmolality and
adjusted fluid restriction to 48 ounces. Sodium was 131 s/p Samsca 15 mg oral dose once. They recommended maintaining 40 mg of oral Lasix daily to reduce weight.
Follow I's and O's-
Sodium level is 125 on 04/19/2024. Awaiting nephrology input. Continue to follow BMP
-NIDDM: Stable
holding glipizide, c/w metformin. LDISS.
CM to ellis out [facility] for possible GDMT as outpatient.
-Hypercholesterolemia: Stable
Continue simvastatin
-Dementia:
Continue donepezil
Diet: 2000 Calorie Diabetic, 40oz fluid restriction
DVT PPx: SCDs
Code Status: Full Code
Anticipated Discharge: 24 - 48 hours
Subjective/Interval History
-
Met with the patient at the bedside. Overall, he is doing well and offers no complaints at the present time. He is happy that I have updated his family about his current health condition.
Objective Data
-
Labs:
Labs
04/19/24 07:04
04/19/24 07:04
Vital Signs:
Vital Signs
Temp Pulse Resp BP Pulse Ox
98.0 F 65 18 104/45 99
04/18/24 23:22 04/18/24 23:22 04/18/24 23:22 04/18/24 23:22 04/18/24 23:22
I&O
04/18/24 04/19/24 04/20/24
06:59 06:59 06:59
Intake Total 900 / 900 1160 / 1160
Balance 900 / 900 1160 / 1160
Review of Systems
-
History Source: Patient
Constitutional: Reports No Symptoms
EENT: Reports No Symptoms Reported
Respiratory: Reports No Symptoms
Cardiac: Reports No Symptoms
Abdomen/GI: Reports No Symptoms
Breast: Reports No Symptoms
Genitourinary: Reports No Symptoms
Musculoskeletal: Reports Muscle Weakness
Skin: Reports No Symptoms
Neuro: Reports No Symptoms
Endocrine: Reports No Symptoms
Hematologic / Lymphatic: Reports No Symptoms
Physical Exam
-
General: Well Developed, No Apparent Distress and Comfortable
HEENT: Normocephalic, Atraumatic and Moist Mucous Membranes
Respiratory: Clear to Auscultation
Cardiac: S1/S2; Negative JVD or HJR
Breast: Deferred by me
GI: Soft, Nontender, Nondistended and Normal Bowel Sounds
Rectal: Deferred by Provider
Genito-urinary: Deferred by me
Musculoskeletal: No Clubbing, No Cyanosis and No Edema
Skin: Warm and Dry
Neuro: Awake and Oriented
Psych: Calm
[2024-04-19 07:45] VITALS: BP 124/55
[2024-04-19 08:02] LABS: Glucose - Point of Care 200 mg/dl (70-99)
[2024-04-19 08:05] LABS: Hematocrit 29.5 % (39.0-52.0); Hemoglobin 9.8 g/dL (13.0-18.0); Mean Corp Hgb Conc. 33.2 g/dL (33.0-37.0); Mean Corpuscular Hgb 28.1 pg (27.0-31.0); Mean Corpuscular Volume 84.5 fL (80.0-94.0); Platelet Count 298 10^3/uL (130-400); Red Blood Cell Count 3.49 10^6/uL (4.70-6.10); Red Cell Dist. Width 19.4 % (11.5-14.5); White Blood Cell Count 9.8 10^3/uL (4.8-10.8)
[2024-04-19] MEDS: NOVOLOG FLEXPEN-MODERATE RESISTANCE 3 UNITS SC ×2 (08:14→16:53)
[2024-04-19] MEDS: PROTONIX 40 MG PO (08:15)
[2024-04-19] MEDS: COZAAR 25 MG PO (08:15)
[2024-04-19] MEDS: GLUCOTROL 2.5 MG PO (08:15)
[2024-04-19] MEDS: TOPROL XL 25 MG PO (08:16)
[2024-04-19] MEDS: LASIX 40 MG PO (08:16)
[2024-04-19] MEDS: MIRALAX PO (08:16)
[2024-04-19 08:45] LABS: ALT (SGPT) 41 U/L (0-50); AST (SGOT) 46 U/L (17-59); Albumin 3.1 g/dl (3.5-5.0); Alkaline Phosphatase 115 U/L (38-126); Blood Urea Nitrogen 30 mg/dl (9-20); Calcium 8.1 mg/dl (8.4-10.2); Carbon Dioxide 29 mmol/L (22-30); Chloride 88 mmol/L (98-107); Estimated Creatinine Clearance 44 ml/min; Glucose 184 mg/dl (70-99); Magnesium 1.8 mg/dl (1.6-2.3); Potassium 3.6 mmol/L (3.5-5.1); Sodium 125 mmol/L (135-145); Total Bilirubin 0.7 mg/dl (0.2-1.3); Total Protein 5.5 g/dl (6.3-8.2); eGFR > 60.00
[2024-04-19 11:28] LABS: Glucose - Point of Care 198 mg/dl (70-99)
[2024-04-19] MEDS: NOVOLOG FLEXPEN-MODERATE RESISTANCE 1 UNITS SC (11:28)
--- NOTE | 2024-04-19 12:47 | W.PN.NEPH.PH ---
Today's Communication / Plan
-
Lasix escalated to 40 mg twice daily
Maintain fluid restriction
Samsca 7.5 mg provided
Assessment/Plan
-
Impression:
Hyponatremia: (hypervolemic)
Rectal mass new diagnosis/GI bleed
Anemia
New diagnosis of congestive heart failure with exacerbation
Diabetes
Hyperlipidemia
Dementia
Plan:
Hyponatremia:
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
-Checked urine osmolality >400, adjust fluid restriction 48 ounces,
-increase lasix to 40 mg po Lasix BID weights down, losartan added by cardiology for cardiomyopathy
-Accurate I's and O's and daily weights.
-Serum sodium did go back down to 127 on 04/17/2024 now down to 125 despite samsca given on 04/18
-will give 7.5 samsca today
-Labs from this a.m. past
-
-
Date of Service: April 19, 2024
CC / HPI / ROS
-
Chief Complaint:
Hyponatremia
History of Present Illness:
Serum sodium down to 125 on fluid restriction and oral Lasix
Hemodynamically stable
Review of Systems:
Nonoliguric
Weights down
Labs
-
Labs:
WBC 9.8 10^3/uL (4.8-10.8) 04/19/24 07:04
RBC 3.49 10^6/uL (4.70-6.10) L 04/19/24 07:04
Hgb 9.8 g/dL (13.0-18.0) L 04/19/24 07:04
Hct 29.5 % (39.0-52.0) L 04/19/24 07:04
Plt Count 298 10^3/uL (130-400) 04/19/24 07:04
Sodium 125 mmol/L (135-145) L 04/19/24 07:04
Potassium 3.6 mmol/L (3.5-5.1) 04/19/24 07:04
Chloride 88 mmol/L (98-107) L 04/19/24 07:04
Carbon Dioxide 29 mmol/L (22-30) 04/19/24 07:04
BUN 30 mg/dl (9-20) H 04/19/24 07:04
Creatinine 1.0 mg/dL (0.7-1.3) 04/19/24 07:04
eGFR > 60.00 04/19/24 07:04
Glucose 184 mg/dl (70-99) H 04/19/24 07:04
Calcium 8.1 mg/dl (8.4-10.2) L 04/19/24 07:04
Vae-I-Shfmxflxqem Pept 2080 pg/ml 04/10/24 06:41
Albumin 3.1 g/dl (3.5-5.0) L 04/19/24 07:04
Physical Exam
-
Vital Signs:
Vital Signs
Temp Pulse Resp BP Pulse Ox
98.6 F 65 18 124/55 99
04/19/24 07:45 04/19/24 07:45 04/19/24 07:45 04/19/24 07:45 04/19/24 07:45
Cardiovascular:: Regular rate and rhythm
Respiratory:: Bilateral: CTA
Lung Excursion:: Normal
Abdomen:: Nontender and Soft
Bowel Sounds:: Normal
Extremity Edema:: None: Bilateral:
Carter Catheter: No
[2024-04-19] MEDS: SAMSCA 7.5 MG PO (13:04)
[2024-04-19 14:29] VITALS: BP 96/35
--- NOTE | 2024-04-19 15:17 | CM ---
Patient seen at bedside. CM spoke with [facility] and they are continuing to anticipate taking patient when medically appropriate. They will accept tomorrow early if medically appropriate. Please call report to [phone]/fax [phone]. Patient will
need ambulance for transportation when medically appropriate, CM will placed on chart. Physician aware that facility would like to take patient as early as possible as they are making exception for patient. CM updated patient son, Tye. CM will
continue to follow for discharge planning needs.
Plan; transfer for SNF tomorrow, pending physician assessment
[2024-04-19 16:48] LABS: Glucose - Point of Care 228 mg/dl (70-99)
[2024-04-19] MEDS: LIPITOR 20 MG PO (17:27)
[2024-04-19] MEDS: ROBITUSSIN DM 5 ML PO (20:36)
[2024-04-19] MEDS: BENADRYL 25 MG PO (20:36)
[2024-04-19] MEDS: MELATONIN 10 MG PO (20:36)
[2024-04-19] MEDS: ARICEPT 10 MG PO (20:36)
[2024-04-19] MEDS: LASIX PO (20:46)
[2024-04-19 21:27] LABS: Glucose - Point of Care 319 mg/dl (70-99)
[2024-04-19 23:24] VITALS: BP 102/51
[2024-04-20 05:22] VITALS: BMI 18.0
--- NOTE | 2024-04-20 07:25 | W.PN.HOSP.TC ---
Addendum entered and electronically signed by Tatiana Lamas MD 04/20/24 17:42:
I saw and evaluated the patient independently. I reviewed the resident�s note and agree with findings and plan as documented by Dr. South.
GENERAL: well developed, well nourished, male in no apparent distress
HEENT: NC/AT NO O2 requirements
HEART: regular rate and rhythm, +S1, +S2
LUNGS : clear to auscultation bilaterally
ABDOM: soft, nontender, nondistended, + bowel sounds
EXT: no cyanosis, clubbing, or edema
NEUROLOGIC: appears to have dementia
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
sphincter involvement, no suspicious extra mesorectal lymph nodes
Pulmonary Ground Glass nodule--Incidental finding on CT scan measuring 4 mm vs met--Follow-up as outpatient
Anemia, likely multifactorial (acute blood loss/iron deficiency)--s/p 1 unit pRBC--HGB 7.7 to 9.7--s/p PO and IV iron replacement
Acute exacerbation of HFmrEF--Improved--EF 40-45%--lasix to oral--apprec cards
Left pleural effusion--Chest x-ray conducted on 04/09/2024 showed a small right pleural effusion--Saturations are greater than 88% with no shortness of breath
Hyponatremia--? new baseline-- possibly secondary to SIADH vs. Cardiorenal --malignant cause of SIADH is a serious consideration--Fluid restriction 40 oz--apprec renal/cards--s/p samsca--lasix BID, samsca 15 today
NIDDM: Stable--holding glipizide, c/w metformin. LDISS--CM to ellis out [facility]ard[facility] for possible GDMT as outpatient.
Hypercholesterolemia: Stable--Continue simvastatin
Dementia--I do not believe the patient understands his diagnosis or treatment plan--thinks he has a 'gas problem and when that comes out, then I can have a BM'--cont donepezil
DVT Proph-- SCDs
Code Status-- Full Code
hopeful d/c tomorrow
Original Note:
Today's Communication/Plan
-
Sodium level was 125 on 04/19/2024 and went up to 126 on 04/20/2024. Nephrology gave 15 mg of Samsca and we will check repeat labs. Continue fluid restriction. They recommend monitoring for 24 hours then considering discharging tomorrow. Will move
forward with discharge planning if medically stable.
Assessment / Plan
Assessment / Plan
Assessment/plan:
-Melena/unintentional weight loss/anemia = Adenocarcinoma of the rectum
Rectal mass biopsy positive for adenocarcinoma
Flex sig demonstrated near complete occlusion due to rectal mass and there was difficulty passing the scope. Biopsies were positive.
Follow-up CT demonstrated mass with no clear evidence of local metastasis
MRI conducted on 04/13/2024 showed : Stage T3c N0, CRM threatened, no sphincter involvement, no suspicious extra mesorectal lymph nodes
Colorectal surgery recommends outpatient chemoradiation and that the patient should follow-up with Dr. Figueroa in the outpatient setting.
Oncology recommended neoadjuvant approach with patient with treatment including chemotherapy and XRT prior to surgery. XRT has been consulted. They will arrange an outpatient follow-up for further discussion and treatment planning.
-Pulmonary Ground Glass nodule:
Incidental finding on CT scan measuring 4 mm
Follow-up as outpatient
-Anemia, likely multifactorial (acute blood loss/iron deficiency):
Hemoglobin was 7.7 on admission -was given 1 unit PRBCs in the emergency department
Hemoglobin currently 9.7 and stable
Iron studies showed low iron, low iron saturation, and low ferritin
P.o. and IV iron replacement given
Transfuse again if hemoglobin dips below 7
-Acute exacerbation of HFmrEF: Improved
Echo ejection fraction showed 40 to 45%
Labs showed elevated proBNP, right pleural effusion, and he complains of chronic cough with occasional clear/yellow sputum
Lasix switched to oral
Cardiology signed
-Left pleural effusion:
Chest x-ray conducted on 04/09/2024 showed a small right pleural effusion
Saturations are greater than 88% with no shortness of breath
Will continue to monitor
-Hyponatremia, hypervolemic possibly secondary to SIADH vs. Cardiorenal
128 on admission with high urine sodium and high urine osmolality. Improved
Given concern for rectal mass, malignant cause of SIADH is a serious consideration
Fluid restriction 40oz
Appreciate nephrology input�they believed that the hyponatremia was likely due to elevated ADH in the setting of congestive heart failure exacerbation and possible SIADH related to underlying colon malignancy. They check urine osmolality and
adjusted fluid restriction to 48 ounces. Sodium was 131 s/p Samsca 15 mg oral dose once. They recommended maintaining 40 mg of oral Lasix daily to reduce weight.
Follow I's and O's-
Sodium level is 125 on 04/19/2024 and went up to 126 on 04/20/2024. Nephrology gave 15 mg of Samsca and we will check repeat labs. Continue fluid restriction. They recommend monitoring for 24 hours then considering discharging tomorrow.
-NIDDM: Stable
holding glipizide, c/w metformin. LDISS.
CM to ellis out Jardiance for possible GDMT as outpatient.
-Hypercholesterolemia: Stable
Continue simvastatin
-Dementia:
Continue donepezil
Diet: 2000 Calorie Diabetic, 40oz fluid restriction
DVT PPx: SCDs
Code Status: Full Code
Anticipated Discharge: 24 - 48 hours
Subjective/Interval History
-
Met with patient at the bedside. Overall, he is doing well and offers no complaints at the present time. He asked for ice cream to be brought to his room.
Objective Data
-
Labs:
Labs
04/20/24 07:49
04/20/24 07:49
Vital Signs:
Vital Signs
Temp Pulse Resp BP Pulse Ox
98.8 F 63 18 102/51 95
04/19/24 23:24 04/19/24 23:24 04/19/24 23:24 04/19/24 23:24 04/19/24 23:24
I&O
04/19/24 04/20/24 04/21/24
06:59 06:59 06:59
Intake Total 1160 / 1160 600 / 600
Balance 1160 / 1160 600 / 600
Review of Systems
-
History Source: Patient
All other systems: Reviewed and negative
Constitutional: Reports No Symptoms
EENT: Reports No Symptoms Reported
Respiratory: Reports No Symptoms
Cardiac: Reports No Symptoms
Abdomen/GI: Reports No Symptoms
Breast: Reports No Symptoms
Genitourinary: Reports No Symptoms
Musculoskeletal: Reports No Symptoms
Skin: Reports No Symptoms
Neuro: Reports Weakness
Endocrine: Reports No Symptoms
Hematologic / Lymphatic: Reports No Symptoms
[2024-04-20 07:48] VITALS: BP 101/43
[2024-04-20 08:09] LABS: Glucose - Point of Care 198 mg/dl (70-99)
[2024-04-20 08:10] LABS: Hematocrit 29.3 % (39.0-52.0); Hemoglobin 9.7 g/dL (13.0-18.0); Mean Corp Hgb Conc. 33.1 g/dL (33.0-37.0); Mean Corpuscular Hgb 27.5 pg (27.0-31.0); Mean Platelet Volume 9.3 fL (7.4-10.4); Platelet Count 316 10^3/uL (130-400); Red Blood Cell Count 3.53 10^6/uL (4.70-6.10); Red Cell Dist. Width 19.7 % (11.5-14.5); White Blood Cell Count 6.1 10^3/uL (4.8-10.8)
[2024-04-20 08:12] LABS: Blood Urea Nitrogen 31 mg/dl (9-20); Calcium 8.5 mg/dl (8.4-10.2); Carbon Dioxide 26 mmol/L (22-30); Chloride 92 mmol/L (98-107); Estimated Creatinine Clearance 42 ml/min; Glucose 192 mg/dl (70-99); Potassium 3.5 mmol/L (3.5-5.1); Sodium 125 mmol/L (135-145); eGFR > 60.00
[2024-04-20] MEDS: NOVOLOG FLEXPEN-MODERATE RESISTANCE 1 UNITS SC (08:57)
[2024-04-20] MEDS: COZAAR 25 MG PO (08:58)
[2024-04-20] MEDS: GLUCOTROL 2.5 MG PO (08:58)
[2024-04-20] MEDS: LASIX 40 MG PO (08:59)
[2024-04-20] MEDS: PROTONIX 40 MG PO (08:59)
[2024-04-20] MEDS: TOPROL XL 25 MG PO (08:59)
[2024-04-20] MEDS: MIRALAX PO (09:04)
[2024-04-20 09:13] LABS: ALT (SGPT) 37 U/L (0-50); AST (SGOT) 34 U/L (17-59); Albumin 2.8 g/dl (3.5-5.0); Alkaline Phosphatase 114 U/L (38-126); Blood Urea Nitrogen 31 mg/dl (9-20); Calcium 8.4 mg/dl (8.4-10.2); Carbon Dioxide 26 mmol/L (22-30); Chloride 93 mmol/L (98-107); Estimated Creatinine Clearance 42 ml/min; Glucose 191 mg/dl (70-99); Magnesium 1.9 mg/dl (1.6-2.3); Phosphorus 3.5 mg/dl (2.5-4.5); Potassium 3.7 mmol/L (3.5-5.1); Sodium 126 mmol/L (135-145); Total Bilirubin 0.5 mg/dl (0.2-1.3); Total Protein 5.1 g/dl (6.3-8.2); eGFR > 60.00
--- NOTE | 2024-04-20 12:03 | W.PN.NEPH.PH ---
Today's Communication / Plan
-
Samsca 15 mg x 1 today
Assessment/Plan
-
Impression:
Hyponatremia: (hypervolemic)
Rectal mass new diagnosis/GI bleed
Anemia
New diagnosis of congestive heart failure with exacerbation
Diabetes
Hyperlipidemia
Dementia
Plan:
Hyponatremia:
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
-Checked urine osmolality >400, adjust fluid restriction 48 ounces,
- lasix to 40 mg po Lasix BID weights down, losartan added by cardiology for cardiomyopathy
-Accurate I's and O's and daily weights.
-Unfortunately his serum sodium continues to remain low although asymptomatic.
I will give a higher dose of Samsca today continue with a fluid restriction.
Would monitor for 24 hours then consider discharging tomorrow
-
-
Date of Service: April 20, 2024
CC / HPI / ROS
-
Chief Complaint:
Hyponatremia
History of Present Illness:
Serum sodium down to 125 on fluid restriction and oral Lasix
Hemodynamically stable
Review of Systems:
Nonoliguric
Weights down
Labs
-
Labs:
WBC 6.1 10^3/uL (4.8-10.8) 04/20/24 07:49
RBC 3.53 10^6/uL (4.70-6.10) L 04/20/24 07:49
Hgb 9.7 g/dL (13.0-18.0) L 04/20/24 07:49
Hct 29.3 % (39.0-52.0) L 04/20/24 07:49
Plt Count 316 10^3/uL (130-400) 04/20/24 07:49
Sodium 126 mmol/L (135-145) L 04/20/24 07:49
Potassium 3.7 mmol/L (3.5-5.1) 04/20/24 07:49
Chloride 93 mmol/L (98-107) L 04/20/24 07:49
Carbon Dioxide 26 mmol/L (22-30) 04/20/24 07:49
BUN 31 mg/dl (9-20) H 04/20/24 07:49
Creatinine 1.0 mg/dL (0.7-1.3) 04/20/24 07:49
eGFR > 60.00 04/20/24 07:49
Glucose 191 mg/dl (70-99) H 04/20/24 07:49
Calcium 8.4 mg/dl (8.4-10.2) 04/20/24 07:49
Phosphorus 3.5 mg/dl (2.5-4.5) 04/20/24 07:49
Dgd-V-Feutpmdnbsm Pept 2080 pg/ml 04/10/24 06:41
Albumin 2.8 g/dl (3.5-5.0) L 04/20/24 07:49
Physical Exam
-
Vital Signs:
Vital Signs
Temp Pulse Resp BP Pulse Ox
98.1 F 62 18 101/43 96
04/20/24 07:48 04/20/24 08:58 04/20/24 07:48 04/20/24 08:58 04/20/24 09:25
Cardiovascular:: Regular rate and rhythm
Respiratory:: Bilateral: CTA
Lung Excursion:: Normal
Abdomen:: Nontender and Soft
Bowel Sounds:: Normal
Extremity Edema:: None: Bilateral:
Carter Catheter: No
[2024-04-20 12:39] LABS: Glucose - Point of Care 272 mg/dl (70-99)
--- NOTE | 2024-04-20 12:48 | W.PN.ONC2 ---
Today's Communication / Plan
-
.
Impression
Impression
locally advanced rectal cancer - w/ partially obstructing mass in the distal rectum. MRI pelvis - demonstrating T3 lesion - 4.8cm from anal verge - N0 - no apparent suspicious lymph nodes. CT w/ no definitive evidence of metastatic disease
iron deficiency - anemia s/p ferrlicit x 3 doses
Hyponatremia s/p tolvaptan
Plan
Plan
neoadjuvant approach w/ patient - tx w/ chemotherapy and XRT - prior to surgery
will arrange outpt f/u for further discussion and treatment planning
Dispo SNF to [facility]
Subjective/Objective
Subjective
no new complaints
denies pain or overt bleeding
Vital Signs:
Vital Signs
Temp Pulse Resp BP Pulse Ox
98.1 F 62 18 101/43 96
04/20/24 07:48 04/20/24 08:58 04/20/24 07:48 04/20/24 08:58 04/20/24 09:25
Lab Results:
Laboratory Data
WBC 6.1 10^3/uL (4.8-10.8) 04/20/24 07:49
Hgb 9.7 g/dL (13.0-18.0) L 04/20/24 07:49
Plt Count 316 10^3/uL (130-400) 04/20/24 07:49
eGFR > 60.00 04/20/24 07:49
Physical Exam
HEENT: Moist Mucous Membranes; No Jaundice
Cardiology: Normal Sinus Rhythm
Pulmonary: Clear
GI: Soft
Extremities: Pulses Present; No Edema
[2024-04-20] MEDS: NOVOLOG FLEXPEN-MODERATE RESISTANCE 5 UNITS SC (12:54)
[2024-04-20] MEDS: SAMSCA 15 MG PO (12:54)
--- NOTE | 2024-04-20 14:11 | CM ---
Addendum entered by Fariba Crews 04/20/24 14:27:
[facility] confirmed that pt can admit tomorrow or Tuesday but CANNOT take Tuesday or Tuesday. CM to follow up w/ d/c early tomorrow to confirm ability to d/c to [facility]. [facility] is requesting an early transport for pt if he is
stable.
[facility]
report to [phone]/fax [phone]
Original Note:
Chart reviewed for d/c planning. Plan for pt is to d/c to [facility] when stable.
Pt's sodium has been low, per chart, will monitor over 24 hours, poss d/c tomorrow
CM updated [facility], who stated they do not admit over the weekend but will confirm w/ CM if pt can be accepted on Tuesday
Pt will need ambulance transport at d/c
Plan: [facility] on Tuesday, awaiting to confirm this w/ [facility]
[2024-04-20 15:40] VITALS: BP 93/40
[2024-04-20 17:17] LABS: Glucose - Point of Care 205 mg/dl (70-99)
[2024-04-20] MEDS: NOVOLOG FLEXPEN-MODERATE RESISTANCE 3 UNITS SC (17:33)
[2024-04-20] MEDS: LIPITOR 20 MG PO (17:33)
[2024-04-20 21:22] LABS: Glucose - Point of Care 296 mg/dl (70-99)
[2024-04-20] MEDS: ARICEPT 10 MG PO (21:38)
[2024-04-20] MEDS: MELATONIN 10 MG PO (21:38)
[2024-04-20] MEDS: LASIX PO (21:45)
[2024-04-20 23:58] VITALS: BP 99/45
[2024-04-21 06:00] VITALS: BMI 17.8
[2024-04-21 07:35] VITALS: BP 128/50
[2024-04-21 07:39] LABS: Glucose - Point of Care 235 mg/dl (70-99)
[2024-04-21 08:18] LABS: Hematocrit 29.8 % (39.0-52.0); Hemoglobin 9.7 g/dL (13.0-18.0); Mean Corp Hgb Conc. 32.6 g/dL (33.0-37.0); Mean Corpuscular Volume 86.1 fL (80.0-94.0); Mean Platelet Volume 9.5 fL (7.4-10.4); Platelet Count 348 10^3/uL (130-400); Red Blood Cell Count 3.46 10^6/uL (4.70-6.10); Red Cell Dist. Width 19.8 % (11.5-14.5); White Blood Cell Count 5.5 10^3/uL (4.8-10.8)
[2024-04-21 08:37] LABS: ALT (SGPT) 40 U/L (0-50); AST (SGOT) 33 U/L (17-59); Albumin 3.1 g/dl (3.5-5.0); Alkaline Phosphatase 121 U/L (38-126); Blood Urea Nitrogen 35 mg/dl (9-20); Calcium 8.7 mg/dl (8.4-10.2); Carbon Dioxide 27 mmol/L (22-30); Chloride 93 mmol/L (98-107); Estimated Creatinine Clearance 38 ml/min; Glucose 200 mg/dl (70-99); Phosphorus 3.5 mg/dl (2.5-4.5); Potassium 3.7 mmol/L (3.5-5.1); Sodium 129 mmol/L (135-145); Total Bilirubin 0.7 mg/dl (0.2-1.3); Total Protein 5.5 g/dl (6.3-8.2); eGFR > 60.00
[2024-04-21] MEDS: PROTONIX 40 MG PO (08:56)
[2024-04-21] MEDS: COZAAR 25 MG PO (08:56)
[2024-04-21] MEDS: GLUCOTROL 2.5 MG PO (08:56)
[2024-04-21] MEDS: ROBITUSSIN DM 5 ML PO (08:57)
[2024-04-21] MEDS: TOPROL XL 25 MG PO (08:57)
[2024-04-21] MEDS: NOVOLOG FLEXPEN-MODERATE RESISTANCE 3 UNITS SC (08:57)
[2024-04-21] MEDS: LASIX 40 MG PO (08:57)
[2024-04-21] MEDS: MIRALAX PO (08:59)
[2024-04-21 11:50] LABS: Glucose - Point of Care 471 mg/dl (70-99)
--- NOTE | 2024-04-21 12:02 | W.PN.HOSP.TC ---
Today's Communication/Plan
-
d/c
Assessment / Plan
Assessment / Plan
Pt is an 78 year old male
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
sphincter involvement, no suspicious extra mesorectal lymph nodes
Pulmonary Ground Glass nodule--Incidental finding on CT scan measuring 4 mm vs met--Follow-up as outpatient
Anemia, likely multifactorial (acute blood loss/iron deficiency)--s/p 1 unit pRBC--HGB 7.7 to 9.7--s/p PO and IV iron replacement
Acute exacerbation of HFmrEF--Improved--EF 40-45%--lasix to oral--apprec cards
Left pleural effusion--Chest x-ray conducted on 04/09/2024 showed a small right pleural effusion--Saturations are greater than 88% with no shortness of breath
Hyponatremia--? new baseline-- possibly secondary to SIADH vs. Cardiorenal --malignant cause of SIADH is a serious consideration--Fluid restriction 40 oz--apprec renal/cards--s/p samsca--lasix BID, samsca 15 today
NIDDM: Stable-restarting glipizide/metformin---CM to ell[facility] out J[facility]iance for possible GDMT as outpatient.
Hypercholesterolemia: Stable--Continue simvastatin
Dementia--I do not believe the patient understands his diagnosis or treatment plan--thinks he has a 'gas problem and when that comes out, then I can have a BM'--cont donepezil
DVT Proph-- SCDs
Code Status-- Full Code
d/c to [facility]
Anticipated Discharge: Today
Subjective/Interval History
-
Date of Service: April 21, 2024
pt Ok for d/c --no c/o
Objective Data
-
Labs:
Laboratory Results
04/21/24 04/21/24
07:27 11:47
WBC 5.5
Hgb 9.7 L
Hct 29.8 L
Plt Count 348
Sodium 129 L
Potassium 3.7
Chloride 93 L
Carbon Dioxide 27
BUN 35 H
Creatinine 1.1
Glucose 200 H Pending
Calcium 8.7
Total Bilirubin 0.7
AST 33
ALT 40
Alkaline Phosphatase 121
Vital Signs:
max temp for 24 hours
04/20/24
23:58
Temp 98.4 F
Vital Signs
Temp Pulse Resp BP Pulse Ox
97.7 F 57 18 128/50 98
04/21/24 07:35 04/21/24 08:56 04/21/24 07:35 04/21/24 08:56 04/21/24 08:45
I&O
04/20/24 04/21/24 04/22/24
06:59 06:59 06:59
Intake Total 600 / 600 480 / 480
Balance 600 / 600 480 / 480
Review of Systems
-
All other systems: Reviewed and negative
Physical Exam
-
General: Well Developed, Well Nourished and No Apparent Distress
HEENT: Normocephalic and Atraumatic
Respiratory: Clear to Auscultation; Negative Wheezes or Rhonchi
Cardiac: Regular Rhythm and S1/S2; Negative Murmur
GI: Soft, Nontender, Nondistended and Normal Bowel Sounds
Musculoskeletal: No Clubbing, No Cyanosis and No Edema
Neuro: Awake
Psych: Calm
--- NOTE | 2024-04-21 12:09 | CM ---
Addendum entered by Pam Ayala 04/21/24 12:21:
IMM completed and signed form placed on chart.
Original Note:
Patient for discharge to SNF today. CM called to patient son Tye, update provided and patient to sign IMM. Please call report to [phone]/fax [phone] and transportation to be picked up at 1pm, family and nursing aware. CM will continuing
to follow discharge planning needs.
Plan; SNF
--- NOTE | 2024-04-21 12:20 | W.PN.NEPH.PH ---
Today's Communication / Plan
-
Continue fluid restriction and Lasix. Okay for discharge from renal standpoint no renal follow-up necessary
Assessment/Plan
-
Impression:
Hyponatremia: (hypervolemic)
Rectal mass new diagnosis/GI bleed
Anemia
New diagnosis of congestive heart failure with exacerbation
Diabetes
Hyperlipidemia
Dementia
Plan:
Hyponatremia:
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
-Checked urine osmolality >400, adjust fluid restriction 48 ounces,
- lasix to 40 mg po Lasix BID weights down, losartan added by cardiology for cardiomyopathy
-Accurate I's and O's and daily weights.
-Unfortunately his serum sodium continues to remain low although asymptomatic.
Respond[facility] to [facility] yesterday with a sodium of 129. Him okay with discharge from a renal standpoint.
No need for outpatient follow-up as his serum sodium has been stable
-
-
Date of Service: April 21, 2024
CC / HPI / ROS
-
Chief Complaint:
Hyponatremia
History of Present Illness:
Serum sodium down to 125 on fluid restriction and oral Lasix
Hemodynamically stable
Review of Systems:
Nonoliguric
Weights down
Labs
-
Labs:
WBC 5.5 10^3/uL (4.8-10.8) 04/21/24 07:27
RBC 3.46 10^6/uL (4.70-6.10) L 04/21/24 07:27
Hgb 9.7 g/dL (13.0-18.0) L 04/21/24 07:27
Hct 29.8 % (39.0-52.0) L 04/21/24 07:27
Plt Count 348 10^3/uL (130-400) 04/21/24 07:27
Sodium 129 mmol/L (135-145) L 04/21/24 07:27
Potassium 3.7 mmol/L (3.5-5.1) 04/21/24 07:27
Chloride 93 mmol/L (98-107) L 04/21/24 07:27
Carbon Dioxide 27 mmol/L (22-30) 04/21/24 07:27
BUN 35 mg/dl (9-20) H 04/21/24 07:27
Creatinine 1.1 mg/dL (0.7-1.3) 04/21/24 07:27
eGFR > 60.00 04/21/24 07:27
Calcium 8.7 mg/dl (8.4-10.2) 04/21/24 07:27
Phosphorus 3.5 mg/dl (2.5-4.5) 04/21/24 07:27
Jva-U-Yrzgcmzmntk Pept 2080 pg/ml 04/10/24 06:41
Albumin 3.1 g/dl (3.5-5.0) L 04/21/24 07:27
Physical Exam
-
Vital Signs:
Vital Signs
Temp Pulse Resp BP Pulse Ox
97.7 F 57 18 128/50 98
04/21/24 07:35 04/21/24 08:56 04/21/24 07:35 04/21/24 08:56 04/21/24 08:45
Cardiovascular:: Regular rate and rhythm
Respiratory:: Bilateral: CTA
Lung Excursion:: Normal
Abdomen:: Nontender and Soft
Bowel Sounds:: Normal
Extremity Edema:: None: Bilateral:
Carter Catheter: No
[2024-04-21 12:46] LABS: Glucose 362 mg/dl (70-99)
[2024-04-21] MEDS: NOVOLOG FLEXPEN-MODERATE RESISTANCE 9 UNITS SC (12:50)
[2024-04-21 12:55] VITALS: BP 118/57
== END 2024-04-21 13:48 | DRG 374 ==
LOC: 4 EAST ACU 13:00
PROVIDERS: Internal Medicine; Nurse Practitioner Family; Physician Assistant; ADMITTING PHYSICIAN Internal Medicine; ATTENDING PHYSICIAN Internal Medicine; CONSULT PHYSICIAN Internal Medicine Gastroenterology; CONSULT PHYSICIAN Internal Medicine Hematology & Oncology; CONSULT PHYSICIAN Specialist; CONSULT PHYSICIAN Surgery; EMERGENCY PHYSICIAN Emergency Medicine; FAMILY PHYSICIAN Family Medicine; OTHER PHYSICIAN Internal Medicine Cardiovascular Disease
PROC: 30233N1 Transfusion of Nonautologous Red Blood Cells into Peripheral Vein, Percutaneous Approach (ICD-10-PCS; 2024-04-10)
PROC: 0DBP8ZX Excision of Rectum, Via Natural or Artificial Opening Endoscopic, Diagnostic (ICD-10-PCS; 2024-04-11)
DX: C20 Malignant neoplasm of rectum (principal); I50.21 Acute systolic (congestive) heart failure; D62 Acute posthemorrhagic anemia; E22.2 Syndrome of inappropriate secretion of antidiuretic hormone; K92.2 Gastrointestinal hemorrhage, unspecified; K56.690 Other partial intestinal obstruction; Z68.1 Body mass index [BMI] 19.9 or less, adult; Z11.52 Encounter for screening for COVID-19; E11.649 Type 2 diabetes mellitus with hypoglycemia without coma; Z87.891 Personal history of nicotine dependence; E78.00 Pure hypercholesterolemia, unspecified; F03.90 Unspecified dementia, unspecified severity, without behavioral disturbance, psychotic disturbance, mood disturbance, and anxiety; R62.7 Adult failure to thrive; Z74.01 Bed confinement status
CPT/HCPCS: 88305; 36430; 71046; 71260; 72197; 74177; 80048; 80053; 82378; 82533; 82728; 82947; 82962; 83036; 83540; 83550; 83735; 83880; 83935; 84100; 84300; 84443; 85014; 85018; 85025; 85027; 86850; 86900; 86901; 86920; 87502; 87811; 88342; 93005; 93306; 97116; 97163; 97166; 97530; 99285; A9585; J2916; P9016; Q9967

== ENCOUNTER → 2024-04-26 11:49 | Outpatient (REF) | payer MEDICARE, SELFPAY ==
[2024-04-26 12:53] LABS: % Basophils 0.5 % (0-2); % Eosinophils 1.7 % (0-6); % Immature Granulocytes 0.8 % (0-0.5); % Monocytes 13.5 % (1.7-9.3); % Neutrophils 55.5 % (42.2-75.2); Absolute Eosinophils 0.1 10^3/uL (0-0.7); Absolute Immature Granulocytes 0.1 10^3/uL (0-0.05); Absolute Lymphocytes 2.1 10^3/uL (1.2-3.4); Absolute Neutrophils 4.2 10^3/uL (1.4-6.5); Hematocrit 32.7 % (39.0-52.0); Hemoglobin 10.5 g/dL (13.0-18.0); Mean Corp Hgb Conc. 32.1 g/dL (33.0-37.0); Mean Corpuscular Volume 87.2 fL (80.0-94.0); Nucleated Red Blood Cells % 0 % (-); Platelet Count 510 10^3/uL (130-400); Red Blood Cell Count 3.75 10^6/uL (4.70-6.10); Red Cell Dist. Width 19.9 % (11.5-14.5); White Blood Cell Count 7.6 10^3/uL (4.8-10.8)
[2024-04-26 13:09] LABS: ALT (SGPT) 32 U/L (0-50); AST (SGOT) 24 U/L (17-59); Albumin 3.4 g/dl (3.5-5.0); Alkaline Phosphatase 112 U/L (38-126); Blood Urea Nitrogen 65 mg/dl (9-20); Calcium 9.6 mg/dl (8.4-10.2); Carbon Dioxide 30 mmol/L (22-30); Chloride 93 mmol/L (98-107); Glucose 156 mg/dl (70-99); Magnesium 1.8 mg/dl (1.6-2.3); Potassium 3.7 mmol/L (3.5-5.1); Sodium 130 mmol/L (135-145); Total Bilirubin 0.4 mg/dl (0.2-1.3); Total Protein 6.1 g/dl (6.3-8.2); eGFR 40.25
== END ==
LOC: OLABN 11:49
PROVIDERS: ATTENDING PHYSICIAN Student in an Organized Health Care Education/Training Program
DX: D64.9 Anemia, unspecified (principal)
CPT/HCPCS: 36415; 80053; 83735; 85025

== ENCOUNTER → 2024-05-05 07:52 | Outpatient (REF) | payer OTHER, MEDICARE, SELFPAY ==
[2024-05-05 12:31] LABS: % Basophils 0.4 % (0-2); % Immature Granulocytes 0.6 % (0-0.5); % Lymphocytes 20.7 % (20.5-51.1); % Monocytes 12.7 % (1.7-9.3); % Neutrophils 64.6 % (42.2-75.2); Absolute Eosinophils 0.1 10^3/uL (0-0.7); Absolute Immature Granulocytes 0.1 10^3/uL (0-0.05); Absolute Lymphocytes 1.7 10^3/uL (1.2-3.4); Absolute Neutrophils 5.2 10^3/uL (1.4-6.5); Hematocrit 30.9 % (39.0-52.0); Hemoglobin 10.2 g/dL (13.0-18.0); Mean Corpuscular Hgb 28.6 pg (27.0-31.0); Mean Corpuscular Volume 86.6 fL (80.0-94.0); Mean Platelet Volume 10.2 fL (7.4-10.4); Nucleated Red Blood Cells % 0 % (-); Platelet Count 359 10^3/uL (130-400); Red Blood Cell Count 3.57 10^6/uL (4.70-6.10); Red Cell Dist. Width 19.8 % (11.5-14.5)
[2024-05-05 12:38] LABS: ALT (SGPT) 22 U/L (0-50); AST (SGOT) 22 U/L (17-59); Albumin 3.4 g/dl (3.5-5.0); Alkaline Phosphatase 105 U/L (38-126); Blood Urea Nitrogen 86 mg/dl (9-20); Calcium 9.5 mg/dl (8.4-10.2); Carbon Dioxide 26 mmol/L (22-30); Chloride 97 mmol/L (98-107); Glucose 143 mg/dl (70-99); Sodium 133 mmol/L (135-145); Total Bilirubin 0.3 mg/dl (0.2-1.3); eGFR 31.23
[2024-05-05 12:57] LABS: Urine Albumin Negative (Neg - Trace); Urine Bilirubin Negative (Negative); Urine Character Clear (Clear); Urine Color Yellow; Urine Glucose Negative (Negative); Urine Ketone Negative (Negative); Urine Leukocyte Negative (Negative); Urine Nitrite Negative (Negative); Urine Occult Blood Negative (Negative); Urine Specific Gravity 1.015 (<1.030); Urine Urobilinogen Negative (Neg - 1+)
== END ==
LOC: OLABN 07:52
PROVIDERS: ATTENDING PHYSICIAN Student in an Organized Health Care Education/Training Program
DX: E87.1 Hypo-osmolality and hyponatremia (principal); I10 Essential (primary) hypertension; R41.0 Disorientation, unspecified
CPT/HCPCS: 36415; 80053; 81003; 85025; 87086